=== PATIENT | female | born 1970 | race Caucasian/White ===

== ENCOUNTER 2023-05-21 15:51 | Emergency (ER) | payer MEDICAID, SELFPAY ==
[2023-05-21 16:00] VITALS: BP 119/63; PULSE 60; RESP 16; TEMP 36.8; O2SAT 98; BMI 26.6
--- NOTE | 2023-05-21 16:43 | XR_ITS ---
The [address] [address] Patient Name: TIGRE MENDOZA MRN: [id number] date: 1970 Sex: F Assigned Patient Location: ER Current Patient Location: ER Accession/Order Number: [id number] Exam Date: 05/21/2023 17:21 Report Date: 05/21/2023 17:38 At the request of: COSMO CHIANG Procedure: XR foot RT min 3V EXAM: XR foot RT min 3V HISTORY: Speaker fell on top of foot COMPARISON: None. TECHNIQUE: 3 views FINDINGS: No osseous lesion, fracture, dislocation or subluxation. Joint spaces are normal. No visualized effusion. No visualized soft tissue edema. XR/XR foot RT min 3V IMPRESSION: Normal x-rays Electronically authenticated by: DEAN MARTINEZ Date: 05/21/2023 17:38
--- NOTE | 2023-05-21 16:56 | PC.NURSE ---
pt presents to [facility] pt states that yesterday she was working in [employer] and dropped a speaker onto top of right foot. foot is swollen, bruised, and red at this time. ice applied. pulses palpable.
--- NOTE | 2023-05-21 16:58 | ED.LOWEXI1 ---
HPI - Extremity Injury (Lower) General Chief Complaint: Extremity Injury, Lower Stated Complaint: Extremity Injury, Lower Time Seen by Provider: 05/21/23 16:43 Source: patient Mode of arrival: walk-in History of Present Illness HPI Narrative: patient is a 53-year-old female presents the emergency department for the evaluation of an injury to the right foot that occurred yesterday. She dropped a garden tool in her shed on her dorsum of the right foot. She sustained an abrasion. Unknown last tetanus. No drainage from the area today. She is able to ambulate per reports pain and swelling to the dorsum of the foot, no other associated injuries. Related Data Previous Rx's Medication Instructions Recorded ketorolac 10 mg tablet 10 mg PO TID PRN pain #10 tabs 05/21/23 mupirocin 2 % topical ointment 1 applic topical BID #15 grams 05/21/23 tramadol 50 mg tablet 50 mg PO Q4H PRN pain #15 tabs 05/21/23 Allergies Allergy/AdvReac Type Severity Reaction Status Date / Time No Known Drug Allergies Allergy Verified 05/21/23 16:00 Review of Systems ROS Constitutional Denies: fever or chills Ears, nose, mouth, and throat Denies: throat pain Cardiovascular Denies: chest pain Respiratory Denies: shortness of breath or cough Gastrointestinal Denies: nausea or vomiting Musculoskeletal Reports: extremity pain; Denies: back pain or neck pain Integumentary/Breast Denies: rash Neurological Denies: headache Hematologic/Lymphatic Denies: easy bruising Exam Narrative Exam Narrative: Gen.: Awake, alert, in no distress Head: Normocephalic, atraumatic ENT: Moist mucous membranes Respiratory: No respiratory distress Extremities: Moves extremities equally, dorsum of the right foot with abrasion, mild edema, no ecchymosis or obvious deformity. Normal flexion and extension of the toes of the right foot. Psych: Normal mood and affect Neuro: No focal neuro deficit Skin: Warm, dry Constitutional Vital Signs, click to edit/add: Last Vital Signs Temp 98.2 F 05/21/23 16:00 Pulse 60 05/21/23 16:00 Resp 16 05/21/23 16:00 BP 119/63 05/21/23 16:00 Pulse Ox 98 05/21/23 16:00 O2 Del Method Room Air 05/21/23 16:00 Course Vital Signs Vital signs: Vital Signs Temperature 98.2 F 05/21/23 16:00 Pulse Rate 60 05/21/23 16:00 Respiratory Rate 16 05/21/23 16:00 Blood Pressure 119/63 05/21/23 16:00 Pulse Oximetry 98 05/21/23 16:00 Oxygen Delivery Method Room Air 05/21/23 16:00 Temperature 98.2 F 05/21/23 16:00 Pulse Rate 60 05/21/23 16:00 Respiratory Rate 16 05/21/23 16:00 Blood Pressure 119/63 05/21/23 16:00 Pulse Oximetry 98 05/21/23 16:00 Oxygen Delivery Method Room Air 05/21/23 16:00 MDM - Extremity Injury (Lower) MDM Narrative Medical decision making narrative: x-rays of the foot with no evidence of fracture or dislocation. Tetanus is updated and bacitracin applied to abrasion. Patient placed in a postop shoe for comfort. She is given a short course of analgesics, NSAIDs and antibiotic ointment to apply to the area of abrasion. Rest, ice, elevate. Follow-up with PCP and return to the Emergency Room if symptoms change or worsen Discharge Plan Discharge Chief Complaint: Extremity Injury, Lower Clinical Impression: Contusion of foot, right, Abrasion of foot, right Patient Disposition: Home, Self-Care Time of Disposition Decision: 17:44 Condition: Good Prescriptions / Home Meds: New tramadol 50 mg tablet 50 mg PO Q4H PRN (Reason: pain) Qty: 15 0RF ketorolac 10 mg tablet 10 mg PO TID PRN (Reason: pain) Qty: 10 0RF mupirocin 2 % ointment 1 applic topical BID Qty: 15 0RF Instructions: Foot Contusion (ED), Abrasion (ED) Stand Alone Forms: Portal Instructions Referrals: Juancarlos Sheth MD [Primary Care Provider] - 1 week
[2023-05-21] MEDS: KETOROLAC TROMETHAMINE 10 MG TABLET PO (17:07)
[2023-05-21] MEDS: ADACEL DIPH,PERTUSS(ACELL),TET VAC/PF 0.5 ML ADULT SYRINGE IM (17:07)
[2023-05-21] MEDS: BACITRACIN OINTMENT 28.4 GM TUBE 1 APPLIC TOPICAL (17:08)
== END 2023-05-21 17:56 | disposition home or self-care (01) ==
PROVIDERS: Emergency Provider Emergency Medicine Emergency Medical Services; PCP Family Medicine
DX: S90.31XA Contusion of right foot, initial encounter (principal); S50.811A Abrasion of right forearm, initial encounter; W20.8XXA Other cause of strike by thrown, projected or falling object, initial encounter; Z23 Encounter for immunization
CPT/HCPCS: 73630; 90471; 90715; 99284

== ENCOUNTER 2023-07-17 16:03 | Emergency (ER) | payer MEDICAID, SELFPAY ==
[2023-07-17] VITALS (23 sets, daily range): BP systolic 94–114; BP diastolic 59–71; PULSE 68–92; RESP 15–33; TEMP 36.4; O2SAT 100; BMI 24.2
--- NOTE | 2023-07-17 16:10 | ECG_ITS ---
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
[2023-07-17 16:25] LABS: Basophils Percent Auto 0.2 % (0.2-2.0); Eosinophils Absolute Auto 0.1 10^3/uL (0.0-0.7); Eosinophils Percent Auto 0.4 % (0.9-7.0); Hematocrit 44.5 % (36.0-48.0); Hemoglobin 14.8 g/dL (12.0-16.0); Immature Granulocytes Abs Auto 0.05 10^3/uL (0.00-0.03); Immature Granulocytes Pct Auto 0.3 % (0.0-0.5); Lymphocytes Absolute Auto 2.3 10^3/uL (1.2-3.8); Lymphocytes Percent Auto 15.4 % (20.5-60.0); Mean Corpuscular HGB Conc 33.3 g/dL (29.9-35.2); Mean Corpuscular Hemoglobin 30.5 pg (26.7-34.0); Mean Corpuscular Volume 91.8 fL (81.0-99.0); Mean Platelet Volume 10.6 fL (9.5-13.5); Monocytes Absolute Auto 1.2 10^3/uL (0.3-0.8); Monocytes Percent Auto 7.8 % (1.7-12.0); Neutrophils Absolute Auto 11.3 10^3/uL (1.4-6.5); Neutrophils Percent Auto 75.9 % (43.0-75.0); Platelet Count 288 10^3/uL (150-450); Red Blood Count 4.85 10^6/uL (4.20-5.40); Red Cell Distribution Width 13.1 % (11.0-15.0); White Blood Count 14.9 10^3/uL (4.0-11.0)
--- NOTE | 2023-07-17 16:25 | ED.CHESTPAI1 ---
HPI - Chest Pain General Chief Complaint: Chest Pain Stated Complaint: CHEST PAIN Time Seen by Provider: 07/17/23 16:10 Source: patient Mode of arrival: walk-in History of Present Illness HPI narrative: patient is a 53-year-old female with a history of high cholesterol who presents to the emergency department for the evaluation of chest pain that began one hour ago. Patient states she was driving into work when she developed significant tightness and heaviness in the center of the chest. It does not radiate. She states she was feeling short of breath. She went into work where he meant resources checked her vital signs and called her PCP, Dr. Sheth and she was referred to the Emergency Room. She is a one pack per day cigarette smoker. She has never had a previous stress test. She denies fevers, chills, cough, congestion. She states she recently finished prednisone for paresthesia to the right arm, the paresthesias improved while on the steroids and she states the paresthesia has now returned. She has no other peripheral edema. She states she is supposed to take a cholesterol medication that she does not take. At this time, she states that the tightness in her chest has lessened some. Risk Factors Coronary artery disease risk factors: smoking history and hyperlipidemia Related Data Home Medications Medication Instructions Recorded Confirmed ondansetron 4 mg disintegrating 4 mg PO Q8H PRN nausea and vomiting 07/17/23 07/17/23 tablet prednisone 20 mg tablet 20 mg PO DAILY 07/17/23 07/17/23 Allergies Allergy/AdvReac Type Severity Reaction Status Date / Time No Known Drug Allergies Allergy Verified 05/21/23 16:00 Review of Systems ROS Constitutional Denies: fever or chills Ears, nose, mouth, and throat Denies: throat pain Cardiovascular Reports: chest pain Respiratory Reports: shortness of breath; Denies: cough Gastrointestinal Denies: nausea or vomiting Musculoskeletal Denies: back pain or neck pain Integumentary/Breast Denies: rash Neurological Denies: headache Hematologic/Lymphatic Denies: easy bruising Exam Narrative Exam Narrative: Gen.: Awake, alert, in no distress Head: Normocephalic, atraumatic ENT: Moist mucous membranes Respiratory: No respiratory distress, lungs clear bilaterally Cardio: Regular rate and rhythm Gastrointestinal: Abdomen is soft, nondistended and nontender to palpation Extremities: Moves extremities equally, no peripheral edema Psych: Normal mood and affect Neuro: No focal neuro deficit Skin: Warm, dry, intact Constitutional Vital Signs, click to edit/add: Last Vital Signs Temp 97.6 F 07/17/23 16:09 Pulse 85 07/17/23 17:20 Resp 15 07/17/23 17:20 BP 114/71 07/17/23 16:12 Pulse Ox 100 07/17/23 16:12 O2 Del Method Room Air 07/17/23 16:09 Course Vital Signs Vital signs: Vital Signs Temperature 97.6 F 07/17/23 16:09 Pulse Rate 87 07/17/23 16:09 Respiratory Rate 18 07/17/23 16:09 Blood Pressure 114/71 07/17/23 16:09 Pulse Oximetry 100 07/17/23 16:09 Oxygen Delivery Method Room Air 07/17/23 16:09 Temperature 97.6 F 07/17/23 16:09 Pulse Rate 85 07/17/23 17:20 Respiratory Rate 15 07/17/23 17:20 Blood Pressure 114/71 07/17/23 16:12 Pulse Oximetry 100 07/17/23 16:12 Oxygen Delivery Method Room Air 07/17/23 16:09 MDM - Chest Pain MDM Narrative Medical decision making narrative: lab studies including d-dimer, BNP and initial troponin are within normal limits. Patient with no EKG changes in the Emergency Room. She was given aspirin, her pain improved while in the Emergency Room and she had no severe abdominal pain, chest pain or shortness of breath. Chest x-ray shows no evidence of acute cardiopulmonary changes. I discussed this with Dr. Sheth, he recommended that if the three hour repeat troponin for this patient is normal, she can be discharged and follow-up closely in the office. Heart score is a three. Return to the Emergency Room if symptoms change or worsen. Follow-up PCP. Repeat troponin at three hours is normal. Medical Records Data Attestation: I reviewed the patient's medical records. Lab Data Attestation: I reviewed the patient's lab results. Labs: Lab Results 07/17/23 Range/Units 16:18 WBC 14.9 H (4.0-11.0) 10^3/uL RBC 4.85 (4.20-5.40) 10^6/uL Hgb 14.8 (12.0-16.0) g/dL Hct 44.5 (36.0-48.0) % MCV 91.8 (81.0-99.0) fL MCH 30.5 (26.7-34.0) pg MCHC 33.3 (29.9-35.2) g/dL RDW 13.1 (11.0-15.0) % Plt Count 288 (150-450) 10^3/uL MPV 10.6 (9.5-13.5) fL Neut % (Auto) 75.9 H (43.0-75.0) % Lymph % (Auto) 15.4 L (20.5-60.0) % [place] % (Auto) 7.8 (1.7-12.0) % Eos % (Auto) 0.4 L (0.9-7.0) % Baso % (Auto) 0.2 (0.2-2.0) % Neut # (Auto) 11.3 H (1.4-6.5) 10^3/uL Lymph # (Auto) 2.3 (1.2-3.8) 10^3/uL [place] # (Auto) 1.2 H (0.3-0.8) 10^3/uL Eos # (Auto) 0.1 (0.0-0.7) 10^3/uL Baso # (Auto) 0.0 (0.0-0.1) 10^3/uL Abs Immat Gran (auto) 0.05 H (0.00-0.03) 10^3/uL Imm/Tot Granulo (auto) 0.3 (0.0-0.5) % PT 9.9 (9.0-11.6) sec INR 0.93 D-Dimer 0.21 (<=0.59) mg/L FEU Sodium 138 (136-145) mmol/L Potassium 3.3 L (3.5-5.1) mmol/L Chloride 103 (98-107) mmol/L Carbon Dioxide 30.1 (21.0-32.0) mmol/L Anion Gap 8.2 BUN 17.0 (7.0-18.0) mg/dL Creatinine 0.85 (0.55-1.02) mg/dL Est GFR ( Amer) >60 (>=60) Est GFR (Non-Af Amer) >60 (>=60) BUN/Creatinine Ratio 20.0 Glucose 106 (74-106) mg/dL Calcium 8.7 (8.5-10.1) mg/dL Total Bilirubin 0.4 (0.2-1.0) mg/dL AST 11 L (15-37) U/L ALT 18 (14-59) U/L Alkaline Phosphatase 99 (46-116) U/L Troponin I High Sens 5.4 (4.0-51.3) pg/mL NT-Pro-B Natriuret Pep 431.0 (<=900.0) pg/mL Total Protein 6.8 (6.4-8.2) g/dL Albumin 3.3 L (3.4-5.0) g/dL Globulin 3.5 g/dL Albumin/Globulin Ratio 0.9 Imaging Data Chest x-ray: Attestation: I have reviewed the pertinent imaging results. Radiologist's impression: Procedure: XR chest 1V EXAMINATION: XR chest 1V 07/17/2023 2:32 PM PDT HISTORY: Chest pain TECHNIQUE: Single frontal view of the chest acquired. COMPARISONS: None. FINDINGS: Lines/tubes/other: None. Heart and mediastinum: The heart and the mediastinum are within normal limits for technique. Bones: No acute osseous abnormality. Lungs: The lungs are clear. There is no evidence of pneumonia or pulmonary edema. Pleura: There is no significant pleural effusion or pneumothorax. Other: None. IMPRESSION: No acute cardiopulmonary abnormality. Electronically authenticated by: KRISH VILLALOBOS Date: 07/17/2023 17:33 ECG Data Attestation: I personally reviewed and interpreted this ECG as follows: (normal sinus rhythm at a rate of eighty-seven, no EKG ST elevation, no ectopy. EKG reviewed by attending physician) ECG interpretation date: 07/17/23 ECG interpretation time: 16:29 Heart Score History: Moderately Suspicious ECG: Normal Age: >45-<65 years Risk Factors: 1 or 2 Risk Factors Troponin: <Normal Limit Total Heart Score Recommendations & Risks:: 3 Discharge Plan Discharge Chief Complaint: Chest Pain Clinical Impression: Chest pain Patient Disposition: Home, Self-Care Time of Disposition Decision: 19:27 Condition: Good Prescriptions / Home Meds: No Action prednisone 20 mg tablet 20 mg PO DAILY ondansetron 4 mg tablet,disintegrating 4 mg PO Q8H PRN (Reason: nausea and vomiting) Instructions: Chest Pain (ED) Additional Instructions: Call Dr. Sheth's office tomorrow morning to schedule an appointment Stand Alone Forms: Portal Instructions Referrals: Juancarlos Sheth MD [Primary Care Provider] - As soon as possible
[2023-07-17] MEDS: ASPIRIN 81 MG TAB.CHEW 162 MG PO (16:31)
[2023-07-17 16:45] LABS: Alanine Aminotransferase 18 U/L (14-59); Albumin Globulin Ratio 0.9; Albumin Level 3.3 g/dL (3.4-5.0); Alkaline Phosphatase 99 U/L (46-116); Anion Gap 8.2; Aspartate Amino Transferase 11 U/L (15-37); Bilirubin Total 0.4 mg/dL (0.2-1.0); Calcium 8.7 mg/dL (8.5-10.1); Carbon Dioxide 30.1 mmol/L (21.0-32.0); Chloride 103 mmol/L (98-107); Estimated GFR (African America >60 (>=60); Estimated GFR (Non-African Ame >60 (>=60); Globulin 3.5 g/dL; Glucose 106 mg/dL (74-106); Potassium 3.3 mmol/L (3.5-5.1); Sodium 138 mmol/L (136-145); Total Protein 6.8 g/dL (6.4-8.2)
[2023-07-17 16:47] LABS: Troponin I High Sensitivity 5.4 pg/mL (4.0-51.3)
[2023-07-17 16:54] LABS: D Dimer 0.21 mg/L FEU (<=0.59)
--- NOTE | 2023-07-17 16:57 | XR_ITS ---
The [address] [address] Patient Name: TIGRE MENDOZA MRN: [id number] date: 1970 Sex: F Assigned Patient Location: ER Current Patient Location: ER Accession/Order Number: [id number] Exam Date: 07/17/2023 17:00 Report Date: 07/17/2023 17:33 At the request of: COSMO CHIANG Procedure: XR chest 1V EXAMINATION: XR chest 1V 07/17/2023 2:32 PM PDT HISTORY: Chest pain TECHNIQUE: Single frontal view of the chest acquired. COMPARISONS: None. FINDINGS: Lines/tubes/other: None. Heart and mediastinum: The heart and the mediastinum are within normal limits for technique. Bones: No acute osseous abnormality. Lungs: The lungs are clear. There is no evidence of pneumonia or pulmonary edema. Pleura: There is no significant pleural effusion or pneumothorax. Other: None. XR/XR chest 1V IMPRESSION: No acute cardiopulmonary abnormality. Electronically authenticated by: KRISH VILLALOBOS Date: 07/17/2023 17:33
[2023-07-17 17:07] LABS: INR 0.93; Prothrombin Time 9.9 sec (9.0-11.6)
[2023-07-17 19:14] LABS: Troponin I High Sensitivity 7.8 pg/mL (4.0-51.3)
== END 2023-07-17 19:45 | disposition home or self-care (01) ==
PROVIDERS: Physician Assistant; Emergency Provider Emergency Medicine; PCP Family Medicine
DX: R07.9 Chest pain, unspecified (principal); E78.00 Pure hypercholesterolemia, unspecified; F17.210 Nicotine dependence, cigarettes, uncomplicated
CPT/HCPCS: 36415; 71045; 80053; 83880; 84484; 85025; 85378; 85610; 93005; 99285

== ENCOUNTER 2023-07-19 12:26 | Outpatient (OUT) | payer MEDICAID, SELFPAY ==
--- NOTE | 2023-07-19 12:45 | CA_ITS ---
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1970 Requested By: SHOSHANA TAVERA Order Number: [id number] Reading MD: JIMMY TIDWELL Interpretive Statements Predominant rhythm is sinus with average rate of 83 bpm Tachycardia - max rate of 211 bpm (PSVT of 3 beat duration) - 24 episodes of PSVT with longest duration of 13 beats - longest episode of 39min 48 sec with rates between 113-132 bpm Bradycardia - min rate of 44 bpm - longest episode of 33min 51sec with rates between 50-58 bpm Ventricular ectopy - 2,079 total (<1%) - 2,062 PVC - 8 couplets - 9 trigeminy Patient triggered events: - associated with palpitation, SOB - associated with rates of 131, 112, 114, 101 and 134 bpm Impression: Predominant rhythm is sinus with average rate of 83 bpm Fastest rate of 211 bpm and slowest rate of 44 bpm 2,062 PVC, 8 couplets and 9 trigeminy Electronically Signed On 08-11-2023 12:29:23 EST by JIMMY TIDWELL
== END 2023-07-19 12:27 | disposition home or self-care (01) ==
LOC: CARD 12:27
PROVIDERS: PCP Family Medicine; Visit Provider Family Medicine
DX: R07.9 Chest pain, unspecified (principal)
CPT/HCPCS: 93246

== ENCOUNTER 2023-09-12 08:50 | Outpatient (OUT) | payer MEDICAID, SELFPAY ==
--- NOTE | 2023-09-12 08:54 | MR_ITS ---
The [address] [address] Patient Name: TIGRE MENDOZA MRN: [id number] date: 1970 Sex: F Assigned Patient Location: MRI Current Patient Location: MRI Accession/Order Number: [id number] Exam Date: 09/12/2023 09:00 Report Date: 09/12/2023 13:21 At the request of: SHOSHANA TAVERA Procedure: MR head/brain wo/w con EXAM: MR head/brain wo/w con HISTORY: Paresthesia R20.2 COMPARISON: None. TECHNIQUE: Multisequence MRI brain was performed with and without intravenous contrast. FINDINGS: There is no restricted diffusion to suggest acute infarct. There is no midline shift, mass effect, or abnormal extraaxial fluid collections. There are no abnormal parenchymal or leptomeningeal enhancement. The cortical sulci and ventricular system are within normal limits. Multiple nonspecific scattered foci of T2/FLAIR signal abnormality are identified in the subcortical and periventricular white matter, likely reflect chronic microvascular ischemic changes. The major intracranial flow voids are visualized. The cerebellar tonsils extend 3 mm below the level of the foramen magnum. The orbits demonstrate no suspicious enhancement or any focal lesions. The paranasal sinuses show no air-fluid level. There are mild mucosal thickening of bilateral frontal sinuses and ethmoid air cells. The mastoid air cells are clear. The calvarium and extracranial soft tissues are unremarkable. MR/MR head/brain wo/w con IMPRESSION: No acute intracranial abnormality or abnormal intracranial enhancement. Mild chronic microvascular ischemic changes. Low-lying cerebellar tonsils. Electronically authenticated by: LUIS FORD Date: 09/12/2023 13:21
--- OUTSIDE RECORDS SUMMARY | 2023-09-12 08:54 | XMS_ITS | CCD ---
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 Name Role Phone PHYSICIAN, DEFAULT Unavailable Unavailable PHYSICIAN, DEFAULT Unavailable Unavailable HOY, DR ANNA Admitting Unavailable HOY, DR ANNA Consulting Unavailable HOY, DR ANNA Attending Unavailable HOY, DR ANNA Attending Unavailable HOY, DR ANNA Admitting Unavailable HOY, DR ANNA Admitting Unavailable HOY, DR ANNA Primary Care Unavailable HOY, DR ANNA Attending Unavailable HOY, DR ANNA Admitting Unavailable HOY, DR ANNA Primary Care Unavailable HOY, DR ANNA Consulting Unavailable HOY, DR ANNA Attending Unavailable HOY, DR NANA Admitting Unavailable HOY, DR ANNA Primary Care Unavailable HOY, DR ANNA Consulting Unavailable HOY, DR ANNA Attending Unavailable JENIFFERGiuliano Attending Unavailable Allergies Allergy Classification Reported Allergen(s) Allergy Type Date of Onset Reaction(s) Facility Opioid Agonists (2 sources) Codeine Drug Allergy 04-08-2013 [facility] Repository Problems Active Problems Problem Classification Problem Date Documented Da te Episodic/Chronic Unclassified (3 sources) CONTACT W/AND (SUSP) EXPOS COVID-19; Translations: [CONTACT W/AND (SUSP) EXPOS COVID-19] Onset: 09-28-2020 Past or Other Problems Problem Classification Problem Date Documented Da te Episodic/Chronic Immunizations and screening for infectious disease (4 sources) Contact with and (suspected) exposure to other viral communicable diseases; Translations: [CONTCT EXPS OTH VIRL COMMUNICABL DZ] Onset: 07-13-2020 Episodic Other upper respiratory infections (1 source) Acute recurrent frontal sinusitis; Translations: [ACUTE RECURRENT FRONTAL SINUSITIS] Onset: 07-18-2020 Episodic Unclassified (1 source) CONTACT W/AND (SUSP) EXPOS COVID-19; Translations: [CONTACT W/AND (SUSP) EXPOS COVID-19] Onset: 09-23-2020 Results Test Name Value Interpretation Reference Range Guru itmuna Consenton 03-29-2023 Consent [id number] #[id number]:[id number] Normal [facility] Registrationon 03-29-2023 Registration [id number]:127 Normal [facility] FSHon 03-25-2021 FSH 29.0 mIU/mL Normal [facility] Comment on above: Result Comment: Adul t Female: Follicular phase 3.5 - 12.5 Ovulation phase 4.7 - 21.5 Luteal phase 1.7 - 7.7 Postmenopausal 25.8 - 134.8 Performed By: #### [facility] #### [facility] [address] [place], [place] [id number] Judi Lexus INSULINon 03-25-2021 Insulin 7.9 uIU/mL Normal 2.6-24.9 [facility] Comment on above: Performed By: #### C BC #### [facility] [address] [place] [address] Judi Lexus CBC AUTO DIFFon 03-24-2021 BASO # 0.0 103/ul Normal 0.0-0.1 [facility] Comment on above: Performed By: #### C BC #### [facility] [address] [place], [place] [id number] Judi Lexus Basophils/100 WBC (Bld) 0.4 % Normal 0.2-2.0 [facility] Comment on above: Performed By: #### C BC #### [facility] [address] [place], [place] [id number] Judi Lexus EO # 0.1 103/ul Normal 0.0-0.7 [facility] Comment on above: Performed By: #### C BC #### [facility] [address] [place], [place] [id number] Judi Lexus Eosinophils/100 WBC (Bld) 1.1 % Normal 0.9-7.0 [facility] Comment on above: Performed By: #### C BC #### [facility] [address] [address] Judi Lexus Erythrocyte distribution width (RBC) [Ratio] 13.1 % Normal 11.0-15.0 [facility] Comment on above: Performed By: #### C BC #### [facility] [address] [place] [address] Judi Lexus Hematocrit (Bld) [Volume fraction] 44.1 % Normal 36.0-48.0 [facility] Comment on above: Performed By: #### C BC #### [facility] [address] [place] [address] Judi Lexus Hemoglobin (Bld) [Mass/Vol] 14.9 g/dL Normal 12.0-16.0 [facility] Comment on above: Performed By: #### C BC #### [facility] [address] [place] [address] Judi Lexus IG # 0.01 10e3/ul Normal 0.00-0.03 [facility] Comment on above: Performed By: #### C BC #### [facility] [address] [place] [address] Judi Lexus IG % 0.1 % Normal 0.0-0.5 [facility] Comment on above: Performed By: #### C BC #### [facility] [address] [place] [address] Judi Lexus LYMPH # 1.7 103/ul Normal 1.2-3.8 [facility] Comment on above: Performed By: #### C BC #### [facility] [address] [place] [address] Judi Lexus Lymphocytes/100 WBC (Bld) 22.1 % Normal 20.5-60.0 [facility] Comment on above: Performed By: #### C BC #### [facility] [address] [place] [address] Judi Lexus MANUAL DIFF REQ NO Normal [facility] Comment on above: Performed By: #### C BC #### [facility] [address] [id number] Judi Alberts MCH (RBC) [Entitic mass] 30.0 pg Normal 26.7-34.0 [facility] Comment on above: Performed By: #### C BC #### [facility] [address] [place], [place] [id number] Judi Alberts MCHC (RBC) [Mass/Vol] 33.8 g/dL Normal 29.9-35.2 [facility] Comment on above: Performed By: #### C BC #### [facility] [address] [place], [place] [id number] Judi Alberts MCV (RBC) [Entitic vol] 88.7 fL Normal 81.0-99.0 [facility] Comment on above: Performed By: #### C BC #### [facility] [address] [place] [address] Judi Alberts MONO # 0.6 103/ul Normal 0.3-0.8 [facility] Comment on above: Performed By: #### C BC #### [facility] [address] [place], [place] [address] Judi Alberts Monocytes/100 WBC (Bld) 8.3 % Normal 1.7-12.0 [facility] Comment on above: Performed By: #### C BC #### [facility] [address] [place] [address] Judi Alberts NEUT # 5.1 103/ul Normal 1.4-6.5 [facility] Comment on above: Performed By: #### C BC #### [facility] [address] [place], [place] [id number] Judi Lexus Neutrophils/100 WBC (Bld) 68.0 % Normal 43.0-75.0 [facility] Comment on above: Performed By: #### C BC #### [facility] [address] [place], [place] [address] Judibeckie Alberts Platelet mean volume (Bld) [Entitic vol] 10.3 fL Normal 9.5-13.5 [facility] Comment on above: Performed By: #### C BC #### [facility] [address] [place], [place] [address] Judi Alberts PLT 270 103/ul Normal 150-450 [facility] Comment on above: Performed By: #### C BC #### [facility] [address] [place], [place] [address] Judi Alberts RBC 4.97 106/ul Normal 4.20-5.40 [facility] Comment on above: Performed By: #### C BC #### [facility] [address] [place], [place] [address] Judi Hartmanen WBC 7.5 103/ul Normal 4.0-11.0 [facility] Comment on above: Performed By: #### C BC #### [facility] [address] [place], [place] [address] Judi Alberts FREE THYROXINE INDEX T7on FTI 3.15 Normal [facility] Comment on above: Performed By: #### C MP, LIPID, TSH, T7 #### [facility] [address] [place] [address] Judi Alberts T3U 35.0 % Normal 23.5-40.5 [facility] Comment on above: Performed By: #### C MP, LIPID, TSH, T7 #### [facility] [address] [place], [place] [address] Judi Alberts T4 [Mass/Vol] 9.00 ug/dL Normal 5.53-11.00 [facility] Comment on above: Performed By: #### C MP, LIPID, TSH, T7 #### [facility] [address] [place], [place] [address] Judi Alberts GLYCOHEMOGLOBIN A1Con 2020 ADA RECOMMENDATION ADA THERAPEUTIC TARGET 6.0 - 7.0 ACTION SUGGESTED > 7.0 Normal [facility] Comment on above: Performed By: #### A 1C #### [facility] [address] [place], [place] [address] Judi Alberts Glucose [Mass/Vol] 105 mg/dL Normal [facility] Comment on above: Performed By: #### A 1C #### [facility] [address] [place], [place] [address] Judi Alberts HbA1c (Bld) [Mass fraction] 5.3 % Normal <=6.0 [facility] Comment on above: Performed By: #### A 1C #### [facility] [address] [place], [place] [address] Judi Alberts IRONon 03-24-2021 Iron [Mass/Vol] 36.0 ug/dL Critically low 37.0-170.0 [facility] Comment on above: Performed By: #### I SUZY #### [facility] [address] [id number] Judi Alberts LIPID PROFILEon 03-24-2021 CHOL-HDL RATIO NORM SEE BELOW Normal [facility] Comment on above: Result Comment: 3.3 - 4.4 LOW RISK 4.4 - 7.1 AVERAGE RISK 7.1 - 11.0 MODERATE RISK >11.0 HIGH RISK Performed By: #### C MP, LIPID, TSH, T7 #### [facility] [address] [place], [place] [address] Judi Lexus Cholesterol [Mass/Vol] 226 mg/dL Critically high <=200 [facility] Comment on above: Performed By: #### C MP, LIPID, TSH, T7 #### [facility] [address] [id number] Judi Lexus Cholesterol in HDL [Mass/Vol] 55 mg/dL Normal [facility] Comment on above: Performed By: #### C MP, LIPID, TSH, T7 #### [facility] [address] [phone] Judi Lexus Cholesterol in LDL [Mass/Vol] 161.6 mg/dL Normal [facility] Comment on above: Performed By: #### C MP, LIPID, TSH, T7 #### [facility] [address] [place], [place] [address] Judi Lexus Cholesterol.total/Cho lesterol in HDL [Mass ratio] 4.1 {ratio} Normal [facility] Comment on above: Performed By: #### C MP, LIPID, TSH, T7 #### [facility] [address] [place], [place] [address] Judi Lexus HDL NORMAL > or = 60 mg/dl - LOW CARDIOVASCULAR RISK <40 mg/dl - HIGH CARDIOVASCULAR RISK Normal [facility] Comment on above: Performed By: #### C MP, LIPID, TSH, T7 #### [facility] [address] [place], [place] [address] Judi Lexus LDL CALC NORMAL SEE BELOW Normal [facility] Comment on above: Result Comment: <100 mg/dl OPTIMAL 100 - 129 mg/dl NEAR OR ABOVE OPTIMAL 130 - 159 mg/dl BORDERLINE HIGH 160 - 189 mg/dl HIGH >190 mg/dl VERY HIGH Performed By: #### C MP, LIPID, TSH, T7 #### [facility] [address] [place], [place] [address] Judi Lexus Triglyceride [Mass/Vol] 47 mg/dL Normal <=150 [facility] Comment on above: Performed By: #### C MP, LIPID, TSH, T7 #### [facility] [address] [place], [place] [address] Judi Lexus VLDL CALC 9.4 mg/dL Normal [facility] Comment on above: Performed By: #### C MP, LIPID, TSH, T7 #### [facility] [address] [place], [place] [address] Judibeckie Hartmanen PROF 14(COMP METB)on 021 Albumin [Mass/Vol] 3.4 g/dL Critically low 3.5-5.0 [facility] Comment on above: Performed By: #### C MP, LIPID, TSH, T7 #### [facility] [address] [place] [address] Judi Lexus Albumin/Globulin [Mass ratio] 0.9 {ratio} Normal [facility] Comment on above: Performed By: #### C MP, LIPID, TSH, T7 #### [facility] [address] [place], [place] [address] Judi Lexus ALP [Catalytic activity/Vol] 95 U/L Normal 38-126 [facility] Comment on above: Performed By: #### C MP, LIPID, TSH, T7 #### [facility] [address] [place], [place] [address] Judi Lexus ALT [Catalytic activity/Vol] 17 U/L Normal 9-52 [facility] Comment on above: Performed By: #### C MP, LIPID, TSH, T7 #### [facility] [address] [address] Judi Lexus Anion gap [Moles/Vol] 12.0 mmol/L Normal [facility] Comment on above: Performed By: #### C MP, LIPID, TSH, T7 #### [facility] [address] [address] Judi Lexus AST [Catalytic activity/Vol] 14 U/L Normal 14-36 [facility] Comment on above: Performed By: #### C MP, LIPID, TSH, T7 #### [facility] [address] [place] [address] Judi Lexus Bilirubin [Mass/Vol] 0.3 mg/dL Normal 0.2-1.3 [facility] Comment on above: Performed By: #### C MP, LIPID, TSH, T7 #### [facility] [address] [place] [address] Judi Lexus Calcium [Mass/Vol] 9.0 mg/dL Normal 8.4-10.2 [facility] Comment on above: Performed By: #### C MP, LIPID, TSH, T7 #### [facility] [address] [place] [address] Judi Lexus Chloride [Moles/Vol] 105 mmol/L Normal 98-107 [facility] Comment on above: Performed By: #### C MP, LIPID, TSH, T7 #### [facility] [address] [place] [address] Judi Lexus CO2 [Moles/Vol] 26.3 mmol/L Normal 22.0-30.0 [facility] Comment on above: Performed By: #### C MP, LIPID, TSH, T7 #### [facility] [address] [place] [address] Judi Lexus Creatinine [Mass/Vol] 0.89 mg/dL Normal 0.52-1.04 [facility] Comment on above: Performed By: #### C MP, LIPID, TSH, T7 #### [facility] [address] [place], [place] [address] Judi Lexus EGFR-AF ZAMBIAN >60 Normal >=60 [facility] Comment on above: Performed By: #### C MP, LIPID, TSH, T7 #### [facility] [address] [address] Judi Lexus EGFR-NON AF ZAMBIAN >60 Normal >=60 [facility] Comment on above: Performed By: #### C MP, LIPID, TSH, T7 #### [facility] [address] [id number] Judi Lexus Globulin (S) [Mass/Vol] 3.6 g/dL Normal [facility] Comment on above: Performed By: #### C MP, LIPID, TSH, T7 #### [facility] [address] [address] Judi Lexus Glucose [Mass/Vol] 98 mg/dL Normal 74-106 [facility] Comment on above: Performed By: #### C MP, LIPID, TSH, T7 #### [facility] [address] [place] [address] Judi Lexus Potassium [Moles/Vol] 4.3 mmol/L Normal 3.4-5.0 [facility] Comment on above: Performed By: #### C MP, LIPID, TSH, T7 #### [facility] [address] [place] [address] Judi Lexus Protein [Mass/Vol] 7.0 g/dL Normal 6.1-8.2 [facility] Comment on above: Performed By: #### C MP, LIPID, TSH, T7 #### [facility] [address] [place] [address] Judi Lexus Sodium [Moles/Vol] 139 mmol/L Normal 137-145 [facility] Comment on above: Performed By: #### C MP, LIPID, TSH, T7 #### [facility] [address] [place] [address] Judi Lexus Urea nitrogen [Mass/Vol] 19.0 mg/dL Critically high 7.0-17.0 [facility] Comment on above: Performed By: #### C MP, LIPID, TSH, T7 #### [facility] [address] [place], [place] [address] Judi Alberts Urea nitrogen/Creatinine [Mass ratio] 21.3 mg/mg Normal [facility] Comment on above: Performed By: #### C MP, LIPID, TSH, T7 #### [facility] [address] [place], [place] [address] Judi Alberts TSHon 03-24-2021 TSH 1.176 uIU/mL Normal 0.470-4.680 [facility] Comment on above: Performed By: #### C MP, LIPID, TSH, T7 #### [facility] [address] [address] Judi Alberts TSH RANGE SEE BELOW Normal [facility] Comment on above: Result Comment: <0.3 4 UIU/ml HYPERTHYROID 0.34-5.60 UIU/ml EUTHYROID >5.60 UIU/ml HYPOTHYROID Performed By: #### C MP, LIPID, TSH, T7 #### [facility] [address] [address] Judi Alberts Covid-19 PCR (CVDTBH)on EUA Statement SEE BELOW Normal [facility] Comment on above: Result Comment: This test is not yet approved or cleared by the [place] FDA. When there are no FDA-approved or cleared tests available, and other criteria are met, FDA can make tests available under an emergency access mechanism called an Emergency Use Authorization (EUA). The EUA for this test is supported by the [employer] [place] [employer] of Health and Human Service?s (HHS?s) declaration that circumstances exist to justify the emergency use of in vitro diagnostics for the detection and/or diagnosis of the virus that causes COVID-19. This EUA will remain in effect (meaning this test can be used) for the duration of the COVID-19 declaration justifying emergency of IVDs, unless it is terminated or revoked by FDA (after which the test may no longer be used). When diagnostic testing is negative, the possibility of a false negative should be considered in the context of a patients recent exposures and the presence of clinical signs and symptoms consistent with SARS-CoV-2. Performed By: #### C VDTBH #### [facility] [address] [place] [address] Judi Alberts SARS-CoV-2 (COVID-19) RNA JEWEL+probe Ql (Unsp spec) Not detected Normal NOT DETECTED [facility] Comment on above: Result Comment: This test is not yet approved or cleared by the [place] FDA. When there are no FDA-approved or cleared tests available, and other criteria are met, FDA can make tests available under an emergency access mechanism called an Emergency Use Authorization (EUA). The EUA for this test is supported by the [place] of Health and Human Service's (HHS's) declaration that circumstances exist to justify the emergency use of in vitro diagnostics for the detection and/or diagnosis of the virus that causes COVID-19. This EUA will remain in effect (meaning this test can be used) for the duration of the COVID-19 declaration justifying emergency of IVDs, unless it is terminated or revoked by FDA (after which the test may no longer be used). Performed By: #### C [facility] #### [facility] [address] [place] [address] Judi Alberts COVID-19 PCRon 07-14-2020 SARS-CoV-2 (COVID-19) RNA JEWEL+probe Ql (Unsp spec) Not detected Normal Not Detected [facility] Comment on above: Result Comment: This nucleic acid amplification test was developed and its performance characteristics determined by [facility]. Nucleic acid amplification tests include PCR and TMA. This test has not been FDA cleared or approved. This test has been authorized by FDA under an Emergency Use Authorization (EUA). This test is only authorized for the duration of time the declaration that circumstances exist justifying the authorization of the emergency use of in vitro diagnostic tests for detection of SARS-CoV-2 virus and/or diagnosis of COVID-19 infection under section 564(b)(1) of the Act, 21 U.S.C. 360bbb-3(b) (1), unless the authorization is terminated or revoked sooner. When diagnostic testing is negative, the possibility of a false negative result should be considered in the context of a patient's recent exposures and the presence of clinical signs and symptoms consistent with COVID-19. An individual without symptoms of COVID-19 and who is not shedding SARS-CoV-2 virus would expect to have a negative (not detected) result in this assay. Performed By: #### C VDPCR #### [facility] [address] [place], [place] [address] Judi Alberts Encounters Encounter Date Encounter Type Care Provider Facility Start: 03-29-2023 End: 03-30-2023 ambulatory Giuliano SWIFT Facility:[facility] Start: 05-17-[address] SHOSHANA TAVERA Facility :[facility] Start: 04-03-2021 Encounter for genera l adult medical examination without abnormal findings DR SHOSHANA TAVERA [facility] Start: 03-24-2021 End: 03-25-[address] SHOSHANA TAVERA Facility:[facility] Start: 03-24-2021 End: 03-25-2021 Encounter for general adult medical examination without abnormal findings DR SHOSHANA TAVERA Facility:[facility] Start: 09-23-2020 End: 09-23-[address] SHOSHANA TAVERA Facility:[facility] Start: 07-13-2020 End: 07-14-[address] SHOSHANA TAVERA Facility:[facility] Start: 06-05-[address] SHOSHANA TAVERA Facility :[facility] Start: 10-25-2017 End: 10-26-2017 Ambulatory DEFAULT PHYSICIAN Facility:[facility] Payers Date Payer Category Payer Unknown [id number] 11.01.83 [id number] 1970 Unknown [id number] 11.01.83 [id number] 1971 Unknown [id number] 1971 Unknown [id number]. [id number] 1971 Unknown [id number] Private Health Insurance [id number] Self-pay [id number] Unknown Summary Purpose Family History No Family History Records FoundNo Family History Records FoundNo Family History Records Found Advance Directives No Advanced Directives Records FoundNo Advanced Directives Records FoundNo Advanced Directives Records Found Additional Source Comments INFORMATION SOURCE (unrecogn ized section and content) DATE CREATED AUTHOR 03/10/2018 [facility] DATE CREATED AUTHOR AUTHOR'S ORGANIZ ATION 04/04/2021 [facility] DATE CREATED AUTHOR AUTHOR'S ORGANIZ ATION 03/30/2023 [facility] FOR RECORDS PERTAINING TO PATIENTS WHO ARE OR HAVE BEEN ENROLLED IN A CHEMICAL DEPENDENCY/SUBSTANCEABUSE PROGRAM, SOME INFORMATION MAY BE OMITTED. This clinical summary was aggregated from multiple sources. Caution should be exercised in using it in the provision of clinical care. This summary normalizes information from multiple sources, and as a consequence, information in this document may materially change the coding, format and clinical context of patient data. In addition, data may be omitted in some cases. CLINICAL DECISIONS SHOULD BE BASED ON THE PRIMARY CLINICAL RECORDS. [facility]. provides no warranty or guarantee of the accuracy or completeness of information in this document.
--- NOTE | 2023-09-12 08:55 | CT_ITS ---
[address] [address] Patient Name: TIGRE MENDOZA MRN: [id number] date: 1970 Sex: F Assigned Patient Location: MRI Current Patient Location: Accession/Order Number: [id number] Exam Date: 09/12/2023 09:48 Report Date: 09/13/2023 15:25 At the request of: SHOSHANA TAVERA Procedure: CT lung screening low-dose EXAMINATION: CT lung screening low-dose HISTORY: Well Adult Z00.00 COMPARISON: No relevant comparison available. TECHNIQUE: Axial, Coronal, and Sagittal images were created without the administration of IV contrast material. Dose reduction techniques were achieved by using automated exposure control and/or adjustment of mA and/or kV according to patient size and/or use of iterative reconstruction technique. FINDINGS: LUNGS: No visible pulmonary disease. PLEURA: No mass, effusion, or pneumothorax. VASCULATURE: No abnormality. MICHELLE: No mass or pathologic adenopathy. MEDIASTINUM: No mass or pathologic adenopathy. CARDIAC: No enlargement, pericardial thickening, or significant calcification. AORTA: No aneurysm or dissection. CHEST WALL: No mass or axillary adenopathy BONES: No bone lesion or fracture. LIMITED ABDOMEN: No suspicious findings. Limited images of the upper abdomen. OTHER: Negative. CT/CT lung screening low-dose IMPRESSION: 1. Lung-RADS Category 1 Negative. No nodules and definitely benign nodules. Continue annual screening with LDCT in 12 months. Electronically authenticated by: EDSON CAN Date: 09/13/2023 15:25
== END 2023-09-12 08:51 | disposition home or self-care (01) ==
LOC: MRI 08:51
PROVIDERS: PCP Family Medicine; Visit Provider Family Medicine
DX: Z00.00 Encounter for general adult medical examination without abnormal findings (principal); R20.2 Paresthesia of skin
CPT/HCPCS: 70553; 71271; A9575

== ENCOUNTER 2023-10-04 06:53 | Outpatient (OUT) | payer MEDICAID, SELFPAY ==
--- OUTSIDE RECORDS SUMMARY | 2023-10-04 06:57 | XMS_ITS | CCD ---
Author Name Unknown Address [address] [place] [address] Organization [facility] Care Team Providers Care Signals Intelligence Analysis Manager Name Role Phone PHYSICIAN, DEFAULT Unavailable Unavailable [...] (2 sources) Codeine Drug Allergy 04-08-2013 [facility] Repository Problems Active Problems Problem Classification [...] Reference Range Guru itmuna Consenton 03-29-2023 Consent [id number] #1.00CD:127 Normal [facility] Registrationon 03-29-2023 Registration [id number]#1.00CD:127 Normal [facility] FSHon 03-25-2021 FSH 29.0 mIU/mL Normal [facility] Comment on above: Result Comment: Adul t Female: Follicular phase 3.5 - 12.5 Ovulation phase 4.7 - 21.5 Luteal phase 1.7 - 7.7 Postmenopausal 25.8 - 134.8 Performed By: #### [facility] #### [facility] [address] [place], [place] [id number] Juid Lexus INSULINon 03-25-2021 Insulin 7.9 uIU/mL Normal 2.6-24.9 [facility] Comment on above: Performed By: #### C BC #### [facility] [address] [place] [address] Judi Lexus CBC AUTO DIFFon 03-24-2021 BASO # 0.0 103/ul Normal 0.0-0.1 [facility] Comment on above: Performed By: #### C BC #### [facility] [address] [place], [place] [address] Judi Lexus Basophils/100 WBC (Bld) 0.4 % Normal 0.2-2.0 [facility] Comment on above: Performed By: #### C BC #### [facility] [address] [place], [place] [address] Judi Lexus EO # 0.1 103/ul Normal 0.0-0.7 [facility] Comment on above: Performed By: #### C BC #### [facility] [address] [place], [place] [address] Judi Lexus Eosinophils/100 WBC (Bld) 1.1 % Normal 0.9-7.0 [facility] Comment on above: Performed By: #### C BC #### [facility] [address] [address] Judi Lexus Erythrocyte distribution width (RBC) [Ratio] 13.1 % Normal 11.0-15.0 [facility] Comment on above: Performed By: #### C BC #### [facility] [address] [place] [address] Judi Lexus Hematocrit (Bld) [Volume fraction] 44.1 % Normal 36.0-48.0 [facility] Comment on above: Performed By: #### C BC #### [facility] [address] [place] [address] Judi Lexus Hemoglobin (Bld) [Mass/Vol] 14.9 g/dL Normal 12.0-16.0 [facility] Comment on above: Performed By: #### C BC #### [facility] [address] [place] [address] Judi Lexus IG # 0.01 10e3/ul Normal 0.00-0.03 [facility] Comment on above: Performed By: #### C BC #### [facility] [address] [place] [address] Judi Lexus IG % 0.1 % Normal 0.0-0.5 [facility] Comment on above: Performed By: #### C BC #### [facility] [address] [place] [address] Judi Lexus LYMPH # 1.7 103/ul Normal 1.2-3.8 [facility] Comment on above: Performed By: #### C BC #### [facility] [address] [place] [address] Judi Lexus Lymphocytes/100 WBC (Bld) 22.1 % Normal 20.5-60.0 [facility] Comment on above: Performed By: #### C BC #### [facility] [address] [place] [address] Judi Lexus MANUAL DIFF REQ NO Normal [facility] Comment on above: Performed By: #### C BC #### [facility] [address] [id number] Judi Alberts MCH (RBC) [Entitic mass] 30.0 pg Normal 26.7-34.0 [facility] Comment on above: Performed By: #### C BC #### [facility] [address] [place], [place] [address] Judi Alberts MCHC (RBC) [Mass/Vol] 33.8 g/dL Normal 29.9-35.2 [facility] Comment on above: Performed By: #### C BC #### [facility] [address] [place], [place] [address] Judi Alberts MCV (RBC) [Entitic vol] 88.7 fL Normal 81.0-99.0 [facility] Comment on above: Performed By: #### C BC #### [facility] [address] [place] [address] Judi Alberts MONO # 0.6 103/ul Normal 0.3-0.8 [facility] Comment on above: Performed By: #### C BC #### [facility] [address] [place], [place] [address] Judi Alberts Monocytes/100 WBC (Bld) 8.3 % Normal 1.7-12.0 [facility] Comment on above: Performed By: #### C BC #### [facility] [address] [place] [address] Judi Alberts NEUT # 5.1 103/ul Normal 1.4-6.5 [facility] Comment on above: Performed By: #### C BC #### [facility] [address] [place], [place] [address] Judi Lexus Neutrophils/100 WBC (Bld) 68.0 % Normal 43.0-75.0 [facility] Comment on above: Performed By: #### C BC #### [facility] [address] [place], [place] [address] Judibeckie Alberts Platelet mean volume (Bld) [Entitic vol] 10.3 fL Normal 9.5-13.5 [facility] Comment on above: Performed By: #### C BC #### [facility] [address] [place], [place] [address] Judi Alberts PLT 270 103/ul Normal 150-450 [facility] Comment on above: Performed By: #### C BC #### [facility] [address] [place], [place] [address] Judi Alberts RBC 4.97 106/ul Normal 4.20-5.40 [facility] Comment on above: Performed By: #### C BC #### [facility] [address] [place], [place] [address] Judi Hartmanen WBC 7.5 103/ul Normal 4.0-11.0 [facility] Comment on above: Performed By: #### C BC #### [facility] [address] [place], [place] [address] Judi Alberts FREE THYROXINE INDEX T7on FTI 3.15 Normal [facility] Comment on above: Performed By: #### C MP, LIPID, TSH, T7 #### [facility] [address] [place] [address] Judi Alberts T3U 35.0 % Normal 23.5-40.5 [facility] Comment on above: Performed By: #### C MP, LIPID, TSH, T7 #### [facility] [address] [place], [place] [address] Judi Alberts T4 [Mass/Vol] 9.00 ug/dL Normal 5.53-11.00 [facility] Comment on above: Performed By: #### C MP, LIPID, TSH, T7 #### [facility] [address] [place], [place] [address] Judi Alberts GLYCOHEMOGLOBIN A1Con 2020 ADA RECOMMENDATION ADA THERAPEUTIC TARGET 6.0 - 7.0 ACTION SUGGESTED > 7.0 Normal [facility] Comment on above: Performed By: #### A 1C #### [facility] [address] [place], [place] [address] Judi Alberts Glucose [Mass/Vol] 105 mg/dL Normal [facility] Comment on above: Performed By: #### A 1C #### [facility] [address] [place], [place] [address] Judi Alberts HbA1c (Bld) [Mass fraction] 5.3 % Normal <=6.0 [facility] Comment on above: Performed By: #### A 1C #### [facility] [address] [place], [place] [address] Judi Alberts IRONon 03-24-2021 Iron [Mass/Vol] 36.0 ug/dL Critically low 37.0-170.0 [facility] Comment on above: Performed By: #### I SUZY #### [facility] [address] [id number] Judi Alberts LIPID PROFILEon 03-24-2021 CHOL-HDL RATIO NORM SEE BELOW Normal [facility] Comment on above: Result Comment: 3.3 - 4.4 LOW RISK 4.4 - 7.1 AVERAGE RISK 7.1 - 11.0 MODERATE RISK >11.0 HIGH RISK Performed By: #### C MP, LIPID, TSH, T7 #### [facility] [address] [place], [place] [address] Judi Lexus Cholesterol [Mass/Vol] 226 mg/dL Critically high <=200 [facility] Comment on above: Performed By: #### C MP, LIPID, TSH, T7 #### [facility] [address] [id number] Judi Lexus Cholesterol in HDL [Mass/Vol] 55 mg/dL Normal [facility] Comment on above: Performed By: #### C MP, LIPID, TSH, T7 #### [facility] [address] [id number] Judi Lexus Cholesterol in LDL [Mass/Vol] 161.6 mg/dL Normal [facility] Comment on above: Performed By: #### C MP, LIPID, TSH, T7 #### [facility] [address] [place], [place] [address] Judi Lexus Cholesterol.total/Cho lesterol in HDL [Mass ratio] 4.1 {ratio} Normal [facility] Comment on above: Performed By: #### C MP, LIPID, TSH, T7 #### [facility] [address] [place], [place] [address] Judi Lexus HDL NORMAL > or = 60 mg/dl - LOW CARDIOVASCULAR RISK <40 mg/dl - HIGH CARDIOVASCULAR RISK Normal [facility] Comment on above: Performed By: #### C MP, LIPID, TSH, T7 #### [facility] [address] [place], [place] [address] Judi Lexus LDL CALC NORMAL SEE BELOW Normal [facility] Comment on above: Result Comment: <100 mg/dl OPTIMAL 100 - 129 mg/dl NEAR OR ABOVE OPTIMAL 130 - 159 mg/dl BORDERLINE HIGH 160 - 189 mg/dl HIGH >190 mg/dl VERY HIGH Performed By: #### C MP, LIPID, TSH, T7 #### [facility] [address] [place], [place] [address] Judi Lexus Triglyceride [Mass/Vol] 47 mg/dL Normal <=150 [facility] Comment on above: Performed By: #### C MP, LIPID, TSH, T7 #### [facility] [address] [place], [place] [address] Judi Lexus VLDL CALC 9.4 mg/dL Normal [facility] Comment on above: Performed By: #### C MP, LIPID, TSH, T7 #### [facility] [address] [place], [place] [address] Judibeckie Hartmanen PROF 14(COMP METB)on 021 Albumin [Mass/Vol] 3.4 g/dL Critically low 3.5-5.0 [facility] Comment on above: Performed By: #### C MP, LIPID, TSH, T7 #### [facility] [address] [place] [address] Judi Lexus Albumin/Globulin [Mass ratio] 0.9 {ratio} Normal [facility] Comment on above: Performed By: #### C MP, LIPID, TSH, T7 #### [facility] [address] [place], [place] [address] Judi Lexus ALP [Catalytic activity/Vol] 95 U/L Normal 38-126 [facility] Comment on above: Performed By: #### C MP, LIPID, TSH, T7 #### [facility] [address] [place], [place] [address] Judi Lexus ALT [Catalytic activity/Vol] 17 U/L Normal 9-52 [facility] Comment on above: Performed By: #### C MP, LIPID, TSH, T7 #### [facility] [address] [address] Judi Lexus Anion gap [Moles/Vol] 12.0 mmol/L Normal [facility] Comment on above: Performed By: #### C MP, LIPID, TSH, T7 #### [facility] [address] [address] Judi Lexus AST [Catalytic activity/Vol] 14 U/L Normal 14-36 [facility] Comment on above: Performed By: #### C MP, LIPID, TSH, T7 #### [facility] [address] [place] [address] Judi Lexus Bilirubin [Mass/Vol] 0.3 mg/dL Normal 0.2-1.3 [facility] Comment on above: Performed By: #### C MP, LIPID, TSH, T7 #### [facility] [address] [place] [address] Judi Lexus Calcium [Mass/Vol] 9.0 mg/dL Normal 8.4-10.2 [facility] Comment on above: Performed By: #### C MP, LIPID, TSH, T7 #### [facility] [address] [place] [address] Judi Lexus Chloride [Moles/Vol] 105 mmol/L Normal 98-107 [facility] Comment on above: Performed By: #### C MP, LIPID, TSH, T7 #### [facility] [address] [place] [address] Judi Lexus CO2 [Moles/Vol] 26.3 mmol/L Normal 22.0-30.0 [facility] Comment on above: Performed By: #### C MP, LIPID, TSH, T7 #### [facility] [address] [place] [address] Judi Lexus Creatinine [Mass/Vol] 0.89 mg/dL Normal 0.52-1.04 [facility] Comment on above: Performed By: #### C MP, LIPID, TSH, T7 #### [facility] [address] [place], [place] [address] Judi Lexus EGFR-AF IVORIAN >60 Normal >=60 [facility] Comment on above: Performed By: #### C MP, LIPID, TSH, T7 #### [facility] [address] [address] Judi Lexus EGFR-NON AF IVORIAN >60 Normal >=60 [facility] Comment on above: Performed By: #### C MP, LIPID, TSH, T7 #### [facility] [address] [id number] Judi Lexus Globulin (S) [Mass/Vol] 3.6 g/dL Normal [facility] Comment on above: Performed By: #### C MP, LIPID, TSH, T7 #### [facility] [address] [address] Judi Lexus Glucose [Mass/Vol] 98 mg/dL Normal 74-106 [facility] Comment on above: Performed By: #### C MP, LIPID, TSH, T7 #### [facility] [address] [place] [address] Judi Lexus Potassium [Moles/Vol] 4.3 mmol/L Normal 3.4-5.0 [facility] Comment on above: Performed By: #### C MP, LIPID, TSH, T7 #### [facility] [address] [place] [address] Judi Lexus Protein [Mass/Vol] 7.0 g/dL Normal 6.1-8.2 [facility] Comment on above: Performed By: #### C MP, LIPID, TSH, T7 #### [facility] [address] [place] [address] Judi Lexus Sodium [Moles/Vol] 139 mmol/L Normal 137-145 [facility] Comment on above: Performed By: #### C MP, LIPID, TSH, T7 #### [facility] [address] [place] [address] Judi Lexus Urea nitrogen [Mass/Vol] 19.0 mg/dL Critically high 7.0-17.0 [facility] Comment on above: Performed By: #### C MP, LIPID, TSH, T7 #### [facility] [address] [place], [place] [address] Judi Alberts Urea nitrogen/Creatinine [Mass ratio] 21.3 mg/mg Normal [facility] Comment on above: Performed By: #### C MP, LIPID, TSH, T7 #### [facility] [address] [place], [place] [address] Judi Alberts TSHon 03-24-2021 TSH 1.176 uIU/mL Normal 0.470-4.680 [facility] Comment on above: Performed By: #### C MP, LIPID, TSH, T7 #### [facility] [address] [address] Judi Alberts TSH RANGE SEE BELOW Normal [facility] Comment on above: Result Comment: <0.3 4 UIU/ml HYPERTHYROID 0.34-5.60 UIU/ml EUTHYROID >5.60 UIU/ml HYPOTHYROID Performed By: #### C MP, LIPID, TSH, T7 #### [facility] [address] [address] Judi Alberts Covid-19 PCR (CVDTBH)on EUA Statement SEE BELOW Normal [facility] Comment on above: Result Comment: This test is not yet approved or cleared by the [place] FDA. When there are no FDA-approved or cleared tests available, and other criteria are met, FDA can make tests available under an emergency access mechanism called an Emergency Use Authorization (EUA). The EUA for this test is supported by the Labeling Strategist of Health and Human Service?s (HHS?s) declaration [...] SARS-CoV-2. Performed By: #### C VDTBH #### [facility] [address] [place] [address] Judi Alberts SARS-CoV-2 (COVID-19) RNA JEWEL+probe Ql (Unsp spec) Not detected Normal NOT DETECTED [facility] Comment on above: Result Comment: This test is not yet approved or cleared by the [place] FDA. When there are no FDA-approved or cleared tests available, and other criteria are met, FDA can make tests available under an emergency access mechanism called an Emergency Use Authorization (EUA). The EUA for this test is supported by the Labeling Strategist of Health and Human Service's (HHS's) declaration [...] longer be used). Performed By: #### C [facility] #### [facility] [address] [place] [address] Judi Alberts COVID-19 PCRon 07-14-2020 SARS-CoV-2 (COVID-19) RNA JEWEL+probe Ql (Unsp spec) Not detected Normal Not Detected [facility] Comment on above: Result Comment: This nucleic acid amplification test was developed and its performance characteristics determined by [employer]. Nucleic acid amplification tests include PCR and [...] assay. Performed By: #### C VDPCR #### [facility] [address] [place], [place] [address] Judi Alberts Encounters Encounter Date Encounter Type Care Provider Facility Start: 03-29-2023 End: 03-30-2023 ambulatory Giuliano SWIFT Facility:[facility] Start: 05-17-[address] SHOSHANA TAVERA Facility :[facility] Start: 04-03-2021 Encounter for genera l adult medical examination without abnormal findings DR SHOSHANA TAVERA [facility] Start: 03-24-2021 End: 03-25-[address] SHOSHANA TAVERA Facility:[facility] Start: 03-24-2021 End: 03-25-2021 Encounter for general adult medical examination without abnormal findings DR SHOSHANA TAVERA Facility:[facility] Start: 09-23-2020 End: 09-23-[address] SHOSHANA TAVERA Facility:[facility] Start: 07-13-2020 End: 07-14-[address] SHOSHANA TAVERA Facility:[facility] Start: 06-05-[address] SHOSHANA TAVERA Facility :[facility] Start: 10-25-2017 End: 10-26-2017 Ambulatory DEFAULT PHYSICIAN Facility:[facility] Payers Date Payer Category Payer Unknown [id number] 11.01.83 [id number] 1970 Unknown [id number] 11.01.83 [id number] 1970 Unknown [id number] 1970 Unknown [id number] 11.01. [id number] 1970 Unknown [id number] 1958 Private Health Insurance [id number] Self-pay [id number] Unknown Summary Purpose Family History No Family History Records FoundNo Family History Records FoundNo Family History Records Found Advance Directives No Advanced Directives Records FoundNo Advanced Directives Records FoundNo Advanced Directives Records Found Additional Source Comments INFORMATION SOURCE (unrecogn ized section and content) DATE CREATED AUTHOR 03/10/2018 [facility] DATE CREATED AUTHOR AUTHOR'S ORGANIZ ATION 04/04/[address] [facility] DATE CREATED AUTHOR AUTHOR'S ORGANIZ ATION 03/30/2023 [facility] FOR RECORDS PERTAINING TO PATIENTS WHO ARE [...] BE BASED ON THE PRIMARY CLINICAL RECORDS. [facility] [employer] [facility]. provides no warranty or guarantee of the accuracy or completeness of information in this document.
[2023-10-04 07:10] LABS: Basophils Percent Auto 0.4 % (0.2-2.0); Eosinophils Absolute Auto 0.1 10^3/uL (0.0-0.7); Eosinophils Percent Auto 0.9 % (0.9-7.0); Hematocrit 47.4 % (36.0-48.0); Hemoglobin 15.5 g/dL (12.0-16.0); Immature Granulocytes Abs Auto 0.03 10^3/uL (0.00-0.03); Immature Granulocytes Pct Auto 0.3 % (0.0-0.5); Lymphocytes Absolute Auto 2.8 10^3/uL (1.2-3.8); Lymphocytes Percent Auto 29.4 % (20.5-60.0); Mean Corpuscular HGB Conc 32.7 g/dL (29.9-35.2); Mean Corpuscular Hemoglobin 29.6 pg (26.7-34.0); Mean Corpuscular Volume 90.5 fL (81.0-99.0); Mean Platelet Volume 10.8 fL (9.5-13.5); Monocytes Absolute Auto 0.8 10^3/uL (0.3-0.8); Monocytes Percent Auto 8.4 % (1.7-12.0); Neutrophils Absolute Auto 5.7 10^3/uL (1.4-6.5); Neutrophils Percent Auto 60.6 % (43.0-75.0); Platelet Count 298 10^3/uL (150-450); Red Blood Count 5.24 10^6/uL (4.20-5.40); Red Cell Distribution Width 13.3 % (11.0-15.0); White Blood Count 9.4 10^3/uL (4.0-11.0)
[2023-10-04 07:49] LABS: Estimated Average Glucose 111 mg/dL; Glycohemoglobin A1C 5.5 % (4.5-6.2)
[2023-10-04 08:04] LABS: Alanine Aminotransferase 14 U/L (14-59); Albumin Globulin Ratio 0.9; Albumin Level 3.5 g/dL (3.4-5.0); Alkaline Phosphatase 81 U/L (46-116); Anion Gap 12.5; Aspartate Amino Transferase 11 U/L (15-37); BUN Creatinine Ratio 26.4; Bilirubin Total 0.4 mg/dL (0.2-1.0); Calcium 9.2 mg/dL (8.5-10.1); Chloride 104 mmol/L (98-107); Chol HDL Ratio 4.4; Cholesterol 242 mg/dL (<=200); Estimated GFR (African America >60 (>=60); Estimated GFR (Non-African Ame >60 (>=60); Free T3 3.16 pg/mL (2.18-3.98); Globulin 3.9 g/dL; Glucose 92 mg/dL (74-106); HDL Cholesterol 55 mg/dL (40-60); Potassium 4.5 mmol/L (3.5-5.1); Sodium 140 mmol/L (136-145); Total Protein 7.4 g/dL (6.4-8.2); Triglycerides 127 mg/dL (<=150); VLDL CHOLESTEROL 25.4 mg/dL
[2023-10-06 10:07] LABS: Insulin 12.9 uIU/mL (2.6-24.9)
== END 2023-10-04 06:54 | disposition home or self-care (01) ==
LOC: LAB 06:55
PROVIDERS: PCP Family Medicine; Visit Provider Family Medicine
DX: R20.2 Paresthesia of skin (principal); G47.00 Insomnia, unspecified; M79.606 Pain in leg, unspecified; E78.5 Hyperlipidemia, unspecified; R73.09 Other abnormal glucose; Z12.12 Encounter for screening for malignant neoplasm of rectum; D64.9 Anemia, unspecified; E55.9 Vitamin D deficiency, unspecified
CPT/HCPCS: 36415; 80053; 80061; 82306; 83036; 83525; 83540; 84436; 84443; 84481; 85025

== ENCOUNTER 2023-10-24 09:23 | Outpatient (OUT) | payer MEDICAID, SELFPAY ==
--- OUTSIDE RECORDS SUMMARY | 2023-10-24 09:28 | XMS_ITS | CCD ---
Author Name Unknown Address [address] [place] [address] Organization [facility] Care Team Providers Care Detective Private Eye Name Role Phone PHYSICIAN, DEFAULT Unavailable Unavailable [...] (2 sources) Codeine Drug Allergy 04-08-2013 [facility] Repository Problems Active Problems Problem Classification Problem [...] Reference Range Guru itmuna Consenton 03-29-2023 Consent [id number] #[id number]:127 Normal [facility] Registrationon 03-29-2023 Registration [id number]:127 Normal [facility] FSHon 03-25-2021 FSH 29.0 mIU/mL Normal [facility] Comment on above: Result Comment: Adul t Female: Follicular phase 3.5 - 12.5 Ovulation phase 4.7 - 21.5 Luteal phase 1.7 - 7.7 Postmenopausal 25.8 - 134.8 Performed By: #### L [facility] #### [facility] [address] [place], [place] [id number] Judi Lexus INSULINon 03-25-2021 Insulin 7.9 uIU/mL Normal 2.6-24.9 [facility] Comment on above: Performed By: #### C BC #### [facility] [address] [place] [address] Judi Lexus CBC AUTO DIFFon 03-24-2021 BASO # 0.0 103/ul Normal 0.0-0.1 [facility] Comment on above: Performed By: #### C BC #### [facility] [address] [place], [place] [id number] Judi Lexus Basophils/100 WBC (Bld) 0.4 % Normal 0.2-2.0 [facility] Comment on above: Performed By: #### C BC #### [facility] [address] [place], [place] [address] Judi Lexus EO # 0.1 103/ul Normal 0.0-0.7 [facility] Comment on above: Performed By: #### C BC #### [facility] [address] [place], [place] [address] Judi Lexus Eosinophils/100 WBC (Bld) 1.1 % Normal 0.9-7.0 [facility] Comment on above: Performed By: #### C BC #### [facility] [address] [address] Judi Lexus Erythrocyte distribution width (RBC) [Ratio] 13.1 % Normal 11.0-15.0 [facility] Comment on above: Performed By: #### C BC #### [facility] [address] [place] [address] Judi Lexus Hematocrit (Bld) [Volume fraction] 44.1 % Normal 36.0-48.0 [facility] Comment on above: Performed By: #### C BC #### [facility] [address] [place] [address] Judi Lexus Hemoglobin (Bld) [Mass/Vol] 14.9 g/dL Normal 12.0-16.0 [facility] Comment on above: Performed By: #### C BC #### [facility] [address] [place] [address] Judi Lexus IG # 0.01 10e3/ul Normal 0.00-0.03 [facility] Comment on above: Performed By: #### C BC #### [facility] [address] [place] [address] Judi Lexus IG % 0.1 % Normal 0.0-0.5 [facility] Comment on above: Performed By: #### C BC #### [facility] [address] [place] [address] Judi Lexus LYMPH # 1.7 103/ul Normal 1.2-3.8 [facility] Comment on above: Performed By: #### C BC #### [facility] [address] [place] [address] Judi Lexus Lymphocytes/100 WBC (Bld) 22.1 % Normal 20.5-60.0 [facility] Comment on above: Performed By: #### C BC #### [facility] [address] [place] [address] Judi Lexus MANUAL DIFF REQ NO Normal [facility] Comment on above: Performed By: #### C BC #### [facility] [address] [id number] Judi Alberts MCH (RBC) [Entitic mass] 30.0 pg Normal 26.7-34.0 [facility] Comment on above: Performed By: #### C BC #### [facility] [address] [place], [place] [address] Judi Alberts MCHC (RBC) [Mass/Vol] 33.8 g/dL Normal 29.9-35.2 [facility] Comment on above: Performed By: #### C BC #### [facility] [address] [place], [place] [address] Judi Alberts MCV (RBC) [Entitic vol] 88.7 fL Normal 81.0-99.0 [facility] Comment on above: Performed By: #### C BC #### [facility] [address] [place] [address] Judi Alberts MONO # 0.6 103/ul Normal 0.3-0.8 [facility] Comment on above: Performed By: #### C BC #### [facility] [address] [place], [place] [address] Judi Alberts Monocytes/100 WBC (Bld) 8.3 % Normal 1.7-12.0 [facility] Comment on above: Performed By: #### C BC #### [facility] [address] [place] [address] Judi Alberts NEUT # 5.1 103/ul Normal 1.4-6.5 [facility] Comment on above: Performed By: #### C BC #### [facility] [address] [place], [place] [address] Judi Lexus Neutrophils/100 WBC (Bld) 68.0 % Normal 43.0-75.0 [facility] Comment on above: Performed By: #### C BC #### [facility] [address] [place], [place] [address] Judibeckie Alberts Platelet mean volume (Bld) [Entitic vol] 10.3 fL Normal 9.5-13.5 [facility] Comment on above: Performed By: #### C BC #### [facility] [address] [place], [place] [address] Judi Alberts PLT 270 103/ul Normal 150-450 [facility] Comment on above: Performed By: #### C BC #### [facility] [address] [place], [place] [address] Judi Alberts RBC 4.97 106/ul Normal 4.20-5.40 [facility] Comment on above: Performed By: #### C BC #### [facility] [address] [place], [place] [address] Judi Hartmanen WBC 7.5 103/ul Normal 4.0-11.0 [facility] Comment on above: Performed By: #### C BC #### [facility] [address] [place], [place] [address] Judi Alberts FREE THYROXINE INDEX T7on FTI 3.[address] [facility] Comment on above: Performed By: #### C MP, LIPID, TSH, T7 #### [facility] [address] [place] [address] Judi Alberts T3U 35.0 % Normal 23.5-40.5 [facility] Comment on above: Performed By: #### C MP, LIPID, TSH, T7 #### [facility] [address] [place], [place] [address] Judi Alberts T4 [Mass/Vol] 9.00 ug/dL Normal 5.53-11.00 [facility] Comment on above: Performed By: #### C MP, LIPID, TSH, T7 #### [facility] [address] [place], [place] [address] Judi Alberts GLYCOHEMOGLOBIN A1Con 2020 ADA RECOMMENDATION ADA THERAPEUTIC TARGET 6.0 - 7.0 ACTION SUGGESTED > 7.[address] [facility] Comment on above: Performed By: #### A 1C #### [facility] [address] [place], [place] [address] Judi Alberts Glucose [Mass/Vol] 105 mg/dL Normal [facility] Comment on above: Performed By: #### A 1C #### [facility] [address] [place], [place] [address] Judi Alberts HbA1c (Bld) [Mass fraction] 5.3 % Normal <=6.0 [facility] Comment on above: Performed By: #### A 1C #### [facility] [address] [place], [place] [address] Judi Alberts IRONon 03-24-2021 Iron [Mass/Vol] 36.0 ug/dL Critically low 37.0-170.0 [facility] Comment on above: Performed By: #### I SUZY #### [facility] [address] [address] Judi Alberts LIPID PROFILEon 03-24-2021 CHOL-HDL RATIO NORM SEE BELOW Normal [facility] Comment on above: Result Comment: 3.3 - 4.4 LOW RISK 4.4 - 7.1 AVERAGE RISK 7.1 - 11.0 MODERATE RISK >11.0 HIGH RISK Performed By: #### C MP, LIPID, TSH, T7 #### [facility] [address] [place], [place] [address] Judi Lexus Cholesterol [Mass/Vol] 226 mg/dL Critically high <=200 [facility] Comment on above: Performed By: #### C MP, LIPID, TSH, T7 #### [facility] [address] [address] Judi Lexus Cholesterol in HDL [Mass/Vol] 55 mg/dL Normal [facility] Comment on above: Performed By: #### C MP, LIPID, TSH, T7 #### [facility] [address] [address] Judi Lexus Cholesterol in LDL [Mass/Vol] 161.6 mg/dL Normal [facility] Comment on above: Performed By: #### C MP, LIPID, TSH, T7 #### [facility] [address] [place], [place] [address] Judi Lexus Cholesterol.total/Cho lesterol in HDL [Mass ratio] 4.1 {ratio} Normal [facility] Comment on above: Performed By: #### C MP, LIPID, TSH, T7 #### [facility] [address] [place], [place] [address] Judi Lexus HDL NORMAL > or = 60 mg/dl - LOW CARDIOVASCULAR RISK <40 mg/dl - HIGH CARDIOVASCULAR RISK Normal [facility] Comment on above: Performed By: #### C MP, LIPID, TSH, T7 #### [facility] [address] [place], [place] [address] Judi Lexus LDL CALC NORMAL SEE BELOW Normal [facility] Comment on above: Result Comment: <100 mg/dl OPTIMAL 100 - 129 mg/dl NEAR OR ABOVE OPTIMAL 130 - 159 mg/dl BORDERLINE HIGH 160 - 189 mg/dl HIGH >190 mg/dl VERY HIGH Performed By: #### C MP, LIPID, TSH, T7 #### [facility] [address] [place], [place] [address] Judi Lexus Triglyceride [Mass/Vol] 47 mg/dL Normal <=150 [facility] Comment on above: Performed By: #### C MP, LIPID, TSH, T7 #### [facility] [address] [place], [place] [address] Judi Lexus VLDL CALC 9.4 mg/dL Normal [facility] Comment on above: Performed By: #### C MP, LIPID, TSH, T7 #### [facility] [address] [place], [place] [address] Judibeckie Hartmanen PROF 14(COMP METB)on 021 Albumin [Mass/Vol] 3.4 g/dL Critically low 3.5-5.0 [facility] Comment on above: Performed By: #### C MP, LIPID, TSH, T7 #### [facility] [address] [place] [address] Judi Lexus Albumin/Globulin [Mass ratio] 0.9 {ratio} Normal [facility] Comment on above: Performed By: #### C MP, LIPID, TSH, T7 #### [facility] [address] [place], [place] [address] Judi Lexus ALP [Catalytic activity/Vol] 95 U/L Normal 38-126 [facility] Comment on above: Performed By: #### C MP, LIPID, TSH, T7 #### [facility] [address] [place], [place] [address] Judi Lexus ALT [Catalytic activity/Vol] 17 U/L Normal 9-52 [facility] Comment on above: Performed By: #### C MP, LIPID, TSH, T7 #### [facility] [address] [address] Judi Lexus Anion gap [Moles/Vol] 12.0 mmol/L Normal [facility] Comment on above: Performed By: #### C MP, LIPID, TSH, T7 #### [facility] [address] [address] Judi Lexus AST [Catalytic activity/Vol] 14 U/L Normal 14-36 [facility] Comment on above: Performed By: #### C MP, LIPID, TSH, T7 #### [facility] [address] [place] [address] Judi Lexus Bilirubin [Mass/Vol] 0.3 mg/dL Normal 0.2-1.3 [facility] Comment on above: Performed By: #### C MP, LIPID, TSH, T7 #### [facility] [address] [place] [address] Judi Lexus Calcium [Mass/Vol] 9.0 mg/dL Normal 8.4-10.2 [facility] Comment on above: Performed By: #### C MP, LIPID, TSH, T7 #### [facility] [address] [place] [address] Judi Lexus Chloride [Moles/Vol] 105 mmol/L Normal 98-107 [facility] Comment on above: Performed By: #### C MP, LIPID, TSH, T7 #### [facility] [address] [place] [address] Judi Lexus CO2 [Moles/Vol] 26.3 mmol/L Normal 22.0-30.0 [facility] Comment on above: Performed By: #### C MP, LIPID, TSH, T7 #### [facility] [address] [place] [address] Judi Lexus Creatinine [Mass/Vol] 0.89 mg/dL Normal 0.52-1.04 [facility] Comment on above: Performed By: #### C MP, LIPID, TSH, T7 #### [facility] [address] [place], [place] [address] Judi Lexus EGFR-AF SOUTH AFRICAN >60 Normal >=60 [facility] Comment on above: Performed By: #### C MP, LIPID, TSH, T7 #### [facility] [address] [address] Judi Lexus EGFR-NON AF SOUTH AFRICAN >60 Normal >=60 [facility] Comment on above: Performed By: #### C MP, LIPID, TSH, T7 #### [facility] [address] [address] Judi Lexus Globulin (S) [Mass/Vol] 3.6 g/dL Normal [facility] Comment on above: Performed By: #### C MP, LIPID, TSH, T7 #### [facility] [address] [address] Judi Lexus Glucose [Mass/Vol] 98 mg/dL Normal 74-106 [facility] Comment on above: Performed By: #### C MP, LIPID, TSH, T7 #### [facility] [address] [place] [address] Judi Lexus Potassium [Moles/Vol] 4.3 mmol/L Normal 3.4-5.0 [facility] Comment on above: Performed By: #### C MP, LIPID, TSH, T7 #### [facility] [address] [place] [address] Judi Lexus Protein [Mass/Vol] 7.0 g/dL Normal 6.1-8.2 [facility] Comment on above: Performed By: #### C MP, LIPID, TSH, T7 #### [facility] [address] [place] [address] Judi Lexus Sodium [Moles/Vol] 139 mmol/L Normal 137-145 [facility] Comment on above: Performed By: #### C MP, LIPID, TSH, T7 #### [facility] [address] [place] [address] Judi Lexus Urea nitrogen [Mass/Vol] 19.0 mg/dL Critically high 7.0-17.0 [facility] Comment on above: Performed By: #### C MP, LIPID, TSH, T7 #### [facility] [address] [place], [place] [address] Judi Alberts Urea nitrogen/Creatinine [Mass ratio] 21.3 mg/mg Normal [facility] Comment on above: Performed By: #### C MP, LIPID, TSH, T7 #### [facility] [address] [place], [place] [address] Judi Alberts TSHon 03-24-2021 TSH 1.176 uIU/mL Normal 0.470-4.680 [facility] Comment on above: Performed By: #### C MP, LIPID, TSH, T7 #### [facility] [address] [address] Judi Alberts TSH RANGE SEE BELOW Normal [facility] Comment on above: Result Comment: <0.3 4 UIU/ml HYPERTHYROID 0.34-5.60 UIU/ml EUTHYROID >5.60 UIU/ml HYPOTHYROID Performed By: #### C MP, LIPID, TSH, T7 #### [facility] [address] [address] Judi Alberts Covid-19 PCR (CVDTBH)on EUA Statement SEE BELOW Normal [facility] Comment on above: Result Comment: This test is not yet approved or cleared by the [place] FDA. When there are no FDA-approved or cleared tests available, and other criteria are met, FDA can make tests available under an emergency access mechanism called an Emergency Use Authorization (EUA). The EUA for this test is supported by the Public Administration Teacher of Health and Human Service?s (HHS?s) declaration [...] SARS-CoV-2. Performed By: #### C VDTBH #### [facility] [address] [place] [address] Judi Alberts SARS-CoV-2 (COVID-19) RNA JEWEL+probe Ql (Unsp spec) Not detected Normal NOT DETECTED [facility] Comment on above: Result Comment: This test is not yet approved or cleared by the [place] FDA. When there are no FDA-approved or cleared tests available, and other criteria are met, FDA can make tests available under an emergency access mechanism called an Emergency Use Authorization (EUA). The EUA for this test is supported by the Public Administration Teacher of Health and Human Service's (HHS's) declaration [...] longer be used). Performed By: #### C [facility] #### [facility] [address] [place] [address] Judi Alberts COVID-19 PCRon 07-14-2020 SARS-CoV-2 (COVID-19) RNA JEWEL+probe Ql (Unsp spec) Not detected Normal Not Detected [facility] Comment on above: Result Comment: This nucleic acid amplification test was developed and its performance characteristics determined by [facility]. Nucleic acid amplification tests include PCR and [...] assay. Performed By: #### C VDPCR #### [facility] [address] [place], [place] [address] Judi Alberts Encounters Encounter Date Encounter Type Care Provider Facility Start: 03-29-2023 End: 03-30-2023 ambulatory Giuliano SWIFT Facility:[facility] Start: 05-17-[address] SHOSHANA TAVERA Facility :[facility] Start: 04-03-2021 Encounter for genera l adult medical examination without abnormal findings DR SHOSHANA TAVERA [facility] Start: 03-24-2021 End: 03-25-[address] SHOSHANA TAVERA Facility:[facility] Start: 03-24-2021 End: 03-25-2021 Encounter for general adult medical examination without abnormal findings DR SHOSHANA TAVERA Facility:[facility] Start: 09-23-2020 End: 09-23-[address] SHOSHANA TAVERA Facility:[facility] Start: 07-13-2020 End: 07-14-[address] SHOSHANA TAVERA Facility:[facility] Start: 06-05-[address] SHOSHANA TAVERA Facility :[facility] Start: 10-25-2017 End: 10-26-2017 Ambulatory DEFAULT PHYSICIAN Facility:[facility] Payers Date Payer Category Payer Unknown [id number] 11.01.83 [id number] 1970 Unknown [id number] 11.01.83 [id number] 1970 Unknown [id number] 1970 Unknown [id number]. [id number] 1970 Unknown [id number] 1958 Private Health Insurance [id number] Self-pay [id number] Unknown Summary Purpose Family History No Family History Records FoundNo Family History Records FoundNo Family History Records Found Advance Directives No Advanced Directives Records FoundNo Advanced Directives Records FoundNo Advanced Directives Records Found Additional Source Comments INFORMATION SOURCE (unrecogn ized section and content) DATE CREATED AUTHOR 03/10/2018 [facility] DATE CREATED AUTHOR AUTHOR'S ORGANIZ ATION 04/04/2021 [facility] DATE CREATED AUTHOR AUTHOR'S ORGANIZ ATION 03/30/2023 [facility] FOR RECORDS PERTAINING TO PATIENTS WHO [...] BE BASED ON THE PRIMARY CLINICAL RECORDS. [facility] [employer] [facility]. provides no warranty or guarantee of the accuracy or completeness of information in this document.
--- NOTE | 2023-10-24 10:15 | CA_ITS ---
The [facility] Test Date: 2023-10-24 Pat Name: TIGRE MENDOZA Department: Room: - Gender: Female [employer]: : 1970 Requested By: SHOSHANA TAVERA Order Number: [id number] Reading MD: JIMMY TIDWELL Interpretive Statements Monophasic doppler waveforms. PVR waveforms with normal upstroke, amplitude and dicrotic notch Right: - no significant pressure gradient between cuffs - normal ESTRELLA Left: - borderline significant pressure gradient between the calf and DP cuff. - normal ESTRELLA Impression: - normal arterial evaluation of the lower extremities without hemodynamic impairment of the B/L lower extremities at rest (right ESTRELLA 1.03, left ESTRELLA 0.98) Electronically Signed On 10-25-2023 6:57:26 EST by JIMMY TIDWELL
== END 2023-10-24 09:24 | disposition home or self-care (01) ==
LOC: CARD 09:24
PROVIDERS: PCP Family Medicine; Visit Provider Family Medicine
DX: R20.8 Other disturbances of skin sensation (principal); M79.606 Pain in leg, unspecified
CPT/HCPCS: 93923

== ENCOUNTER 2024-04-27 11:38 | Outpatient (OUT) | payer MEDICAID, SELFPAY ==
--- NOTE | 2024-04-27 11:45 | XR_ITS ---
The [address] [address] Patient Name: TIGRE MENDOZA MRN: [id number] date: 1970 Sex: F Assigned Patient Location: LAB Current Patient Location: Accession/Order Number: [id number] Exam Date: 04/27/2024 12:13 Report Date: 04/29/2024 06:54 At the request of: SHOSHANA TAVERA Procedure: XR cervical spine 2-3V EXAMINATION: XR cervical spine 2-3V HISTORY: Migraine Unspecified, Cervical Radiculopathy M54.12 COMPARISON: No relevant comparison available. FINDINGS: BONES: Reversal normal lordotic curvature and mild left convex curvature. Grade 1 retrolisthesis of C4-C5 and C5 on C6. No significant facet arthropathy. DISC SPACES: Moderate narrowing C4-C5, C5-C6. PARASPINOUS: Negative. No paraspinous abnormality is seen. OTHER: Negative. XR/XR cervical spine 2-3V IMPRESSION: 1. Grade 1 retrolisthesis and moderate-marked degenerative disc disease C4-C5 and C5-C6. Electronically authenticated by: EDSON CAN Date: 04/29/2024 06:54
== END 2024-04-27 11:39 | disposition home or self-care (01) ==
LOC: LAB 11:39
PROVIDERS: PCP Family Medicine; Visit Provider Family Medicine
DX: G43.909 Migraine, unspecified, not intractable, without status migrainosus (principal); M54.12 Radiculopathy, cervical region; M50.30 Other cervical disc degeneration, unspecified cervical region
CPT/HCPCS: 72040

== ENCOUNTER 2024-05-12 07:20 | Outpatient (OUT) | payer MEDICAID, SELFPAY ==
--- NOTE | 2024-05-12 | NM_ITS ---
Patient Name: TIGRE MENDOZA MR#: [id number] : 1970 Exam Date: 05/12/2024 Ordering Doctor: DR Juancarlos Sheth . RADIOLOGY REPORT PROCEDURE: NM JENNI PERF SPECT REST STR COMPARISON: None. INDICATIONS: CHEST PAIN, OTHER ABNORMALITIES OF HEART BEAT, TACHYCARDIA TECHNIQUE: Exam Description: Stress/Rest one day protocol gated SPECT Rest Imagin.2 mCi Tc-99m Cardiolite IV on 05/12/2024 Stress Imaging 30.3 mCi Tc-99m Cardiolite IV on Exercise Protocol: 0.4 mg Lexiscan given IV Heart Rate (bpm): Rest: 51 Max: 134 PMHR: 80 Blood Pressure: Rest: 126/80 Max: 158/84 Symptoms: chest presssure, shortness of breath Rest and peak stress ECG findings were abnormal and the exercise portion of the study was abnormal per attending physician Dr. Montano due to EKG changes. For more details please see separate cardiac stress test report. FINDINGS: QUALITY OF STUDY: Excellent. PERFUSION DEFECT: None. LOCATION: N/A SIZE: N/A. SEVERITY: N/A. TYPE: N/A. WALL MOTION: Normal. LV SIZE: Normal. 50 mL. TID / TCD: None; 0.7 LVEF: Normal. Calculated EF 81%. SUMMARY: Myocardial perfusion imaging study is NORMAL. CONCLUSION: 1. Normal myocardial perfusion scan, No reversible ischemia 2. Abnormal exercise test secondary to EKG changes Dictated by: Eddie Macias MD on 05/13/2024 at 12:27 Approved by: Eddie Macias MD on 05/13/2024 at 12:29
--- NOTE | 2024-05-12 | XR_ITS ---
The [address] [address] Patient Name: TIGRE MENDOZA MRN: [id number] date: 1970 Sex: F Assigned Patient Location: [place] Current Patient Location: [place] Accession/Order Number: [id number] Exam Date: 05/12/2024 10:35 Report Date: 05/12/2024 12:50 At the request of: SHOSHANA TAVERA Procedure: XR chest 2V EXAM: XR chest 2V REASON FOR EXAM: CHEST PAIN. TECHNIQUE: Two-view chest. COMPARISON: 07/17/2023. FINDINGS: Lungs are clear. Heart size is normal. No pleural effusion or pneumothorax. Osseous structures are without acute abnormality. XR/XR chest 2V IMPRESSION: No active disease in the chest Electronically authenticated by: FADY HART Date: 05/12/2024 12:50
--- NOTE | 2024-05-12 | MR_ITS ---
The [address] [address] Patient Name: TIGRE MENDOZA MRN: [id number] date: 1970 Sex: F [place]igned Patient Location: [place] Current [place] Location[place] Accession/Order Number: [id number] Exam Date: 05/12/2024 07:27 Report Date: 05/12/2024 12:50 At the request of: SHOSHANA TAVERA Procedure: MR cervical spine wo con EXAM: MR cervical spine wo con REASON FOR EXAM: MIGRAINE, UNSPECIFIED, CERVICAL RADICULOPATHY. TECHNIQUE: Multiplanar, multisequence imaging of the cervical spine was performed without contrast COMPARISON: Radiographs 04/27/2024. FINDINGS: Study mildly degraded by motion large [id number]. Limited evaluation the posterior fossa is unremarkable. Mild low-lying cerebellar tonsils. The visualized spinal cord demonstrates normal caliber and signal. Overall straightening normal cervical lordosis. Vertebral body heights and facet alignments are maintained. Modic type changes are present at the C4-C5 and C5-C6 levels. No acute or aggressive osseous abnormality is evident. Limited evaluation of the paravertebral soft tissues is unremarkable. C2-C3: No focal disc herniation identified. No spinal canal or neural foraminal stenosis. C3-C4: Minimal broad-based disc bulge without spinal canal or neural foraminal stenosis. C4-C5: Mild broad-based disc bulge without spinal canal stenosis. Moderate bilateral neural foraminal stenosis secondary to disc osteophyte complex, uncovertebral degeneration and facet arthropathy. C5-C6: Broad-based disc bulge with mild spinal canal stenosis. Moderate bilateral neural foraminal stenosis, left greater than right secondary to disc osteophyte complex, uncovertebral degeneration and facet arthropathy. C6-C7: Mild broad-based disc bulge without spinal canal stenosis. Mild left neural foraminal stenosis secondary to uncovertebral degeneration and facet arthropathy. C7-T1: No focal disc herniation identified. No spinal canal or neural foraminal stenosis. Limited evaluation of the upper thoracic spine is without focal large disc herniation, spinal canal or neural foraminal stenosis. MR/MR cervical spine wo con IMPRESSION: 1. Mild to moderate multilevel degenerative disc disease and facet arthropathy, most notable at the C4-C5 and C5-C6 levels as described above. Electronically authenticated by: FADY HART Date: 05/12/2024 12:50
--- OUTSIDE RECORDS SUMMARY | 2024-05-12 07:22 | XMS_ITS | CCD ---
Author Organization [facility] Care Team Providers Care Telemarketing Manager Name Role Phone PHYSICIAN, DEFAULT Unavailable Unavailable PHYSICIAN, DEFAULT Unavailable Unavailable AYSE, DR ANNA Admitting Unavailable HOY, DR ANNA [...] (2 sources) Codeine Drug Allergy 04-08-2013 The [facility] Repository Problems Active Problems Problem Classification Problem [...] Test Name Value Interpretation Reference Range Guru ity Consenton 03-29-2023 Consent [id number] #1.00CD:127 Normal [facility] Registrationon 03-29-2023 Registration [id number]#1.00CD:127 Normal [facility] FSHon 03-25-2021 FSH 29.0 mIU/mL Normal [facility] Comment on above: Result Comment: Adul t Female: Follicular phase 3.5 - 12.5 Ovulation phase 4.7 - 21.5 Luteal phase 1.7 - 7.7 Postmenopausal 25.8 - 134.8 Performed By: #### L BCFS #### [facility] [address] [place] [address] Judi Lexus INSULINon 03-25-2021 Insulin 7.9 uIU/mL Normal 2.6-24.9 [facility] Comment on above: Performed By: #### C BC #### [facility] [address] [place] [address] [employer]i Lex[employer] CBC AUTO DIFFon 03-24-2021 BASO # 0.0 103/ul Normal 0.0-0.1 [facility] Comment on above: Performed By: #### C BC #### [facility] [address] [place], [place] [id number] Judi Lexus Basophils/100 WBC (Bld) 0.4 % Normal 0.2-2.0 [facility] Comment on above: Performed By: #### C BC #### [facility] [address] [place] [address] Judi Lexus EO # 0.1 103/ul Normal 0.0-0.7 [facility] Comment on above: Performed By: #### C BC #### [facility] [address] [place] [address] Judi Lexus Eosinophils/100 WBC (Bld) 1.1 % Normal 0.9-7.0 [facility] Comment on above: Performed By: #### C BC #### [facility] [address] [place], [place] [id number] Judi Lexus Erythrocyte distribution width (RBC) [Ratio] 13.1 % Normal 11.0-15.0 [facility] Comment on above: Performed By: #### C BC #### [facility] [address] [place] [address] Judi Lexus Hematocrit (Bld) [Volume fraction] 44.1 % Normal 36.0-48.0 [facility] Comment on above: Performed By: #### C BC #### [facility] [address] [place] [address] Judi Lexus Hemoglobin (Bld) [Mass/Vol] 14.9 g/dL Normal 12.0-16.0 [facility] Comment on above: Performed By: #### C BC #### [facility] [address] [place] [address] Judi Lexus IG # 0.01 10e3/ul Normal 0.00-0.03 [facility] Comment on above: Performed By: #### C BC #### [facility] [address] [place] [address] Judi Lexus IG % 0.1 % Normal 0.0-0.5 [facility] Comment on above: Performed By: #### C BC #### [facility] [address] [place] [address] Judi Lexus LYMPH # 1.7 103/ul Normal 1.2-3.8 [facility] Comment on above: Performed By: #### C BC #### [facility] [address] [place] [address] Judi Lexus Lymphocytes/100 WBC (Bld) 22.1 % Normal 20.5-60.0 [facility] Comment on above: Performed By: #### C BC #### [facility] [address] [place] [address] [employer] MANUAL DIFF REQ NO Normal [facility] Comment on above: Performed By: #### C BC #### [facility] [address] [place] [address] Judi Lexus MCH (RBC) [Entitic mass] 30.0 pg Normal 26.7-34.0 [facility] Comment on above: Performed By: #### C BC #### [facility] [address] [place], [place] [id number] Judibeckie Alberts MCHC (RBC) [Mass/Vol] 33.8 g/dL Normal 29.9-35.2 [facility] Comment on above: Performed By: #### C BC #### [facility] [address] [place], [place] [id number] Judibeckie Alberts MCV (RBC) [Entitic vol] 88.7 fL Normal 81.0-99.0 [facility] Comment on above: Performed By: #### C BC #### [facility] [address] [place] [address] Judibeckie Alberts MONO # 0.6 103/ul Normal 0.3-0.8 [facility] Comment on above: Performed By: #### C BC #### [facility] [address] [place], [place] [id number] Judi Lexus Monocytes/100 WBC (Bld) 8.3 % Normal 1.7-12.0 [facility] Comment on above: Performed By: #### C BC #### [facility] [address] [place], [place] [address] Judibeckie Hartmanen NEUT # 5.1 103/ul Normal 1.4-6.5 [facility] Comment on above: Performed By: #### C BC #### [facility] [address] [place], [place] [address] Judi Lexus Neutrophils/100 WBC (Bld) 68.0 % Normal 43.0-75.0 [facility] Comment on above: Performed By: #### C BC #### [facility] [address] [place], [place] [id number] Judi Lexus Platelet mean volume (Bld) [Entitic vol] 10.3 fL Normal 9.5-13.5 [facility] Comment on above: Performed By: #### C BC #### [facility] [address] [place], [place] [address] Judi Lexus PLT 270 103/ul Normal 150-450 [facility] Comment on above: Performed By: #### C BC #### [facility] [address] [id number] Judi Lexus RBC 4.97 106/ul Normal 4.20-5.40 [facility] Comment on above: Performed By: #### C BC #### [facility] [address] [id number] Judi Lexus WBC 7.5 103/ul Normal 4.0-11.0 [facility] Comment on above: Performed By: #### C BC #### [facility] [address] [id number] Judi Lexus FREE THYROXINE INDEX T7on FTI 3.15 Normal [facility] Comment on above: Performed By: #### C MP, LIPID, TSH, T7 #### [facility] [address] [id number] Judi Lexus T3U 35.0 % Normal 23.5-40.5 [facility] Comment on above: Performed By: #### C MP, LIPID, TSH, T7 #### [facility] [address] [id number] Judi Lexus T4 [Mass/Vol] 9.00 ug/dL Normal 5.53-11.00 [facility] Comment on above: Performed By: #### C MP, LIPID, TSH, T7 #### [facility] [address], [place] [address] Judi Lexus GLYCOHEMOGLOBIN A1Con 2020 ADA RECOMMENDATION ADA THERAPEUTIC TARGET 6.0 - 7.0 ACTION SUGGESTED > 7.0 Normal [facility] Comment on above: Performed By: #### A 1C #### [facility] [address], [place] [address] Judi Lexus Glucose [Mass/Vol] 105 mg/dL Normal [facility] Comment on above: Performed By: #### A 1C #### [facility] [address] [id number] Judi Lexus HbA1c (Bld) [Mass fraction] 5.3 % Normal <=6.0 [facility] Comment on above: Performed By: #### A 1C #### [facility] [address], [place] [address] Judi Lexus IRONon 03-24-2021 Iron [Mass/Vol] 36.0 ug/dL Critically low 37.0-170.0 [facility] Comment on above: Performed By: #### I SUZY #### [facility] [address], [place] [address] Judi Lexus LIPID PROFILEon 03-24-2021 CHOL-HDL RATIO NORM SEE BELOW Normal [facility] Comment on above: Result Comment: 3.3 - 4.4 LOW RISK 4.4 - 7.1 AVERAGE RISK 7.1 - 11.0 MODERATE RISK >11.0 HIGH RISK Performed By: #### C MP, LIPID, TSH, T7 #### [facility] [address], [place] [address] Judi Lexus Cholesterol [Mass/Vol] 226 mg/dL Critically high <=200 [facility] Comment on above: Performed By: #### C MP, LIPID, TSH, T7 #### [facility] [address], [place] [address] Judi Lexus Cholesterol in HDL [Mass/Vol] 55 mg/dL Normal [facility] Comment on above: Performed By: #### C MP, LIPID, TSH, T7 #### [facility] [address], [place] [address] Judi Lxeus Cholesterol in LDL [Mass/Vol] 161.6 mg/dL Normal [facility] Comment on above: Performed By: #### C MP, LIPID, TSH, T7 #### [facility] [address], [place] [address] Judi Lexus Cholesterol.total/Cho lesterol in HDL [Mass ratio] 4.1 {ratio} Normal [facility] Comment on above: Performed By: #### C MP, LIPID, TSH, T7 #### [facility] [address] [place], [place] [address] Judi Lexus HDL NORMAL > or = 60 mg/dl - LOW CARDIOVASCULAR RISK <40 mg/dl - HIGH CARDIOVASCULAR RISK Normal [facility] Comment on above: Performed By: #### C MP, LIPID, TSH, T7 #### [facility] [address], [place] [address] Judi Lexus LDL CALC NORMAL SEE BELOW Normal [facility] Comment on above: Result Comment: <100 mg/dl OPTIMAL 100 - 129 mg/dl NEAR OR ABOVE OPTIMAL 130 - 159 mg/dl BORDERLINE HIGH 160 - 189 mg/dl HIGH >190 mg/dl VERY HIGH Performed By: #### C MP, LIPID, TSH, T7 #### [facility] [address] [id number] Judi Lexus Triglyceride [Mass/Vol] 47 mg/dL Normal <=150 [facility] Comment on above: Performed By: #### C MP, LIPID, TSH, T7 #### [facility] [address] [id number] Judi Lexus VLDL CALC 9.4 mg/dL Normal [facility] Comment on above: Performed By: #### C MP, LIPID, TSH, T7 #### [facility] [address] [id number] Judibeckie Alberts PROF 14(COMP METB)on 021 Albumin [Mass/Vol] 3.4 g/dL Critically low 3.5-5.0 [facility] Comment on above: Performed By: #### C MP, LIPID, TSH, T7 #### [facility] [address] [id number] Judi Lexus Albumin/Globulin [Mass ratio] 0.9 {ratio} Normal [facility] Comment on above: Performed By: #### C MP, LIPID, TSH, T7 #### [facility] [address] [id number] Judi Lexus ALP [Catalytic activity/Vol] 95 U/L Normal 38-126 [facility] Comment on above: Performed By: #### C MP, LIPID, TSH, T7 #### [facility] [address] [id number] Judi Lexus ALT [Catalytic activity/Vol] 17 U/L Normal 9-52 [facility] Comment on above: Performed By: #### C MP, LIPID, TSH, T7 #### [facility] [address], [place] [address] Judi Lexus Anion gap [Moles/Vol] 12.0 mmol/L Normal Th e [facility] Comment on above: Performed By: #### C MP, LIPID, TSH, T7 #### [facility] [address], [place] [address] Judi Lexus AST [Catalytic activity/Vol] 14 U/L Normal 14-36 [facility] Comment on above: Performed By: #### C MP, LIPID, TSH, T7 #### [facility] [address], [place] [address] Judi Lexus Bilirubin [Mass/Vol] 0.3 mg/dL Normal 0.2-1.3 [facility] Comment on above: Performed By: #### C MP, LIPID, TSH, T7 #### [facility] [address] [id number] Judi Lexus Calcium [Mass/Vol] 9.0 mg/dL Normal 8.4-10.2 [facility] Comment on above: Performed By: #### C MP, LIPID, TSH, T7 #### [facility] [address] [id number] Judi Lexus Chloride [Moles/Vol] 105 mmol/L Normal 98-107 [facility] Comment on above: Performed By: #### C MP, LIPID, TSH, T7 #### [facility] [address] [id number] Judi Lexus CO2 [Moles/Vol] 26.3 mmol/L Normal 22.0-30.0 [facility] Comment on above: Performed By: #### C MP, LIPID, TSH, T7 #### [facility] [address] [id number] Judi Lexus Creatinine [Mass/Vol] 0.89 mg/dL Normal 0.52-1.04 [facility] Comment on above: Performed By: #### C MP, LIPID, TSH, T7 #### [facility] [address] [place], [place] [address] Judi Lexus EGFR-AF CYMRAES >60 Normal >=60 [facility] Comment on above: Performed By: #### C MP, LIPID, TSH, T7 #### [facility] [address] [address] Judi Lexus EGFR-NON AF CYMRAES >60 Normal >=60 [facility] Comment on above: Performed By: #### C MP, LIPID, TSH, T7 #### [facility] [address] [address] Judi Lexus Globulin (S) [Mass/Vol] 3.6 g/dL Normal [facility] Comment on above: Performed By: #### C MP, LIPID, TSH, T7 #### [facility] [address] [place] [address] Judi Lexus Glucose [Mass/Vol] 98 mg/dL Normal 74-106 [facility] Comment on above: Performed By: #### C MP, LIPID, TSH, T7 #### [facility] [address] [place] [address] Judi Lexus Potassium [Moles/Vol] 4.3 mmol/L Normal 3.4-5.0 [facility] Comment on above: Performed By: #### C MP, LIPID, TSH, T7 #### [facility] [address] [place] [address] Jud[employer] Protein [Mass/Vol] 7.0 g/dL Normal 6.1-8.2 [facility] Comment on above: Performed By: #### C MP, LIPID, TSH, T7 #### [facility] [address] [place] [address] Judi Lexus Sodium [Moles/Vol] 139 mmol/L Normal 137-145 [facility] Comment on above: Performed By: #### C MP, LIPID, TSH, T7 #### [facility] [address] [place] [address] Judi Lexus Urea nitrogen [Mass/Vol] 19.0 mg/dL Critically high 7.0-17.0 [facility] Comment on above: Performed By: #### C MP, LIPID, TSH, T7 #### [facility] [address] [place] [address] Judi Alberts Urea nitrogen/Creatinine [Mass ratio] 21.3 mg/mg Normal [facility] Comment on above: Performed By: #### C MP, LIPID, TSH, T7 #### [facility] [address] [place] [address] Judi Alberts TSHon 03-24-2021 TSH 1.176 uIU/mL Normal 0.470-4.680 [facility] Comment on above: Performed By: #### C MP, LIPID, TSH, T7 #### [facility] [address] [address] Judi Alberts TSH RANGE SEE BELOW Normal [facility] Comment on above: Result Comment: <0.3 4 UIU/ml HYPERTHYROID 0.34-5.60 UIU/ml EUTHYROID >5.60 UIU/ml HYPOTHYROID Performed By: #### C MP, LIPID, TSH, T7 #### [facility] [address] [place] [address] Judi Alberts Covid-19 PCR (CVDTBH)on EUA Statement SEE BELOW Normal [facility] Comment on above: Result Comment: This test is not yet approved or cleared by the [place] FDA. When there are no FDA-approved or cleared tests available, and other criteria are met, FDA can make tests available under an emergency access mechanism called an Emergency Use Authorization (EUA). The EUA for this test is supported by the [employer] of Health and Human Service?s (HHS?s) declaration [...] SARS-CoV-2. Performed By: #### C VDTBH #### [facility] [address] [place] [address] Judi Alberts SARS-CoV-2 (COVID-19) RNA JEWEL+probe Ql (Unsp spec) Not detected Normal NOT DETECTED [facility] Comment on above: Result Comment: This test is not yet approved or cleared by the [place] FDA. When there are no FDA-approved or cleared tests available, and other criteria are met, FDA can make tests available under an emergency access mechanism called an Emergency Use Authorization (EUA). The EUA for this test is supported by the Fire Support Man of Health and Human Service's (HHS's) declaration [...] longer be used). Performed By: #### C [facility] #### [facility] [address] [place] [address] Judi Alberts COVID-19 PCRon 07-14-2020 SARS-CoV-2 (COVID-19) RNA JEWEL+probe Ql (Unsp spec) Not detected Normal Not Detected [facility] Comment on above: Result Comment: This nucleic acid amplification test was developed and its performance characteristics determined by [employer]. Nucleic acid amplification tests include PCR and [...] assay. Performed By: #### C VDPCR #### [facility] [address], [place] [address] Judi Alberts Encounters Encounter Date Encounter Type Care Provider Facility Start: 03-29-2023 End: 03-30-2023 ambulatory Giuliano SWIFT Facility:[facility] Start: 05-17-[address] SHOSHANA TAVERA Facility :[facility] Start: 04-03-2021 Encounter for genera l adult medical examination without abnormal findings DR SHOSHANA TAVERA [facility] Start: 03-24-2021 End: 03-25-[address] SHOSHANA TAVERA Facility:[facility] Start: 03-24-2021 End: 03-25-2021 Encounter for general adult medical examination without abnormal findings DR SHOSHANA TAVERA Facility:[facility] Start: 09-23-2020 End: 09-23-[address] SHOSHANA TAVERA Facility:[facility] Start: 07-13-2020 End: 07-14-[address] SHOSHANA TAVERA Facility:[facility] Start: 06-05-[address] SHOSHANA TAVERA Facility :[facility] Start: 10-25-2017 End: 10-26-2017 Ambulatory DEFAULT PHYSICIAN Facility:[facility] Payers Date Payer Category Payer Unknown [id number] 2.16.84 [id number] 1970 Unknown [id number] 2.16.84 [id number] 1970 Unknown [id number] 2.16.84 [id number] 1970 Unknown [id number] 2.16.84 [id number] 1970 Unknown [id number] 2.16.84 [id number] 1958 Private Health Insurance [id number] 1958 Self-pay [id number] Unknown Summary Purpose Family History No Family History Records FoundNo Family History Records FoundNo Family History Records Found Advance Directives No Advanced Directives Records FoundNo Advanced Directives Records FoundNo Advanced Directives Records Found Additional Source Comments INFORMATION SOURCE (unrecogn ized section and content) DATE CREATED AUTHOR 03/10/2018 The [facility] DATE CREATED AUTHOR AUTHOR'S ORGANIZ ATION 04/04/2021 [facility] DATE CREATED AUTHOR AUTHOR'S ORGANIZ ATION 03/30/2023 [facility] FOR RECORDS PERTAINING TO PATIENTS WHO ARE [...] BE BASED ON THE PRIMARY CLINICAL RECORDS. [employer] provides no warranty or guarantee of the accuracy or completeness of information in this document.
[2024-05-12] MEDS: AMINOPHYLLINE 250 MG/10 ML VIAL 50 MG IVP (10:04)
[2024-05-12] MEDS: REGADENOSON 0.4 MG/5 ML SYRINGE IV (10:07)
--- NOTE | 2024-05-12 10:17 | PC.NURSE ---
Nursing Note Cardiac Stress Test Reviewed: Medication, allergies and patient history reviewed. Stress Test: [ ] Patient tolerated stress test well. [x ] Patient unable to tolerate walking on treadmill. Switched to Lexiscan stress test. [ ] No chest pain noted per patient [ x] Chest pain that resolved prior to leaving stress lab. [ ] No dyspnea noted. [ x] Dyspnea that resolved prior to leaving stress lab. [ x] Patient left stress lab asymptomatic and hemodynamically stable. [ ] Patient taken to the Emergency Room due to non-resolving symptoms following stress test. [ ] Patient achieved target heart rate. [x] Patient unable to achieve target heart rate. [ x] Aminophylline administered as reversal agent to Lexiscan (Regadenoson). [ ] Nitro administered. Nursing Comments: Patient was unable to reach target heart rate on the treadmill despite increasing incline and speed. Patient had shortness of breath on the treadmill and was unable to continue and her heart rate was maintaining throught out the time in that stage. Patient was switched to a lexiscan. Patient reported shortness of breath, a headache, nausea and chest pressure following the administration of the lexiscan. The chest pressure and shortness of breath remained during the rest period following the test. Aminophylline was administered and the patient reported that the remaining symptoms resolved. Patient was back to baseline per her report before leaving the stress lab and was taken to the cafeteria for breakfast.
--- NOTE | 2024-05-12 17:16 | PM.STRESS ---
Stress Test Stress Test Allergies Allergy/AdvReac Type Severity Reaction Status Date / Time No Known Drug Allergies Allergy Verified 05/21/23 16:00 Requesting physician: Juancarlos Sheth Procedure: Lexiscan Cardiolite stress test General Information: Reason for Stress Test: Chest pain & dyspnea Cardiac History and Risk Factors: Smoker, history of mini-strokes Resting 12 - Lead Electrocardiogram: Rate & rhythm: Sinus bradycardia at a rate of 54. [place]: Normal T-waves: Inverted in aVL ST-segments: Normal orientation Stress Test: Protocol: Srinivasa protocol was initiated, but due to inability to achieve target heart rate, the exercise component was canceled.? Testing was changed to Lexiscan protocol, with injection of 0.4mg Lexiscan IV push followed by Cardiolite. Blood pressure: Initial: 126/80, Maximum: 158/84 Rate & rhythm: Patient remained in sinus rhythm during the exercise and recovery portions of the study.? The maximum heart rate was 134, which was 80% of the maximum predicted heart rate. ST-segments & T-waves: During exercise, downsloping appeared in the inferior leads (II, III, aVF). After study was changed to Lexiscan, after infusion, 1mm ST segment depression manifested in the lateral leads (V4-6) followed by the inferior leads. Abnormal changes resolved to baseline by 8 minutes post-infusion Patient response/symptoms: Dyspnea and chest pressure was noted, but unclear if they are reproducible of the chief complaint. Interpretation: This is an abnormal Lexiscan stress test based on 1mm ST segment depression of the inferolateral leads. Patient complained of dyspnea and chest pressure, but unclear if these were side effects from Lexiscan or reproducible symptoms of the chief complaint. Cardiolite imaging interpretation will be reported separately. Clinical correlation required.?
== END 2024-05-12 07:21 | disposition home or self-care (01) ==
LOC: NM 07:20
PROVIDERS: PCP Family Medicine; Visit Provider Family Medicine
DX: R00.8 Other abnormalities of heart beat (principal); R00.0 Tachycardia, unspecified; G43.909 Migraine, unspecified, not intractable, without status migrainosus; M54.12 Radiculopathy, cervical region; R07.9 Chest pain, unspecified; M50.30 Other cervical disc degeneration, unspecified cervical region
CPT/HCPCS: 71046; 72141; 78452; 93017; A9500; J0280; J2785

== ENCOUNTER 2024-06-02 07:56 | Outpatient (OUT) | payer MEDICAID, SELFPAY ==
[2024-06-02 08:06] LABS: Hemoglobin 14.9 g/dL (12.0-16.0)
--- NOTE | 2024-06-02 08:06 | CA_ITS ---
Patient Name: TIGRE MENDOZA MR#: [id number] : 1970 Exam Date: 06/02/2024 Ordering Doctor: DR. MITA TRINIDAD M.D. ECHOCARDIOGRAM REPORT PROCEDURE: CA ECHO DOPPLER COMPLETE INDICATIONS: FRANCO COMPARISON: None. DESCRIPTION: COMPLETE ECHOCARDIOGRAM Real-time transthoracic echocardiography with 2D, M-mode, spectral and color flow Doppler performed. QUALITY: Technical quality was good. LEFT VENTRICLE: Normal chamber size. Normal left ventricular wall thickness. LV EF: Global left ventricular systolic function is normal. Calculated left ventricular ejection fraction is 62%. No significant wall motion abnormalities. DIASTOLIC: Normal diastolic function. ATRIAL SEPTUM: Inadequately seen. LEFT ATRIUM: Normal chamber size. RIGHT ATRIUM: Normal chamber size. RIGHT VENTRICLE: Normal chamber size. Normal right ventricular systolic function. TRICUSPID VALVE: Normal mobility and thickness. No stenosis with trivial regurgitation. No evidence of pulmonary hypertension. RVSP 30mmHg MITRAL VALVE: Normal mobility and thickness. No evidence of mitral valve stenosis. Mild mitral annular calcification. Trivial mitral regurgitation. AORTIC VALVE: Normal trileaflet appearance. Thickened aortic valve. Normal leaflet mobility. No evidence of aortic valve stenosis. Trivial aortic regurgitation. AORTIC ROOT: Normal diameter and appearance. PULMONIC VALVE: Normal thickness and mobility. No stenosis. Trivial regurgitation. PERICARDIUM: No evidence of pericardial effusion. IVC: Collapses with inspirations. Normal size. CONCLUSION: 1. Global left ventricular systolic function is normal; visually estimated ejection fraction is 60 to 65% 2. Normal right ventricular size and systolic function 3. Normal diastolic function 4. The left atrium is normal in size 5. No significant valvular abnormalities Adult Echocardiography Procedure Report Left Ventricle LVEDD (3.7 - 5.6 cm): 3.82 cm LVESD (2.2 - 4.0 cm): 2.61 cm LVIVS thickness (0.6 - 1.2 cm): 1.05 cm LVPW thickness (0.5 - 1.0 cm): 0.82 cm e': 0.12 m/s E - e': 8.88 LVOT Max Gradient: 2.93 mm[Hg] LVOT Area (cm2): 0.86 m/s Peak Velocity (LVOT): 0.86 m/s Mean Velocity (LVOT): 0.58 m/s LVOT Diameter 1.96 cm Left Ventricular Ejection Fraction: 61.56 % Left Atrium LA Volume Index (2D A2C): 30.91 ml/m2 Left Atrium Systolic Dimension: 3.34 cm Mitral Valve MV E to A Ratio: 1.90, 2.38 Mitral Valve A-Wave Peak Velocity: 0.52 m/s Mitral Valve E-Wave Peak Velocity: 1.09 m/s Right Ventricle RV Internal Diastolic Dimension: 3.79 cm Aorta AO Root Diam: 2.89 cm Ascending Ao Diam: 2.83 cm Aortic Valve AoV Area ([place]): 2.13 cm2, 2.23 cm2 AoV Area (VTI): 1.93 cm2, 2.08 cm2 Peak Velocity(Antegrade Flow): 1.16 m/s, 1.26 m/s Peak Gradient(Antegrade Flow): 5.38 mm[Hg], 6.39 mm[Hg] Mean Velocity(Antegrade Flow): 0.78 m/s, 0.86 m/s Mean Gradient(Antegrade Flow): 2.80 mm[Hg], 3.40 mm[Hg] Velocity Time Integral: 28.70 cm, 33.32 cm Tricuspid Valve Peak Velocity (Regurgitant Flow): 2.61 m/s, 2.27 m/s, 2.51 m/s Pulmonic Valve Mean Gradient: 2.11 mm[Hg] Mean Velocity: 0.69 m/s Peak Velocity: 0.94 m/s, 0.87 m/s Peak Gradient: 3.05 mm[Hg], 3.51 mm[Hg] Right Atrium Right Atrium Systolic Pressure: 59.29 ml, 59.29 ml Dictated by: Adalberto Pond M.D. on 06/04/2024 at 16:38 Approved by: Adalberto Pond M.D. on 06/04/2024 at 16:41
== END 2024-06-02 07:57 | disposition home or self-care (01) ==
LOC: CARD 07:56
PROVIDERS: PCP Family Medicine; Visit Provider Internal Medicine Cardiovascular Disease
DX: R06.09 Other forms of dyspnea (principal); R06.02 Shortness of breath
CPT/HCPCS: 36415; 85018; 93306; 94010; 94726; 94729

== ENCOUNTER 2024-09-14 12:53 | Outpatient (OUT) | payer MEDICAID, SELFPAY ==
--- NOTE | 2024-09-14 12:57 | CT_ITS ---
[address] [address] Patient Name: TIGRE MENDOZA MRN: [id number] date: 1970 Sex: F Assigned Patient Location: CT Current Patient Location: Accession/Order Number: [id number] Exam Date: 09/14/2024 13:20 Report Date: 09/16/2024 04:08 At the request of: RAQUEL TAVERA Procedure: CT lung screening low-dose EXAMINATION: CT lung screening low-dose HISTORY: Nicotine Dependence COMPARISON: CT lung screening 09/04/2023 TECHNIQUE: Axial, Coronal, and Sagittal images were created without the administration of IV contrast material. Dose reduction techniques were achieved by using automated exposure control and/or adjustment of mA and/or kV according to patient size and/or use of iterative reconstruction technique. FINDINGS: LUNGS: No visible pulmonary disease. PLEURA: No mass, effusion, or pneumothorax. VASCULATURE: No abnormality. MICHELLE: No mass or pathologic adenopathy. MEDIASTINUM: No mass or pathologic adenopathy. CARDIAC: No enlargement, pericardial thickening, or pericardial effusion. Coronary Artery calcifications: Coronary calcifications are mild. AORTA: No aneurysm or dissection. CHEST WALL: No mass or axillary adenopathy BONES: No bone lesion or fracture. LIMITED ABDOMEN: No suspicious findings. Limited images of the upper abdomen. OTHER: Negative. CT/CT lung screening low-dose IMPRESSION: 1. Lung-RADS Category 1 Negative. No nodules and definitely benign nodules. Continue annual screening with LDCT in 12 months. Electronically authenticated by: EDSON CAN Date: 09/16/2024 04:08
== END 2024-09-14 12:54 | disposition home or self-care (01) ==
LOC: CT 12:53
PROVIDERS: PCP Family Medicine; Visit Provider Internal Medicine
DX: F17.219 Nicotine dependence, cigarettes, with unspecified nicotine-induced disorders (principal); Z12.2 Encounter for screening for malignant neoplasm of respiratory organs
CPT/HCPCS: 71271

== ENCOUNTER 2024-10-13 08:47 | Outpatient (OUT) | payer MEDICAID, SELFPAY ==
--- OUTSIDE RECORDS SUMMARY | 2024-10-13 08:57 | XMS_ITS | CCD ---
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 Name Role Phone PHYSICIAN, DEFAULT Unavailable Unavailable PHYSICIAN, DEFAULT Unavailable Unavailable ROSELINEY, DR ANNA Admitting Unavailable HOY, DR ANNA [...] Consulting Unavailable HOY, DR ANNA Attending Unavailable Giuliano SWIFT Attending Unavailable MITA TRINIDAD Referring Unavailable MITA TRINIDAD Attending Unavailable MITA TRINIDAD Attending Unavailable MITA TRINIDAD Attending Unavailable Allergies Allergy Classification Reported Allergen(s) Allergy Type Date of Onset Reaction(s) Facility Opioid Agonists (2 sources) Codeine Drug Allergy 04-08-2013 [facility] Repository Problems Active Problems Problem Classification Problem Date Documented Date Episodic/Chronic Coronary atherosclerosis and other heart disease (2 sources) Atherosclerotic heart disease of [place] coronary artery without angina pectoris; Translations: [Atherosclerotic heart disease of [place] coronary artery without angina pectoris] Onset: 10-06-2024 Chronic Disorders of lipid metabolism (6 sources) Pure hypercholesterolemia, unspecified; Translations: [Hyperlipidemia, unspecified] Onset: 05-15-2024 Chronic Essential hypertension (2 sources) Essential (primary) hypertension; Translations: [Essential (primary) hypertension] Onset: 07-18-2024 Chronic Other lower respiratory disease (2 sources) Other forms of dyspnea; Translations: [Other forms of dyspnea] Onset: 05-17-2024 Episodic Other screening for suspected conditions (not mental disorders or infectious disease) (2 sources) Abnormal result of other cardiovascular function study; Translations: [Abnormal result of other cardiovascular function study] Onset: 07-18-2024 Episodic Unclassified (3 sources) CONTACT W/AND (SUSP) EXPOS COVID-19; Translations: [CONTACT W/AND (SUSP) EXPOS COVID-19] Onset: 09-28-2020 Unclassified (1 source) Supraventricular tachycardia, unspecified; Translations: [Supraventricular tachycardia, unspecified] Onset: 05-17-2024 Past or Other Problems Problem Classification Problem Date Documented Date Episodic/Chronic Cardiac dysrhythmias (2 sources) Palpitations; Translations: [Palpitations] Onset: 05-15-2024 Episodic Immunizations and screening for infectious disease (4 sources) Contact with and (suspected) exposure to other viral communicable diseases; Translations: [CONTCT EXPS OTH VIRL COMMUNICABL DZ] Onset: 07-13-2020 Episodic Other upper respiratory infections (1 source) Acute recurrent frontal sinusitis; Translations: [ACUTE RECURRENT FRONTAL SINUSITIS] Onset: 07-18-2020 Episodic Residual codes; unclassified (2 sources) Tobacco use; Translations: [Tobacco use] Onset: 05-15-2024 Episodic Unclassified (1 source) CONTACT W/AND (SUSP) EXPOS COVID-19; Translations: [CONTACT W/AND (SUSP) EXPOS COVID-19] Onset: 09-23-2020 Unclassified (1 source) Supraventricular tachycardia, unspecified; Translations: [Supraventricular tachycardia, unspecified] Onset: 05-15-2024 Results Test Name Value Interpretation Reference Range Facility Office Visiton 10-06-2024 Follow-up visit [id number] NikoAlyssia Tiki 1970 F Date Provider Department Center 10/06/2024 [id number]-ZUHUNDMITA TRINIDAD Family History Problem Relation Age of Onset No Known Problems Mother No Known Problems Father Family Status - Relation Status Age at Mother Father Level of Service:73126 MT OFFICE/OUTPATIENT ESTABLISHED LOW MDM 20 MIN Reason for Visit and Comments: Shortness of Breath [776773] - Had CTA coronaries a few weeks ago at [facility] [[email or web address] She is now seeing Dr. Montano of pulmonology, who gave her a new inhaler. She says this has been helping her SOB. Palpitations [826544] Hyperlipidemia [182] - No lab results since Sep 2023. Hypertension [433445] Normal [facility] CTA HEART CORONARY W IV CONT RAST W OR WO FFRCTon 09-15-2024 CTA HEART CORONARY W IV CONTRAST W OR WO FFRCT CTA HEART CORONARY W IV CONTRAST W OR WO FFRCT 09/15/2024 8:31 AM CLINICAL INDICATIONS: Dyspnea on exertion. Abnormal stress test TECHNOLOGIST COMMENTS: Dyspnea on exertion. QUESTION FOR RADIOLOGIST: Evaluate possibility of coronary artery stenosis. PROTOCOL: Gated cardiac CTA CONTRAST: 100 mL Omnipaque 350 TECHNIQUE: Multidetector CT angiogram was obtained using retrospective ECG gating. Imaging was performed from the level of the clavicles to the level of the hemidiaphragms. In order to provide better evaluation of the anatomy and disease process, advanced off-line 3-D post-processing techniques, including heart flow evaluation and roadmap overview were performed. Medication administered in preparation for the examination is located in nursing documentation. All CT scans at this facility use dose modulation, iterative reconstruction, and/or weight based dosing when appropriate to reduce radiation dose to as low as reasonably achievable COMPARISON: None. CORONARY ARTERY ANGIOGRAM FINDINGS: Stenoses are reported as maximum percentage diameter stenosis. Stenosis grading is reported using the following scheme: Normal: no stenosis Mild: 1-49% stenosis Moderate: 50-70% stenosis Severe: >70% stenosis Occluded Dominance of the coronary artery system: right with normal origins and course. Left Main: The left main is a normal caliber vessel which gives rise to the LAD and circumflex arteries The left main with no significant plaque. No significant stenosis Left Anterior Descending Artery: The proximal left anterior descending artery and first diagonal branch with tiny calcified plaque in the proximal segment . The mid-distal LAD, D2 and D3 branches with no significant plaque. There is a no evidence of myocardial bridge in the LAD segment. No significant stenosis in the LAD Left Circumflex Artery: The left circumflex artery and its obtuse marginal branches with minimal plaque. There is mild stenosis in the proximal left circumflex between 30 and 49%. Right Coronary Artery: The right coronary artery and acute marginal branches with minimal plaque. The vessel terminates as PDA and posterolateral branch. There is mild stenosis between 30 and 49% at the origin of the RCA. Small calcified plaque in the proximal segment with stenosis less than 30%. Cardiac Morphology: The right atrium is normal. The right ventricle is normal. The left atrium is normal. The left ventricle is normal. The pericardium is normal and there is no pericardial effusion. Cardiac Devices and Indwelling Central Venous Lines: No central lines or pacer devices are seen. EXTRACARDIAC FINDINGS: Other lung findings: Visualized lungs appear grossly unremarkable. Airway: Visualized airway appears normal Pleura: No pleural effusion, thickening, or pneumothorax. Thoracic aorta and great vessels: Normal in diameter. Pulmonary arteries: Normal. Heart and pericardium: Normal. Lymph nodes: No enlarged thoracic lymph nodes. Thoracic spine: Minimal bony spurring suggesting minimal thoracic spondylosis. Chest wall: Normal. Visualized upper abdomen: Normal. IMPRESSION: 1. Normal coronary CTA without evidence for significant coronary artery stenosis.. There is mild stenosis seen in the proximal RCA between 30 and 49% and in the left circumflex also between 30 and 49% Minimal thoracic spondylosis. No other acute abnormalities are appreciated. Electronically signed: Ely Ceja MD. Not Vldtd Invalid Interpretation Code [facility] Office Visiton 07-15-2024 Follow-up visit [id number] Alyssia Mendoza 1970 F Date Provider Department Center 07/15/2024 [id number]-NHSCLGMITA TRINIDAD CHILO Martinez Family History Problem Relation Age of Onset No Known Problems Mother No Known Problems Father Family Status - Relation Status Age at Mother Father Level of Service:41398 MT OFFICE/OUTPATIENT ESTABLISHED MOD MDM 30 MIN Reason for Visit and Comments: Hyperlipidemia [182] Hypertension [873199] Palpitations [036312] - Had echo last month. dyspnea on exertion [Other] - Had PFT's last month and was referred to Dr. Montano of pulmonology. She is scheduled to see him 09/02/2024. Denies chest pain. Still very SOB with very minimal exertion. smoker [Other] - Says she's cut down to half PPD. Normal [facility] 36on 06-15-2024 36 Regarding echo and PFT result from 06/02/2024: MD Christa Garza MA PFT appears to be normal. Her echo was also normal. Referral to pulmonary to evaluate for exertional dyspnea. Also advised the patient to start walking and aim to achieve 1 mile per day 5 days a week. Spoke with patient and she agrees to see Dr. Montano. Referral sent. Normal [facility] Office Visiton 05-15-2024 Follow-up visit [id number] Alyssia Mendoza Tiki 1970 Provider Department Center 05/15/2024 [id number]-PTBFZIMITA RODRIGUEZ CHILO [facility] Family History Problem Relation Age of Onset No Known Problems Mother No Known Problems Father Family Status - Relation Status Age at Mother Father Level of Service:29109 MT OFFICE/OUTPATIENT NEW MODERATE MDM 45 MINUTES Reason for Visit and Comments: New Patient [632] - Pt had a abnormal stress Normal [facility] Orders Onlyon 05-15-2024 Orders Only [id number] Alyssia Mendoza 1970 Provider Department Center 05/15/2024 [facility] Family History Problem Relation Age of Onset No Known Problems Mother No Known Problems Father Family Status - Relation Status Age at Mother Father Normal [facility] Consenton 03-29-2023 Consent [id number]:127 Normal [facility] Registrationon 03-29-2023 Registration [id number]:127 Normal [facility] FSHon 03-25-2021 FSH 29.0 mIU/mL Normal [facility] Comment on above: Result Comment: Adul t Female: Follicular phase 3.5 - 12.5 Ovulation phase 4.7 - 21.5 Luteal phase 1.7 - 7.7 Postmenopausal 25.8 - 134.8 Performed By: #### L [facility] #### [facility] [address], [place] [address] Judi Alberts INSULINon 03-25-2021 Insulin 7.9 uIU/mL Normal 2.6-24.9 [facility] Comment on above: Performed By: #### C BC #### [facility] [address], [place] [address] Judi Alberts CBC AUTO DIFFon 03-24-2021 BASO # 0.0 103/ul Normal 0.0-0.1 [facility] Comment on above: Performed By: #### C BC #### [facility] [address] [place], [place] [address] Judi Lexus Basophils/100 WBC (Bld) 0.4 % Normal 0.2-2.0 [facility] Comment on above: Performed By: #### C BC #### [facility] [address] [place], [place] [address] Judi Lexus EO # 0.1 103/ul Normal 0.0-0.7 [facility] Comment on above: Performed By: #### C BC #### [facility] [address] [place], [place] [address] Judi Lexus Eosinophils/100 WBC (Bld) 1.1 % Normal 0.9-7.0 [facility] Comment on above: Performed By: #### C BC #### [facility] [address] [place] [address] Judi Lexus Erythrocyte distribution width (RBC) [Ratio] 13.1 % Normal 11.0-15.0 [facility] Comment on above: Performed By: #### C BC #### [facility] [address] [place], [place] [address] Judi Lexus Hematocrit (Bld) [Volume fraction] 44.1 % Normal 36.0-48.0 [facility] Comment on above: Performed By: #### C BC #### [facility] [address] [place], [place] [address] Judi Lexus Hemoglobin (Bld) [Mass/Vol] 14.9 g/dL Normal 12.0-16.0 [facility] Comment on above: Performed By: #### C BC #### [facility] [address] [place], [place] [address] Judi Lexus IG # 0.01 10e3/ul Normal 0.00-0.03 [facility] Comment on above: Performed By: #### C BC #### [facility] [address] [place], [place] [address] Judi Lexus IG % 0.1 % Normal 0.0-0.5 [facility] Comment on above: Performed By: #### C BC #### [facility] [address] [place] [id number] Judi Lexus LYMPH # 1.7 103/ul Normal 1.2-3.8 [facility] Comment on above: Performed By: #### C BC #### [facility] [address] [place], [place] [address] Judi Lexus Lymphocytes/100 WBC (Bld) 22.1 % Normal 20.5-60.0 [facility] Comment on above: Performed By: #### C BC #### [facility] [address] [place], [place] [address] Judi Lexus MANUAL DIFF REQ NO Normal [facility] Comment on above: Performed By: #### C BC #### [facility] [address] [place], [place] [address] Judi Lexus MCH (RBC) [Entitic mass] 30.0 pg Normal 26.7-34.0 [facility] Comment on above: Performed By: #### C BC #### [facility] [address] [place], [place] [address] Judi Lexus MCHC (RBC) [Mass/Vol] 33.8 g/dL Normal 29.9-35.2 [facility] Comment on above: Performed By: #### C BC #### [facility] [address] [place], [place] [address] Judi Lexus MCV (RBC) [Entitic vol] 88.7 fL Normal 81.0-99.0 [facility] Comment on above: Performed By: #### C BC #### [facility] [address] [place], [place] [address] Judi Lexus MONO # 0.6 103/ul Normal 0.3-0.8 [facility] Comment on above: Performed By: #### C BC #### [facility] [address] [place], [place] [address] Judi Lexus Monocytes/100 WBC (Bld) 8.3 % Normal 1.7-12.0 [facility] Comment on above: Performed By: #### C BC #### [facility] [address] [place] [address] Judibeckie Hartmanen NEUT # 5.1 103/ul Normal 1.4-6.5 [facility] Comment on above: Performed By: #### C BC #### [facility] [address] [place], [place] [address] Judi Alberts Neutrophils/100 WBC (Bld) 68.0 % Normal 43.0-75.0 [facility] Comment on above: Performed By: #### C BC #### [facility] [address] [place], [place] [address] Judibeckie Alberts Platelet mean volume (Bld) [Entitic vol] 10.3 fL Normal 9.5-13.5 [facility] Comment on above: Performed By: #### C BC #### [facility] [address] [place] [address] Judi Lexus PLT 270 103/ul Normal 150-450 [facility] Comment on above: Performed By: #### C BC #### [facility] [address] [place] [address] Judi Lexus RBC 4.97 106/ul Normal 4.20-5.40 [facility] Comment on above: Performed By: #### C BC #### [facility] [address] [place] [address] Judi Lexus WBC 7.5 103/ul Normal 4.0-11.0 [facility] Comment on above: Performed By: #### C BC #### [facility] [address] [place], [place] [address] Judibeckie Hartmanen FREE THYROXINE INDEX T7on FTI 3.15 Normal [facility] Comment on above: Performed By: #### C MP, LIPID, TSH, T7 #### [facility] [address] [place], [place] [address] Judi Lexus T3U 35.0 % Normal 23.5-40.5 [facility] Comment on above: Performed By: #### C MP, LIPID, TSH, T7 #### [facility] [address] [place], [place] [address] Judi Lexus T4 [Mass/Vol] 9.00 ug/dL Normal 5.53-11.00 [facility] Comment on above: Performed By: #### C MP, LIPID, TSH, T7 #### [facility] [address], [place] [address] Judi Alberts GLYCOHEMOGLOBIN A1Con 2020 ADA RECOMMENDATION ADA THERAPEUTIC TARGET 6.0 - 7.0 ACTION SUGGESTED > 7.0 Normal [facility] Comment on above: Performed By: #### A 1C #### [facility] [address] [place] [address] Judi Lexus Glucose [Mass/Vol] 105 mg/dL Normal [facility] Comment on above: Performed By: #### A 1C #### [facility] [address] [place] [address] Judi Lexus HbA1c (Bld) [Mass fraction] 5.3 % Normal <=6.0 [facility] Comment on above: Performed By: #### A 1C #### [facility] [address] [place] [address] Judi Alberts IRONon 03-24-2021 Iron [Mass/Vol] 36.0 ug/dL Critically low 37.0-170.0 [facility] Comment on above: Performed By: #### I SUZY #### [facility] [address] [place] [address] Judibeckie Alberts LIPID PROFILEon 03-24-2021 CHOL-HDL RATIO NORM SEE BELOW Normal [facility] Comment on above: Result Comment: 3.3 - 4.4 LOW RISK 4.4 - 7.1 AVERAGE RISK 7.1 - 11.0 MODERATE RISK >11.0 HIGH RISK Performed By: #### C MP, LIPID, TSH, T7 #### [facility] [address] [place] [address] Judi Lexus Cholesterol [Mass/Vol] 226 mg/dL Critically high <=200 [facility] Comment on above: Performed By: #### C MP, LIPID, TSH, T7 #### [facility] [address] [place] [address] Judi Lexus Cholesterol in HDL [Mass/Vol] 55 mg/dL Normal [facility] Comment on above: Performed By: #### C MP, LIPID, TSH, T7 #### [facility] [address] [place] [phone] Judi Lexus Cholesterol in LDL [Mass/Vol] 161.6 mg/dL Normal [facility] Comment on above: Performed By: #### C MP, LIPID, TSH, T7 #### [facility] [address] [place] [phone] Judi Lexus Cholesterol.total/Ch olesterol in HDL [Mass ratio] 4.1 {ratio} Normal [facility] Comment on above: Performed By: #### C MP, LIPID, TSH, T7 #### [facility] [address] [place] [phone] Judi Lexus HDL NORMAL > or = 60 mg/dl - LOW CARDIOVASCULAR RISK <40 mg/dl - HIGH CARDIOVASCULAR RISK Normal [facility] Comment on above: Performed By: #### C MP, LIPID, TSH, T7 #### [facility] [address] [place] [phone] Judi Lexus LDL CALC NORMAL SEE BELOW Normal [facility] Comment on above: Result Comment: <100 mg/dl OPTIMAL 100 - 129 mg/dl NEAR OR ABOVE OPTIMAL 130 - 159 mg/dl BORDERLINE HIGH 160 - 189 mg/dl HIGH >190 mg/dl VERY HIGH Performed By: #### C MP, LIPID, TSH, T7 #### [facility] [address] [place] [phone] Judi Lexus Triglyceride [Mass/Vol] 47 mg/dL Normal <=150 [facility] Comment on above: Performed By: #### C MP, LIPID, TSH, T7 #### [facility] [address] [phone] Judi Lexus VLDL CALC 9.4 mg/dL Normal [facility] Comment on above: Performed By: #### C MP, LIPID, TSH, T7 #### [facility] [address] [place] [phone] Judi Lexus PROF 14(COMP METB)on 021 Albumin [Mass/Vol] 3.4 g/dL Critically low 3.5-5.0 [facility] Comment on above: Performed By: #### C MP, LIPID, TSH, T7 #### [facility] [address] [place] [phone] Judi Lexus Albumin/Globulin [Mass ratio] 0.9 {ratio} Normal [facility] Comment on above: Performed By: #### C MP, LIPID, TSH, T7 #### [facility] [address] [place] [phone] Judi Lexus ALP [Catalytic activity/Vol] 95 U/L Normal 38-126 [facility] Comment on above: Performed By: #### C MP, LIPID, TSH, T7 #### [facility] [address] [place] [address] Judi Lexus ALT [Catalytic activity/Vol] 17 U/L Normal 9-52 [facility] Comment on above: Performed By: #### C MP, LIPID, TSH, T7 #### [facility] [address] [place] [address] Judi Lexus Anion gap [Moles/Vol] 12.0 mmol/L Normal [facility] Comment on above: Performed By: #### C MP, LIPID, TSH, T7 #### [facility] [address] [place] [address] Judi Lexus AST [Catalytic activity/Vol] 14 U/L Normal 14-36 [facility] Comment on above: Performed By: #### C MP, LIPID, TSH, T7 #### [facility] [address] [place], [place] [address] Judi Lexus Bilirubin [Mass/Vol] 0.3 mg/dL Normal 0.2-1.3 [facility] Comment on above: Performed By: #### C MP, LIPID, TSH, T7 #### [facility] [address] [place], [place] [address] Judi Lexus Calcium [Mass/Vol] 9.0 mg/dL Normal 8.4-10.[address] [facility] Comment on above: Performed By: #### C MP, LIPID, TSH, T7 #### [facility] [address] [place], [place] [address] Judi Lexus Chloride [Moles/Vol] 105 mmol/L Normal 98-107 [facility] Comment on above: Performed By: #### C MP, LIPID, TSH, T7 #### [facility] [address] [place] [phone] Judi Lexus CO2 [Moles/Vol] 26.3 mmol/L Normal 22.0-30.0 [facility] Comment on above: Performed By: #### C MP, LIPID, TSH, T7 #### [facility] [address] [place] [address] Judi Lexus Creatinine [Mass/Vol] 0.89 mg/dL Normal 0.52-1.04 [facility] Comment on above: Performed By: #### C MP, LIPID, TSH, T7 #### [facility] [address] [place] [address] Judi Lexus EGFR-AF MALIAN >60 Normal >=60 [facility] Comment on above: Performed By: #### C MP, LIPID, TSH, T7 #### [facility] [address] [place] [address] Judi Lexus EGFR-NON AF MALIAN >60 Normal >=60 [facility] Comment on above: Performed By: #### C MP, LIPID, TSH, T7 #### [facility] [address] [place] [phone] Judi Lexus Globulin (S) [Mass/Vol] 3.6 g/dL Normal [facility] Comment on above: Performed By: #### C MP, LIPID, TSH, T7 #### [facility] [address] [address] Judi Lexus Glucose [Mass/Vol] 98 mg/dL Normal 74-106 [facility] Comment on above: Performed By: #### C MP, LIPID, TSH, T7 #### [facility] [address] [place] [phone] Judi Lexus Potassium [Moles/Vol] 4.3 mmol/L Normal 3.4-5.0 [facility] Comment on above: Performed By: #### C MP, LIPID, TSH, T7 #### [facility] [address] [address] Judi Lexus Protein [Mass/Vol] 7.0 g/dL Normal 6.1-8.2 [facility] Comment on above: Performed By: #### C MP, LIPID, TSH, T7 #### [facility] [address] [place] [address] Judi Lexus Sodium [Moles/Vol] 139 mmol/L Normal 137-145 [facility] Comment on above: Performed By: #### C MP, LIPID, TSH, T7 #### [facility] [address] [place] [address] Judi Lexus Urea nitrogen [Mass/Vol] 19.0 mg/dL Critically high 7.0-17.0 [facility] Comment on above: Performed By: #### C MP, LIPID, TSH, T7 #### [facility] [address] [place] [address] Judi Lexus Urea nitrogen/Creatinine [Mass ratio] 21.3 mg/mg Normal [facility] Comment on above: Performed By: #### C MP, LIPID, TSH, T7 #### [facility] [address] [place] [address] Judi Lexus TSHon 03-24-2021 TSH 1.176 uIU/mL Normal 0.470-4.680 [facility] Comment on above: Performed By: #### C MP, LIPID, TSH, T7 #### [facility] [address] [place] [address] Judi Lexus TSH RANGE SEE BELOW Normal [facility] Comment on above: Result Comment: <0.3 4 UIU/ml HYPERTHYROID 0.34-5.60 UIU/ml EUTHYROID >5.60 UIU/ml HYPOTHYROID Performed By: #### C MP, LIPID, TSH, T7 #### [facility] [address] [place] [address] Judi Lexus Covid-19 PCR (CVDTBH)on EUA Statement SEE BELOW Normal [facility] Comment on above: Result Comment: This test is not yet approved or cleared by the [place] FDA. When there are no FDA-approved or cleared tests available, and other criteria are met, FDA can make tests available under an emergency access mechanism called an Emergency Use Authorization (EUA). The EUA for this test is supported by the [place] of Health and Human Service?s (HHS?s) declaration [...] consistent with SARS-CoV-2. Performed By: #### C VDTB #### [facility] [address] [place] [address] Judi Alberts SARS-CoV-2 (COVID-19) RNA JEWEL+probe Ql (Unsp spec) Not detected Normal NOT DETECTED [facility] Comment on above: Result Comment: This test is not yet approved or cleared by the [place] FDA. When there are no FDA-approved or cleared tests available, and other criteria are met, FDA can make tests available under an emergency access mechanism called an Emergency Use Authorization (EUA). The EUA for this test is supported by the [place] of Health and Human Service's (HHS's) declaration [...] longer be used). Performed By: #### C VDTB #### [facility] [address] [place] [address] Judi Alberts COVID-19 PCRon 07-14-2020 SARS-CoV-2 (COVID-19) RNA JEWEL+probe Ql (Unsp spec) Not detected Normal Not Detected [facility] Comment on above: Result Comment: This nucleic acid amplification test was developed and its performance characteristics determined by [employer]. Nucleic acid amplification tests include PCR and [...] assay. Performed By: #### C VDPCR #### [facility] [address] [place] [address] Judi Alberts Encounters Encounter Date Encounter Type Care Provider Facility Start: 10-06-2024 End: 10-06-2024 ambulatory [facility] Start: 09-15-2024 End: 09-15-2024 ambulatory [facility] Start: 07-15-2024 End: 07-15-2024 ambulatory [facility] Start: 05-15-2024 ambulatory [facility] Start: 03-29-2023 End: 03-30-2023 ambulatory Giuliano SWIFT Facility:[facility] Start: 05-17-[address] SHOSHANA TAVERA Facility :[facility] Start: 04-03-2021 Encounter for genera l adult medical examination without abnormal findings DR SHOSHANA TAVERA [facility] Start: 03-24-2021 End: 03-25-[address] SHOSHANA TAVERA Facility:[facility] Start: 03-24-2021 End: 03-25-2021 Encounter for general adult medical examination without abnormal findings DR SHOSHANA TAVERA Facility:[facility] Start: 09-23-2020 End: 09-23-[address] SHOSHANA TAVERA Facility:[facility] Start: 07-13-2020 End: 07-14-[address] SHOSHANA TAVERA Facility:[facility] Start: 06-05-[address] SHOSHANA TAVERA Facility :[facility] Start: 10-25-2017 End: 10-26-2017 Ambulatory DEFAULT PHYSICIAN Facility:[facility] [[email or web address] Payers Date Payer Category Payer Private Health Insurance [id number] 1970 Unknown [id number] 2.16.84 [id number] 1970 Unknown [id number] 2.16.84 [id number] 1970 Unknown [id number] 2.16.84 [id number] 1970 Unknown [id number] 2.16.84 [id number] 1970 Unknown [id number] 2.16.84 [id number] 1958 Private Health Insurance [id number] 1958 Self-pay [id number] Unknown Progress note 10-06-2024 Note Date & Type Note Facility 10-06-2024 Note [facility] Note Reason for cardiology visit: Follow-up Chief Complaint: Exertional dyspnea HPI: 10/06/2024 Patient is here today for follow-up visit. She continues to be short of breath but it is better after she started inhalers. She cut down extremely on her smoking and now she smokes only 1 to 2 cigarettes/day. She denies any chest discomfort at rest or with exertion. She denies orthopnea or paroxysmal nocturnal dyspnea or dizziness or palpitations or legs edema. 07/15/2024 Patient is here today for follow-up visit. She had pulmonary function function test and interestingly came back to be normal. She still has dyspnea on exertion. She was started on inhalers by her PCP and she thinks it helps. She denies history of asthma. She cut down on smoking to half pack per day. She denies chest pain or orthopnea or paroxysmal nocturnal dyspnea or dizziness or palpitation or legs edema. She reports that her toes feel cold and they turn white in cold. No issues with her fingers. She states that she was like that for many years. She denies pain. 05/15/2024 Alyssia Mendoza is a 54 y.o. female without past medical history, she has history of hypertension, hypercholesterolemia who could not tolerate one of the statins causing dizziness, no history of diabetes mellitus. She is a smoker 1 pack/day since she was 17-year-old. The patient states that she had dyspnea on exertion for at least 6 months started initially when she was climbing stairs however it has been getting worse over time. She denies chest discomfort at rest or with exertion. She denies orthopnea or paroxysmal nocturnal dyspnea or dizziness or legs edema or leg discomfort on exertion. Occasional palpitation in association with exertion therefore event monitor was ordered. She was referred for treadmill stress nuclear test at [facility] and it was reported that the nuclear portion was normal without evidence of ischemic defect with normal ejection fraction 81% but the EKG was reported to be abnormal. I reviewed the EKG portion of the stress test myself and my interpretation is mentioned under testing. Patient is a heavy smoker 1 pack/day since she was 17-year-old. She denies alcohol or illicit drugs. She also drinks a lot of caffeine about a pot a day but according to her she drinks enough water. The patient does not know her family medical history because she is adopted and she knows nothing about her biological parents ROS: All systems were reviewed and they were negative except for the positive findings noted above in the history Past Medical History She has a past medical history of Abnormal ECG, GERD (gastroesophageal reflux disease), Hyperlipidemia, and Hypertension. Surgical History She has a past surgical history that includes Facial cosmetic surgery; Gallbladder surgery; and Knee surgery. Social History She reports that she has been smoking cigarettes. She has a 18.5 pack-year smoking history. She has never used smokeless tobacco. She reports that she does not drink alcohol and does not use drugs. Family History Family History Problem Relation Name Age of Onset No Known Problems Mother No Known Problems Father Allergies Patient has no known allergies. Medications Current Outpatient Medications: albuterol 90 mcg/actuation inhaler, Inhale 2 puffs every 4 (four) hours if needed., Disp: , Rfl: rmwpqqesux-wqlxmegh-zjzimtbbqd (Breztri Aerosphere) 160-9-4.8 mcg/actuation HFA aerosol inhaler, Inhale two times daily., Disp: , Rfl: metoprolol tartrate (Lopressor) 25 mg tablet, Take 25 mg by mouth with breakfast and with evening meal., Disp: , Rfl: omeprazole (PriLOSEC) [address] capsule, TAKE ONE CAPSULE BY MOUTH DAILY 30 MINUTES BEFORE MORNING MEAL, Disp: , Rfl: rosuvastatin (Crestor) 5 mg tablet, Take 1 tablet (5 mg) by mouth at bedtime., Disp: 90 tablet, Rfl: 3 Last Recorded Vitals Visit Vitals BP 128/88 (BP Location: Left arm, Patient Position: Sitting) Pulse 82 Ht 1.626 m (5' 4 ) Wt 68.9 kg (152 lb) SpO2 98% BMI 26.09 kg/m??? Smoking Status Every Day BSA 1.76 m??? Physical Examination: GENERAL: alert and oriented x3, well developed, in no acute distress. HEAD: atraumatic, normocephalic. EYES: SHAWNA, EOMI. NECK: trachea midline, no JVD present, no carotid bruits present. CARDIAC: S1, S2 present. RRR. No murmur, rubs, or gallops. RESPIRATORY: CTAB, no increased effort of breathing, no rales, rhonchi, or wheezing. ABDOMEN: soft, nontender, nondistended. EXTREMITIES: no lower extremity edema. No rash/skin discoloration present. NEURO: strength/sensation equal and symmetric in bilateral upper and lower extremities. PSYCH: appropriate mood, affect, and judgement. Labs: Labs 10/04/2023 White blood count 9.4, hemoglobin 15.5, hematocrit 47.4, at least 298 Sodium 140, potassium 4.5, BUN 24, creatinine 0.91, GFR above 60, glucose 92, calcium 9 (more content not included)... [facility] Progress note 07-15-2024 Note Date & Type Note Facility 07-15-2024 Note [facility] Note Reason for cardiology visit: Follow-up Chief Complaint: Exertional dyspnea HPI: 07/15/2024 Patient is here today for follow-up visit. She had pulmonary function function test and interestingly came back to be normal. She still has dyspnea on exertion. She was started on inhalers by her PCP and she thinks it helps. She denies history of asthma. She cut down on smoking to half pack per day. She denies chest pain or orthopnea or paroxysmal nocturnal dyspnea or dizziness or palpitation or legs edema. She reports that her toes feel cold and they turn white in cold. No issues with her fingers. She states that she was like that for many years. She denies pain. 05/15/2024 Alyssia Mendoza is a 54 y.o. female without past medical history, she has history of hypertension, hypercholesterolemia who could not tolerate one of the statins causing dizziness, no history of diabetes mellitus. She is a smoker 1 pack/day since she was 17-year-old. The patient states that she had dyspnea on exertion for at least 6 months started initially when she was climbing stairs however it has been getting worse over time. She denies chest discomfort at rest or with exertion. She denies orthopnea or paroxysmal nocturnal dyspnea or dizziness or legs edema or leg discomfort on exertion. Occasional palpitation in association with exertion therefore event monitor was ordered. She was referred for treadmill stress nuclear test at [facility] and it was reported that the nuclear portion was normal without evidence of ischemic defect with normal ejection fraction 81% but the EKG was reported to be abnormal. I reviewed the EKG portion of the stress test myself and my interpretation is mentioned under testing. Patient is a heavy smoker 1 pack/day since she was 17-year-old. She denies alcohol or illicit drugs. She also drinks a lot of caffeine about a pot a day but according to her she drinks enough water. The patient does not know her family medical history because she is adopted and she knows nothing about her biological parents Cardiology ROS: GENERAL: Denies fever, chills, night sweats, weight loss. HEENT: Denies changes in vision, photophobia, changes in hearing, epistaxis, oral bleeding. CARDIOVASCULAR: She reports significant exertional dyspnea which has been progressing over the last 6 months, denies chest pain, orthopnea/PND, lower extremity edema, palpitations, lightheadedness/dizziness. RESPIRATORY: She reports shortness of breath but denies coughing, wheezing GI: Denies abdominal pain, nausea/vomiting, heartburn, melena/hematochezia. RENAL: Denies dysuria, hematuria, flank pain. MSK: Denies muscle weakness/pain, arthralgias/joint pain. NEUROLOGIC: Denies LOC, weakness, numbness, headaches. SKIN: Denies abnormal rashes or bleeding. PSYCH: Denies significant anxiety, depression, sleep disturbances. Past Medical History She has a past medical history of Abnormal ECG, GERD (gastroesophageal reflux disease), Hyperlipidemia, and Hypertension. Surgical History She has a past surgical history that includes Facial cosmetic surgery; Gallbladder surgery; and Knee surgery. Social History She reports that she has been smoking cigarettes. She has a 18.50 pack-year smoking history. She has never used smokeless tobacco. She reports that she does not drink alcohol and does not use drugs. Family History Family History Problem Relation Name Age of Onset No Known Problems Mother No Known Problems Father Allergies Patient has no known allergies. Medications Current Outpatient Medications: albuterol 90 mcg/actuation inhaler, Inhale 2 puffs every 4 (four) hours if needed., Disp: , Rfl: diclofenac (Voltaren) 75 mg EC tablet, Take 75 mg by mouth if needed in the morning and at bedtime., Disp: , Rfl: metoprolol tartrate (Lopressor) 25 mg tablet, Take 25 mg by mouth with breakfast and with evening meal., Disp: , Rfl: omeprazole (PriLOSEC) [address] capsule, TAKE ONE CAPSULE BY MOUTH DAILY 30 MINUTES BEFORE MORNING MEAL, Disp: , Rfl: rosuvastatin (Crestor) 5 mg tablet, Take 1 tablet (5 mg) by mouth at bedtime., Disp: 90 tablet, Rfl: 3 tiZANidine (Zanaflex) 4 mg tablet, Take 8 mg by mouth at bedtime., Disp: , Rfl: Last Recorded Vitals Visit Vitals BP 90/62 (BP Location: Right arm, Patient Position: Sitting) Pulse 66 Ht 1.626 m (5' 4 ) Wt 68.9 kg (152 lb) SpO2 97% BMI 26.09 kg/m??? Smoking Status Every Day BSA 1.76 m??? Physical Examination: GENERAL: alert and oriented x3, well developed, in no acute distress. HEAD: atraumatic, normocephalic. EYES: SHAWNA, EOMI. NECK: trachea midline, no JVD present, no carotid bruits present. CARDIAC: S1, S2 present. RRR. No murmur, rubs, or gallops. RESPIRATORY: CTAB, no increased effort of breathing, no rales, rhonchi, or wheezing. ABDOMEN: soft, nontender, nondistended. EXTREMITIES: no lower extr (more content not included)... [facility] Progress note 05-15-2024 Note Date & Type Note Facility 05-15-2024 Note [facility] Note Reason for cardiology consult: Abnormal stress test Chief Complaint: Exertional dyspnea HPI: Alyssia Mendoza is a 54 y.o. female without past medical history, she has history of hypertension, hypercholesterolemia who could not tolerate one of the statins causing dizziness, no history of diabetes mellitus. She is a smoker 1 pack/day since she was 17-year-old. The patient states that she had dyspnea on exertion for at least 6 months started initially when she was climbing stairs however it has been getting worse over time. She denies chest discomfort at rest or with exertion. She denies orthopnea or paroxysmal nocturnal dyspnea or dizziness or legs edema or leg discomfort on exertion. Occasional palpitation in association with exertion therefore event monitor was ordered. She was referred for treadmill stress nuclear test at [facility] and it was reported that the nuclear portion was normal without evidence of ischemic defect with normal ejection fraction 81% but the EKG was reported to be abnormal. I reviewed the EKG portion of the stress test myself and my interpretation is mentioned under testing. Patient is a heavy smoker 1 pack/day since she was 17-year-old. She denies alcohol or illicit drugs. She also drinks a lot of caffeine about a pot a day but according to her she drinks enough water. The patient does not know her family medical history because she is adopted and she knows nothing about her biological parents Cardiology ROS: GENERAL: Denies fever, chills, night sweats, weight loss. HEENT: Denies changes in vision, photophobia, changes in hearing, epistaxis, oral bleeding. CARDIOVASCULAR: She reports significant exertional dyspnea which has been progressing over the last 6 months, denies chest pain, orthopnea/PND, lower extremity edema, palpitations, lightheadedness/dizziness. RESPIRATORY: She reports shortness of breath but denies coughing, wheezing GI: Denies abdominal pain, nausea/vomiting, heartburn, melena/hematochezia. RENAL: Denies dysuria, hematuria, flank pain. MSK: Denies muscle weakness/pain, arthralgias/joint pain. NEUROLOGIC: Denies LOC, weakness, numbness, headaches. SKIN: Denies abnormal rashes or bleeding. PSYCH: Denies significant anxiety, depression, sleep disturbances. Past Medical History She has a past medical history of GERD (gastroesophageal reflux disease), Hyperlipidemia, and Hypertension. Surgical History She has a past surgical history that includes Facial cosmetic surgery; Gallbladder surgery; and Knee surgery. Social History She reports that she has been smoking cigarettes. She has a 37.00 pack-year smoking history. She has never used smokeless tobacco. She reports that she does not drink alcohol and does not use drugs. Family History Family History Problem Relation Name Age of Onset No Known Problems Mother No Known Problems Father Allergies Patient has no known allergies. Medications Current Outpatient Medications: albuterol 90 mcg/actuation inhaler, Inhale 2 puffs every 4 (four) hours if needed., Disp: , Rfl: diclofenac (Voltaren) 75 mg EC tablet, Take 75 mg by mouth if needed in the morning and at bedtime., Disp: , Rfl: metoprolol tartrate (Lopressor) 25 mg tablet, Take 25 mg by mouth with breakfast and with evening meal., Disp: , Rfl: omeprazole (PriLOSEC) [address] capsule, TAKE ONE CAPSULE BY MOUTH DAILY 30 MINUTES BEFORE MORNING MEAL, Disp: , Rfl: ondansetron ODT (Zofran-ODT) 4 mg disintegrating tablet, PLACE ONE TABLET ON THE TONGUE AND ALLOW TO DISSOLVE EVERY 6 HOURS NEEDED FOR 30 DAYS, Disp: , Rfl: tiZANidine (Zanaflex) 4 mg tablet, Take 8 mg by mouth at bedtime., Disp: , Rfl: rosuvastatin (Crestor) 5 mg tablet, Take 1 tablet (5 mg) by mouth at bedtime., Disp: 90 tablet, Rfl: 3 Last Recorded Vitals Visit Vitals BP 101/70 (BP Location: Left arm, Patient Position: Sitting) Pulse 64 Ht 1.626 m (5' 4 ) Wt 67.1 kg (148 lb) SpO2 98% BMI 25.40 kg/m??? Smoking Status Every Day BSA 1.74 m??? Physical Examination: GENERAL: alert and oriented x3, well developed, in no acute distress. HEAD: atraumatic, normocephalic. EYES: SHAWNA, EOMI. NECK: trachea midline, no JVD present, no carotid bruits present. CARDIAC: S1, S2 present. RRR. No murmur, rubs, or gallops. RESPIRATORY: CTAB, no increased effort of breathing, no rales, rhonchi, or wheezing. ABDOMEN: soft, nontender, nondistended. EXTREMITIES: no lower extremity edema, peripheral pulses are 2+ bilaterally. No rash/skin discoloration present. NEURO: strength/sensation equal and symmetric in bilateral upper and lower extremities. PSYCH: appropriate mood, affect, and judgement. Labs: Labs 10/04/2023 White blood count 9.4, hemoglobin 15.5, hematocrit 47.4, at least 298 Sodium 140, potassium 4.5, BUN 24, creatinine 0.91, GFR above 60, glucose 92, calcium 9.2 HbA1c 5.5% Total biliru (more content not included)... [facility] Summary Purpose Family History No Family History Records FoundNo Family History Records FoundNo Family History Records FoundNo Family History Records Found Advance Directives No Advanced Directives Records FoundNo Advanced Directives Records FoundNo Advanced Directives Records FoundNo Advanced Directives Records Found Additional Source Comments INFORMATION SOURCE (unrecogn ized section and content) DATE CREATED AUTHOR 03/10/2018 [facility] DATE CREATED AUTHOR AUTHOR'S ORGANIZ ATION 04/04/2021 [facility] DATE CREATED AUTHOR AUTHOR'S ORGANIZ ATION 03/30/2023 [facility] DATE CREATED AUTHOR AUTHOR'S ORGANIZ ATION 10/08/2024 [facility] FOR RECORDS PERTAINING TO PATIENTS WHO [...] BE BASED ON THE PRIMARY CLINICAL RECORDS. [employer] provides no warranty or guarantee of the accuracy or completeness of information in this document.
[2024-10-13 09:56] LABS: Chol HDL Ratio 3.1; Cholesterol 131 mg/dL (<=200); HDL Cholesterol 42 mg/dL (40-60); LDL Cholesterol Calculated 77.4 mg/dL; Triglycerides 58 mg/dL (<=150); VLDL CHOLESTEROL 11.6 mg/dL
[2024-10-13 12:23] LABS: Alanine Aminotransferase 22 U/L (14-59); Aspartate Amino Transferase 19 U/L (15-37)
== END 2024-10-13 08:48 | disposition home or self-care (01) ==
LOC: LAB 08:49
PROVIDERS: PCP Family Medicine; Visit Provider Internal Medicine Cardiovascular Disease
DX: E78.5 Hyperlipidemia, unspecified (principal)
CPT/HCPCS: 36415; 80061; 84450; 84460

== ENCOUNTER 2025-04-05 09:43 | Outpatient (OUT) | payer MEDICAID, SELFPAY ==
--- OUTSIDE RECORDS SUMMARY | 2025-01-01 04:14 | XMS_ITS ---
Author Organization [facility] [place] Address [address] [place] [address] Care Team Providers Care Call Center Team Leader Name Role Phone LATA SHETH MD Primary Care Provider [phone] Lata Sheth Unavailable [phone] REASON FOR VISIT sick Medications Medication SIG (Take, Route, Fr equency, Duration) Notes Start Date End Date Status predniSONE 20 MG 2 tablets Orally Onc e a day for 5 days 01/01/2025 Active Cefdinir 300 MG 2 capsule Orally onc e a day for 10 days 11/24/2024 Active Benzonatate 200 MG 1 capsule Orally Thr ee times a day for 7 days 11/24/2024 Active Encounters Encounter Location Date Provider Diagnosis [facility] [address] [place] [address] 01/01/2025 Lata Sheth Acute bronchitis, unspecified organism J20.9 Assessments Encounter Date Diagnosis (ICD Code) Assessment Notes Treatment Notes Treatment Clinical Notes Section Notes 01/01/2025 Acute bronchitis, unspecified organism (ICD-10 - J20.9) Plan Of Treatment Medication Medication Name Sig Start Date Stop Date Notes predniSONE 20 MG 2 tablets Orally Once a day for 5 days Cefdinir 300 MG 2 capsule Orally once a day for 10 days Benzonatate 200 MG 1 capsule Orally Thr ee times a day for 7 days 11/24/2024 Progress Notes * Alyssia MENDOZA LDOB:1970 (54 yo F)Acc No.[id number]:01/01/2025 Patient: Davian KOMAL Alyssia Fairbanks :1970 A ge:54 Y S ex:Female Address:[address] [place] [address], [address] * Refills Refill Benzonatate Capsule, 200 MG, Orally, 20 Capsule, 1 capsule, Three times a day, 7 days Refill Cefdinir Capsule, 300 MG, Orally, 20 Capsule, 2 capsule, once a day, 10 days, Refills=0 Start predniSONE Tablet, 20 MG, Orally, 10 Tablet, 2 tablets, Once a day, 5 days * true * Date: Generated for Coco harman/Brandon/Michelleitting on: 0 04/05/2025 09:47 AM EDT
--- OUTSIDE RECORDS SUMMARY | 2025-03-05 06:15 | XMS_ITS ---
Author Organization [facility] in [place] Address [address] [place] [address] Care Team Providers Care Fisheries Specialist Name Role Phone LATA SHETH MD Primary Care Provider Lata Sheth Unavailable [phone] Allergies No Known Allergies REASON FOR VISIT Presents to office alone for boil near anus. Was draining but no longer. Said is the size of a golfball Medications Medication SIG (Take, Route, Frequency, Duration) Notes Start Date End Date Status Ventolin HFA 108 (90 Base) MCG/ACT 2 puff as needed Inhalation every 4 hrs 04/27/2024 Active Vitamin D3 50 MCG (1999 UT) 1 capsule Or ally Once a day Active Rosuvastatin Calcium 5 MG 1 tablet Orall y Once a day 11/24/2024 Active tiZANidine HCl 4 MG 2 tabs Orally qhs fo r 30 days 04/27/2024 Active Diclofenac Sodium 75 MG 1 tablet as need ed Orally Twice a day for 30 days 04/27/2024 Active Metoprolol Tartrate 25 MG 1 tablet with food Orally Twice a day for 30 days 08/12/2023 Active Omeprazole 40 MG 1 capsule 30 minutes before morning meal Orally Once a day for 90 days Active Ondansetron 4 MG 1 tablet on the tong ue and allow to dissolve Orally Q 6 hours PRN for 30 days 07/08/2023 Active Anoro Ellipta 62.5-25 MCG/ACT 1 puff Inhalation Once a day for 30 days 10/13/2024 Active Aspirin Adult 325 MG 1 tablet Orally Onc e a day for 30 day(s) 07/18/2023 Active Cefdinir 300 MG 2 capsule Orally onc e a day for 10 days 03/05/2025 Active Doxycycline Monohydrate 100 MG 1 capsule Orally bid for 10 days 03/05/2025 Active Social History Tobacco Use: Social History Observation Description Date Details (start date - stop date) Current Smoker NA - NA Tobacco Control (Standard) Question Answer Notes Tobacco use: Current every day smoker Additional Findings: Tobacco user Trivia l cigarette smoker (less than 1 cig/day) AUDIT-C (Standard) Question Answer Notes Did you have a drink containing alcohol in the p ast year? No Points 0 Interpretation Negative Vital Signs Weight 154.2 lbs 03/05/2025 Height 63 in 03/05/2025 Blood pressure systolic 120 mm Hg 03/05/20 Blood pressure diastolic 78 mm Hg 025 Temperature 99.3 degrees Fahrenheit 03/05/20 BMI 27.31 kg/m2 03/05/2025 Encounters Encounter Location Date Provider Diagnosis [facility] [address] [place] [address] 03/05/2025 Lata Sheth Boil of buttock L02. 32 Assessments Encounter Date Diagnosis (ICD Code) Assessment Notes Treatment Notes Treatment Clinical Notes Section Notes 03/05/2025 Boil of buttock (ICD-10 - L02.32) ifnot better byu mondya - set up [facility] drNIl Plan Of Treatment Medication Medication Name Sig Start Date Stop Date Notes Cefdinir 300 MG 2 capsule Orally onc e a day for 10 days 03/05/2025 Doxycycline Monohydrate 100 MG 1 capsule Orally bid for 10 days 03/05/2025 Treatment Notes Assessment Notes Boil of buttock ifnot better byu mon dya - set up [facility] drNIl Progress Notes * Alyssia MENDOZA LDOB:1970 (55 yo F)Acc No.[id number]:03/05/2025 Progress Note Patient: Alyssia CARPENTER Provider: Jenifer Sheth ([facility])MD :1970 A ge:55 Y S ex:Female Date:03/05/2025 Address:[address] [place], [place] [address] Pcp:LATA SHETH MD Check In:09:58 AM ESTCheck O ut:11:11 AM EST Subjective: * Chief Complaints: * P resents to office alone for boil near anus. Was draining but no longer. Said is the size of a golfball * HPI: G eneral: Betherer for 6 months -but recently getting worse. * Active Problem List J43.2 Centrilobular emphys avi Modified On:09/02/2024 Status:confirmed F17.219 Cigarette nicotine d ependence with nicotine-induced disorder Modified On:09/02/2024 Status:confirmed G89.29 Other chronic pain Modified On:03/27/2023 Status:confirmed M54.50 Low back pain, unspe cified Modified On:03/27/2023 Status:confirmed G47.00 Insomnia, unspecifie d Modified On:03/27/2023 Status:confirmed N93.8 Other specified abno rmal uterine and vaginal bleeding Modified On:03/27/2023 Status:confirmed N63.10 Unspecified lump in the right breast, unspecified quadrant Modified On:03/27/2023 Status:confirmed G43.909 Migraine, unspecifie d, not intractable, without status migrainosus Modified On:03/27/2023 Status:confirmed G37.9 Demyelinating diseas e of central nervous system, unspecified Modified On:03/27/2023 Status:confirmed Z20.5 Contact with and (garcia spected) exposure to viral hepatitis Modified On:03/27/2023 Status:confirmed G81.10 Spastic hemiplegia a ffecting unspecified side Modified On:03/27/2023 Status:confirmed 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 Modified On:03/27/2023 Status:confirmed L73.2 Hidradenitis suppura tiva Modified On:03/27/2023 Status:confirmed F41.9 Anxiety disorder, un specified Modified On:03/27/2023 Status:confirmed F32.A Depression, unspecif ied Modified On:03/27/2023 Status:confirmed F17.200 Nicotine dependence, unspecified, uncomplicated Modified On:03/28/2023/U Status:confirmed M62.81 Right sided weakness Modified On:07/18/2023/U Status:confirmed R07.9 Chest pain Modified On:08/21/2023/U Status:confirmed R20.2 Paresthesia Modified On:10/03/2023/U Status:confirmed M79.606 Leg pain Modified On:10/07/2023/U Status:confirmed E78.00 Pure hypercholestero lemia, unspecified Modified On:10/04/2023/U Status:confirmed J21.9 Acute bronchiolitis Modified On:11/04/2023/U Status:confirmed M54.12 Cervical radiculopat hy Modified On:04/27/2024/U Status:confirmed 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 1 son(s) . . Patient is Adopted. * Social History: T obacco Use: T obacco Control (Standard) T obacco use: C urrent every day smoker A dditional Findings: Tobacco user T rivial cigarette smoker (less than 1 cig/day) Electronic Cigarette use C urrent user N o LM: Additional Tobacco Questions N umber of Years Pt Smoked: 3 8 D rug/Alcohol: A THI-C (Standard) D id you have a drink containing alcohol in the past year? N o P oints 0 I nterpretation N egative * Medications: T akingAnoro Ellipta(Umeclidinium-Vilanterol) 62.5-25 MCG/ACT Aerosol Powder Breath Activated 1 puff Inhalation Once a day Aspirin Adult 325 MG Tablet 1 tablet Orally Once a day Diclofenac Sodium 75 MG Tablet Delayed Release 1 tablet as needed Orally Twice a day Metoprolol Tartrate 25 MG Tablet 1 tablet with food Orally Twice a day Omeprazole 40 MG Capsule Delayed Release 1 capsule 30 minutes before morning meal Orally Once a day Ondansetron 4 MG Tablet Disintegrating 1 tablet on the tongue and allow to dissolve Orally Q 6 hours PRN Rosuvastatin Calcium 5 MG Tablet 1 tablet Orally Once a day tiZANidine HCl 4 MG Tablet 2 tabs Orally qhs Ventolin HFA(Albuterol Sulfate HFA) 108 (90 Base) MCG/ACT Aerosol Solution 2 puff as needed Inhalation every 4 hrs Vitamin D3 50 MCG (2000 UT) Capsule 1 capsule Orally Once a day Taking Anoro Ellipta(Umeclidinium-Vilanterol) 62.5-25 MCG/ACT Aerosol Powder Breath Activated 1 puff Inhalation Once a day Taking Aspirin Adult 325 MG Tablet 1 tablet Orally Once a day Taking Diclofenac Sodium 75 MG Tablet Delayed Release 1 tablet as needed Orally Twice a day Taking Metoprolol Tartrate 25 MG Tablet 1 tablet with food Orally Twice a day Taking Omeprazole 40 MG Capsule Delayed Release 1 capsule 30 minutes before morning meal Orally Once a day Taking Ondansetron 4 MG Tablet Disintegrating 1 tablet on the tongue and allow to dissolve Orally Q 6 hours PRN Taking Rosuvastatin Calcium 5 MG Tablet 1 tablet Orally Once a day Taking tiZANidine HCl 4 MG Tablet 2 tabs Orally qhs Taking Ventolin HFA(Albuterol Sulfate HFA) 108 (90 Base) MCG/ACT Aerosol Solution 2 puff as needed Inhalation every 4 hrs Taking Vitamin D3 50 MCG (2000 UT) Capsule 1 capsule Orally Once a day DiscontinuedBenzonatate 200 MG Capsule 1 capsule Orally Three times a day Cefdinir 300 MG Capsule 2 capsule Orally once a day predniSONE 20 MG Tablet 2 tablets Orally Once a day Medication List reviewed and reconciled with the patientDiscontinued Benzonatate 200 MG Capsule 1 capsule Orally Three times a day Discontinued Cefdinir 300 MG Capsule 2 capsule Orally once a day Discontinued predniSONE 20 MG Tablet 2 tablets Orally Once a day Medication List reviewed and reconciled with the patient * Allergies: N .K.D.A.no[Allergies Verified] Objective: * Vitals: W t:154.2lbs, Ht: 63 in, BP:120/78mm Hg, Temp:99.3F, BMI:27.31Index, Wt-k.94 kg. * Examination: A bdomen Exam:: P erirecatl area - with boil - phil not look close enough tothe sureface to jo. Assessment: * Assessment: 1. B oil of buttock - L02.32 (Primary) Plan: * Treatment: * Procedure Codes: * Preventive Medicine: Screenings/Counseling: B HI ACTION PLAN Above Normal BMI Follow-up D ietary management education, guidance, and counseling See treatment section of progress note for complete details of management plan. T OBACCO ACTION PLAN Patient counselled on the dangers of tobacco use and urged to quit. 0 03/05/2025 . * * Sign off status: Completed Visit Status: C HK (Check Out) true * Provider: Jenifer Sheth ([facility])MD Date: 0 03/05/2025 Generated for Printi ng/Brandon/eTransmitting on: 0 04/05/2025 09:46 AM EDT History and Physical Notes * HPI (History of Present Illness) Category Sub-Category Detail Notes Category Not es General Betherer for 6 months -but recently getting worse Examination Category Sub-Category Detail Notes Category Not es Abdomen Exam: Perirecatl are a - with boil - phil not look close enough tothe sureface to jo
--- OUTSIDE RECORDS SUMMARY | 2025-03-08 05:50 | XMS_ITS ---
Author Organization [facility] in [place] Address [address] [place] [address] Care Team Providers Care Glass Carrier Name Role Phone LATA SHETH MD Primary Care Provider [phone] Lata Sheth Unavailable [phone] Reason For Referral Diagnosis 1 Boil of buttock (L02 .32) Referral Organization [facility] Referring Provider First Name Lata Referring Provider Last Name Meryl Referring Provider Speciality Family Med johnny Referred Provider Paulie Mares Referred Provider Specialty General Surg cora Referral Priority Routine REASON FOR VISIT Boil not better Encounters Encounter Location Date Provider Diagnosis [facility] [address] [place] [address] 03/08/2025 Lata Homuna Boil of buttock L02. 32 Assessments Encounter Date Diagnosis (ICD Code) Assessment Notes Treatment Notes Treatment Clinical Notes Section Notes 03/08/2025 Boil of buttock (ICD-10 - L02.32) Plan Of Treatment Referrals Referral Date Details 03/08/2025 03/08/2025, Paulie Mares Progress Notes * REJI Alyssia LDOB:1970 (55 yo F)Acc No.[id number]:03/08/2025 Patient: Alyssia CARPENTER :1970 A ge:55 Y S ex:Female Address:[address] [place] [address], [address] Subjective: * Chief Complaints: * B oil not better * Medical History: * Surgical History: * Hospitalization/Major Diagno stic Procedure: * Medications: Objective: * Vitals: * Physical Examination: Assessment: * Assessment: 1. B oil of buttock - L02.32 (Primary) Plan: * Treatment: * Procedure Codes: * true * Date: Generated for Coco harman/Brandon/Gricelda on: 0 04/05/2025 09:46 AM EDT Consultation Request Notes Referral Date Referring Provider Referred Provider Not es 03/08/2025 Lata Sheth Michael
--- OUTSIDE RECORDS SUMMARY | 2025-03-16 12:15 | XMS_ITS ---
Author Organization [facility] Address [address] [place] [address] Care Team Providers Care Plate Cleaner Name Role Phone Bernardino Murdock Primary Care Provider Skylar Cruz Unavailable [phone] Sherlyn Means Unavailable [phone] REASON FOR VISIT PERIO CHART Encounters Encounter Location Date Provider Diagnosis [facility] [address] [place] [address] 03/16/2025 Sherlyn Means Plan Of Treatment Next Appt Details Provider Name:Abdulkadir Lainez, 0 04/10/2025 12:00:00 PM, [address] [place], [address], Provider Name:Skylar Leonard, 07/09/2025 10:45:00 AM, [address] [place], [address], Provider Name:Skylar Leonard, 07/13/2025 09:45:00 AM, [address] [place], [address], Provider Name:Skylar Leonard, 07/16/2025 02:35:00 PM, [address] [place], [address], Provider Name:Skylar Leonard, 07/19/2025 08:00:00 AM, [facility] [place], [address], Progress Notes * TIGRE MENDOZA LDOB:1970 (55 yo F)Acc No.[id number]:03/16/2025 Patient: TIGRE CARPENTER Provider: Ese Good :1970 A ge:55 Y S ex:Female Date:03/16/2025 Address:[address] [place], [place] [address] Pcp:Bernardino Murdock Subjective: * Chief Complaints: * 1 . PERIO CHART. * Medical History: Objective: * Vitals: Assessment: Plan: * Treatment: * Images: * Electronic signature of Stephanie Means on 04/05/2025 at 09:47 AM EDT Sign off status: Pending * Provider: Ese Good Date: 03/16/2025 Generated for Coco harman/Brandon/eTsadiesmitting on: 04/05/2025 09:47 AM EDT
--- OUTSIDE RECORDS SUMMARY | 2025-04-05 09:46 | XMS_ITS | Patient Health Record ---
Author Organization [facility] Address [address] [place] [place] [address] Care Team Providers Care Roof Truss Builder Name Role Phone Collette Bernardino Primary Care Provider [phone] Skylar Cruz Unavailable Loly Trejo Unavailable [phone] Sherlyn Means Unavailable [phone] Reason For Referral No Information Medications Medication SIG (Take, Route, Fr equency, Duration) Notes Start Date End Date Status Omeprazole Unknown Ibuprofen 800 MG 1 tablet with food o r milk as needed Orally Three times a day 06/24/2024 Unknown Ibuprofen 800 MG 1 tablet with food o r milk as needed Orally Three times a day 04/25/2023 Unknown Ibuprofen 800 MG 1 tablet with food o r milk as needed Orally Three times a day 10/02/2024 Active Encounters Encounter Location Date Provider Diagnosis [facility] [address] [address] 10/15/2024 Skylar Leonard [facility] [address] [place] [address] 10/09/2024 Skylar Leonard Necrosis of pulp 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 ; Dental caries on pit and fissure surface penetrating into dentin K02.52 ; Cracked tooth K03.81 ; Encounter for dental examination and cleaning with abnormal findings Z01.21 and Other dental procedure status Z98.818 [facility] [address] [place] [address] 06/24/2024 Skylar Los Leonard Cracked tooth K03.81 [place] [place] [address] 11/27/2024 Sklyar Los Leonard Dental caries on pit and fissure surface penetrating into dentin K02.52 [address] [place] [address] 12/04/2024 Skylar Los Leonard Dental caries on pit and fissure surface penetrating into dentin K02.52 [address] [address] [address] [place] [place] [address] 03/02/2025 Skylar Los Leonard Dental caries on pit and fissure surface penetrating into dentin K02.52 and Other dental procedure status Z98.818 [address] [place] [address] 11/19/2024 Skylar Los Leonard Dental caries on pit and fissure surface penetrating into dentin K02.52 [address] [place] [address] 10/02/2024 Skylar Los Leonard Cracked tooth K03.81 and Partial loss of teeth, unspecified cause, class I K08.401 [address] [address] [place] [address] 03/03/2025 Skylar Los Leonard Cracked tooth K03.81 and Dental caries on pit and fissure surface penetrating into dentin K02.[address] [place] [address] 11/10/2024 Skylar Los Leonard Assessments Encounter Date Diagnosis (ICD Code) Assessment Notes Treatment Notes Treatment Clinical Notes Section Notes 06/24/2024 Cracked tooth (ICD-10 - K03.81) 10/02/2024 Cracked tooth (ICD-10 - K03.81) 11/19/2024 Dental caries on pit and fissure surface penetrating into dentin (ICD-10 - K02.52) 11/27/2024 Dental caries on pit and fissure surface penetrating into dentin (ICD-10 - K02.52) 12/04/2024 Dental caries on pit and fissure surface penetrating into dentin (ICD-10 - K02.52) 03/02/2025 Dental caries on pit and fissure surface penetrating into dentin (ICD-10 - K02.52) 10/09/2024 Necrosis of pulp (ICD-10 - K04.1) 03/03/2025 Cracked tooth (ICD-10 - K03.81) 03/02/2025 Other dental procedure status (ICD-10 - Z98.818) 03/03/2025 Dental caries on pit and fissure surface penetrating into dentin (ICD-10 - K02.52) 10/02/2024 Partial loss of teeth, unspecified cause, class I (ICD-10 - K08.401) 10/09/2024 Dental caries on pit and fissure surface penetrating into dentin (ICD-10 - K02.52) 10/09/2024 Cracked tooth (ICD-10 - K03.81) 10/09/2024 Encounter for dental examination and cleaning with abnormal findings (ICD-10 - Z01.21) 10/09/2024 Other dental procedure status (ICD-10 - Z98.818) Plan Of Treatment Next Appt Details Provider Name:Abdulkadir Fatou, 0 04/10/2025 12:00:00 PM, [address], [place], [address], Provider Name:Skylar Leonard, 07/09/2025 10:45:00 AM, [address], [place], [address], Provider Name:Skylar Leonard, 07/13/2025 09:45:00 AM, [address], [place], [address], Provider Name:Skylar Leonard, 07/16/2025 02:35:00 PM, [address], [place], [address], Provider Name:Skylar Leonard, 07/19/2025 08:00:00 AM, [address], [place], [address], Insurance Providers Payer Name Payer Address Payer Phone Subscriber Number Group Number Insured Name Patient Relationship to Insured Coverage Start Date Coverage End Date Dental [employer] DQ [address] [address] [place] [address] [id number] TIGRE MENDOZA Self - patient is the insured 3 [employer] [facility] [employer] [address] [place] [address] [phone] [id number] TIGRE MENDOZA Self - patient is the insured 3
--- OUTSIDE RECORDS SUMMARY | 2025-04-05 09:46 | XMS_ITS | Patient Health Record ---
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 Name Role Phone LATA SHETH MD Primary Care Provider DanielLilian martinezhan Unavailable [phone] Lata Sheth Unavailable [phone] Allergies No Known Allergies Results Component Value Reference Range Notes CT Chest Low Dose for Screen ing* Reviewed date:09/17/2024 11:05:37 AM Interpretation: Performing Lab: Notes/Report: cervical spine wo con Reviewed date:05/12/2024 04:08:16 PM Interpretation: Performing Lab: Notes/Report: Source Facility: [place] [address] Magnetic Resonance Report Signed Patient: ALYSSIA MENDOZA MR#: [id number] : 1970 Acct:[id number] Age/Sex: 54 / F ADM Date: 05/12/24 Loc: [place] Attending Dr: Shoshana Sheth M.D. Ordering Physician: Shoshana Sheth M.D. Date of Service: 05/12/24 Procedure(s): MR cervical spine wo con Accession Number(s): [id number] cc: Shoshana Sheth M.D. [place] [address] Patient Name: ALYSSIA MENDOZA MRN: [id number] date: 1970 Sex: F Assigned Patient Location: NM Current Patient Location: NM Accession/Order Number: [id number] Exam Date: 05/12/2024 07:27 Report Date: 05/12/2024 12:50 At the request of: SHOSHANA SHETH Procedure: MR cervical spine wo con EXAM: MR cervical spine wo con REASON FOR EXAM: MIGRAINE, UNSPECIFIED, CERVICAL RADICULOPATHY. TECHNIQUE: Multiplanar, multisequence imaging of the cervical spine was performed without contrast COMPARISON: Radiographs 04/27/2024. FINDINGS: Study mildly degraded by motion large [id number]. Limited evaluation the posterior fossa is unremarkable. Mild low-lying cerebellar tonsils. The visualized spinal cord demonstrates normal caliber and signal. Overall straightening normal cervical lordosis. Vertebral body heights and facet alignments are maintained. Modic type changes are present at the C4-C5 and C5-C6 levels. No acute or aggressive osseous abnormality is evident. Limited evaluation of the paravertebral soft tissues is unremarkable. C2-C3: No focal disc herniation identified. No spinal canal or neural foraminal stenosis. C3-C4: Minimal broad-based disc bulge without spinal canal or neural foraminal stenosis. C4-C5: Mild broad-based disc bulge without spinal canal stenosis. Moderate bilateral neural foraminal stenosis secondary to disc osteophyte complex, uncovertebral degeneration and facet arthropathy. C5-C6: Broad-based disc bulge with mild spinal canal stenosis. Moderate bilateral neural foraminal stenosis, left greater than right secondary to disc osteophyte complex, uncovertebral degeneration and facet arthropathy. C6-C7: Mild broad-based disc bulge without spinal canal stenosis. Mild left neural foraminal stenosis secondary to uncovertebral degeneration and facet arthropathy. C7-T1: No focal disc herniation identified. No spinal canal or neural foraminal stenosis. Limited evaluation of the upper thoracic spine is without focal large disc herniation, spinal canal or neural foraminal stenosis. MR/MR cervical spine wo con IMPRESSION: 1. Mild to moderate multilevel degenerative disc disease and facet arthropathy, most notable at the C4-C5 and C5-C6 levels as described above. Electronically authenticated by: FADY HART Date: 05/12/2024 12:50 Dictated By: Fady Hart M.D. Signed By: 05/12/24 1251 DD/ 1250 TD/TT: Wet Wheeler: [facility] [place] [id number] Magnetic Resonance Report Signed Patient: ALYSSIA MENDOZA MR#: [id number] : 1970 Acct:[id number] Age/Sex: 54 / F ADM Date: 05/12/24 Loc: [place] Attending Dr: Reinier Sheth M.D. Ordering Physician: Shoshana Sheth M.D. Date of Service: 05/12/24 Procedure(s): MR cervical spine wo con Accession Number(s): [id number] cc: Shoshana Sheth M.D. [place] [id number] Patient Name: ALYSSIA MENDOZA MRN: [id number] date: 1970 Sex: F Assigned Patient Location: [place] Current Patient Location: [place] Accession/Order Numb er: [id number] Exam Date: 05/12/2024 07:27 Report Date: 05/12/2024 12:50 At the request of: SHOSHANA SHETH Procedure: MR cervi saundra spine wo con EXAM: MR cervical sp ine wo con REASON FOR EXAM: MIGRAINE, UNSPECIFIED, CERVICAL RADICULOPATHY. TECHNIQUE: Multiplan ar, multisequence imaging of the cervical spine was performed without contrast COMPARISON: [facility] 04/27/2024. FINDINGS: Study mildly degrade d by motion large [id number]. Limited evaluation t he posterior fossa is unremarkable. Mild low-lying cerebellar tonsils. The visualized spinal cord demonstrates normal caliber and signal. Overall straightenin g normal cervical lordosis. Vertebral body heights and facet alignments are maintained. Modic type changes are present at the C4-C5 and C5-C6 levels. No acute or aggressive osseous abnormality is evident. Limited evaluation o f the paravertebral soft tissues is unremarkable. C2-C3: No focal disc herniation identified. No spinal canal or neural foraminal stenosis. C3-C4: Minimal broad-based disc bulge without spinal canal or neural foraminal stenosis. C4-C5: Mild broad-ba sed disc bulge without spinal canal stenosis. Moderate bilateral neural foraminal stenosis secondary to disc osteophyte complex, uncovertebral degeneration and facet arthropathy. C5-C6: Broad-based d isc bulge with mild spinal canal stenosis. Moderate bilateral neural foraminal stenosis, left greater than right secondary to disc osteophyte complex, uncovertebral degeneration and facet arthropathy. C6-C7: Mild broad-ba sed disc bulge without spinal canal stenosis. Mild left neural foraminal stenosis secondary to uncovertebral degeneration and facet arthropathy. C7-T1: No focal disc herniation identified. No spinal canal or neural foraminal stenosis. Limited evaluation o f the upper thoracic spine is without focal large disc herniation, spinal c anal or neural foraminal stenosis. M R/MR cervical spine wo con IMPRESSION: 1. Mild to moderate multilevel degenerative disc disease and facet arthropathy, most notable at the C4-C5 and C5-C6 levels as described above. Electronically authenticated by: FADY HART Date: 05/12/2024 12:50 Dictated By: Fady Hart M.D. Signed By: 05/12/24 1252 DD/ 1250 TD/TT: Wet Wheeler: XR chest 2V Reviewed date:05/12/2024 04:08:16 PM Interpretation: Performing Lab: Notes/Report: Source Facility: [place] [address] XRay Report Signed Patient: ALYSSIA MENDOZA MR#: [id number] : 1970 Acct:[id number] Age/Sex: 54 / F ADM Date: 05/12/24 Loc: [place] Attending Dr: Shoshana Sheth M.D. Ordering Physician: Shoshana Sheth M.D. Date of Service: 05/12/24 Procedure(s): XR chest 2V Accession Number(s): [id number] cc: Shoshana Sheth M.D. [place] [address] Patient Name: ALYSSIA MENDOZA MRN: [id number] date: 1970 Sex: F Assigned Patient Location: [place] Current Patient Location: [place] Accession/Order Number: [id number] Exam Date: 05/12/2024 10:35 Report Date: 05/12/2024 12:50 At the request of: SHOSHANA SHETH Procedure: XR chest 2V EXAM: XR chest 2V REASON FOR EXAM: CHEST PAIN. TECHNIQUE: Two-view chest. COMPARISON: 07/17/2023. FINDINGS: Lungs are clear. Heart size is normal. No pleural effusion or pneumothorax. Osseous structures are without acute abnormality. XR/XR chest 2V IMPRESSION: No active disease in the chest Electronically authenticated by: FADY HART Date: 05/12/2024 12:50 Dictated By: Fady Hart M.D. Signed By: 05/12/241252 DD/ 49 TD/TT: Wet Wheeler: [place] [address] XRay Report Signed Patient: ALYSSIA MENDOZA MR#: [id number] : 1970 Acct:[id number] Age/Sex: 54 / F ADM Date: 05/12/24 Loc: [place] Attending Dr: Reinier Sheth M.D. Ordering Physician: Shoshana Sheth M.D. Date of Service: 05/12/24 Procedure(s): XR rea st 2V Accession Number(s): [id number] cc: Shoshana Sheth M.D. [place] [address] Patient Name: ALYSSIA MENDOZA MRN: [id number] date: 1970 Sex: F Assigned Patient Location: [place] Current Patient Location: [place] Accession/Order Numb er: [id number] Exam Date: 05/12/2024 10:35 Report Date: 05/12/2024 12:50 At the request of: SHOSHANA SHETH Procedure: XR chest 2V EXAM: XR chest 2V REASON FOR EXAM: REA ST PAIN. TECHNIQUE: Two-view chest. COMPARISON: 07/17/2023. FINDINGS: Lungs are clear. Heart size is normal. No pleural effusion or pneumothorax. Osseou s structures are without acute abnormality. X R/XR chest 2V IMPRESSION: No active disease in the chest Electronically authenticated by: FADY HART Date: 05/12/2024 12:50 Dictated By: Fady Hart M.D. Signed By: 05/12/241252 DD/ 49 TD/TT: Wet Wheeler: XR cervical spine 2-3V Reviewed date:04/29/2024 07:59:35 PM Interpretation: Performing Lab: Notes/Report: Source Facility: [place] [address] [place] [address] XRay Report Signed Patient: ALYSSIA MENDOZA MR#: [id number] : 1970 Acct:[id number] Age/Sex: 54 / F ADM Date: 04/27/24 Loc: LAB Attending Dr: Shoshana Sheth M.D. Ordering Physician: Shoshana Sheth M.D. Date of Service: 04/27/24 Procedure(s): XR cervical spine 2-3V Accession Number(s): [id number] cc: Shoshana Sheth M.D. [place] [address] Patient Name: ALYSSIA MENDOZA MRN: [id number] date: 1970 Sex: F Assigned Patient Location: LAB Current Patient Location: Accession/Order Number: [id number] Exam Date: 04/27/2024 12:13 Report Date: 04/29/2024 06:54 At the request of: SHOSHANA SHETH Procedure: XR cervical spine 2-3V EXAMINATION: XR cervical spine 2-3V HISTORY: Migraine Unspecified, Cervical Radiculopathy M54.12 COMPARISON: No relevant comparison available. FINDINGS: BONES: Reversal normal lordotic curvature and mild left convex curvature. Grade 1 retrolisthesis of C4-C5 and C5 on C6. No significant facet arthropathy. DISC SPACES: Moderate narrowing C4-C5, C5-C6. PARASPINOUS: Negative. No paraspinous abnormality is seen. OTHER: Negative. XR/XR cervical spine 2-3V IMPRESSION: 1. Grade 1 retrolisthesis and moderate-marked degenerative disc disease C4-C5 and C5-C6. Electronically authenticated by: MYLES RAMIREZ Date: 04/29/2024 06:54 Dictated By: Myles Ramirez M.D. Signed By: 04/29/24 0656 DD/ TD/TT: Wet Wheeler: The [address] [address] XRay Report Signed Patient: ALYSSIA MENDOZA MR#: [id number] : 1970 Acct:[id number] Age/Sex: 54 / F ADM Date: 04/27/24 Loc: LAB Attending Dr: Reinier Sheth M.D. Ordering Physician: Shoshana Sheth M.D. Date of Service: 04/27/24 Procedure(s): XR cervical spine 2-3V Accession Number(s): [id number] cc: Shoshana Sheth M.D. The [place] [address] Patient Name: ALYSSIA MENDOZA MRN: [id number] date: 1970 Sex: F Assigned Patient Location: LAB Current Patient Location: Accession/Order Numb er: [id number] Exam Date: 04/27/2024 12:13 Report Date: 04/29/2024 06:54 At the request of: SHOSHANA SHETH Procedure: XR cervic al spine 2-3V EXAMINATION: XR cerv ical spine 2-3V HISTORY: Migraine Unspecified, Cervical Radiculopathy M54.12 COMPARISON: No relev ant comparison available. FINDINGS: BONES: Reversal norm al lordotic curvature and mild left convex curvature. Grade 1 retrolisthesis of C4-C5 and C5 on C6. No significant facet arthropathy. DISC SPACES: Moderat e narrowing C4-C5, C5-C6. PARASPINOUS: Negativ e. No paraspinous abnormality is seen. OTHER: Negative. X R/XR cervical spine 2-3V IMPRESSION: 1. Grade 1 retrolisthesis and moderate-marked degenerative disc disease C4-C5 and C5-C6. Electronically authenticated by: MYLES RAMIREZ Date: 04/29/2024 06:54 Dictated By: Myles Ramirez M.D. Signed By: 04/29/24 0656 DD/ TD/TT: Wet Wheeler: LIPID PROFILE Reviewed date:10/13/2024 04:54:44 PM Interpretation: Performing Lab: Notes/Report: [facility] , Triglycerides 58 <=150 mg/dL Cholesterol 131 <=200 mg/dL HDL Cholesterol 42 40-60 mg/dL > or =60 mg/dl - LOW CARDIOVASCULAR RISK <40 mg/dl - HIGH CARDIOVASCULAR RISK LDL Cholesterol Calculated 77.4 100-129 mg/dl NEAR OR ABOVE OPTIMAL 160-189 mg/dl HIGH 130-159 mg/dl BORDERLINE HIGH <100 mg/dl OPTIMAL >190 mg/dl VERY HIGH VLDL CHOLESTEROL 11.6 Chol HDL Ratio 3.1 7.1 - 11.0 MODERATE RISK 4.4 - 7.1 AVERAGE RISK >11.0 HIGH RISK 3.3 - 4.4 LOW RISK Performing Lab: see note ML - [facility] CA echo doppler complete Reviewed date:06/04/2024 04:48:35 PM Interpretation: Performing Lab: Notes/Report: Source Facility: [place] [address] Cardiology Report Signed Patient: ALYSSIA MENDOZA MR#: [id number] : 1970 Acct:[id number] Age/Sex: 54 / F ADM Date: 06/02/24 Loc: CARD Attending Dr: Mita Mcnulty M.D. Ordering Physician: Mita Mcnulty M.D. Date of Service: 06/02/24 Procedure(s): CA echo doppler complete Accession Number(s): [id number] cc: Shoshana Sheth M.D.; Mita Mcnulty M.D. Patient Name: ALYSSIA MENDOZA MR#: [id number] : 1970 Exam Date: 06/02/2024 Ordering Doctor: DR. MITA MCNULTY M.D. ECHOCARDIOGRAM REPORT PROCEDURE: CA ECHO DOPPLER COMPLETE INDICATIONS: FRANCO COMPARISON: None. DESCRIPTION: COMPLETE ECHOCARDIOGRAM Real-time transthoracic echocardiography with 2D, M-mode, spectral and color flow Doppler performed. QUALITY: Technical quality was good. LEFT VENTRICLE: Normal chamber size. Normal left ventricular wall thickness. LV EF: Global left ventricular systolic function is normal. Calculated left ventricular ejection fraction is 62%. No significant wall motion abnormalities. DIASTOLIC: Normal diastolic function. ATRIAL SEPTUM: Inadequately seen. LEFT ATRIUM: Normal chamber size. RIGHT ATRIUM: Normal chamber size. RIGHT VENTRICLE: Normal chamber size. Normal right ventricular systolic function. TRICUSPID VALVE: Normal mobility and thickness. No stenosis with trivial regurgitation. No evidence of pulmonary hypertension. RVSP 30mmHg MITRAL VALVE: Normal mobility and thickness. No evidence of mitral valve stenosis. Mild mitral annular calcification. Trivial mitral regurgitation. AORTIC VALVE: Normal trileaflet appearance. Thickened aortic valve. Normal leaflet mobility. No evidence of aortic valve stenosis. Trivial aortic regurgitation. AORTIC ROOT: Normal diameter and appearance. PULMONIC VALVE: Normal thickness and mobility. No stenosis. Trivial regurgitation. PERICARDIUM: No evidence of pericardial effusion. IVC: Collapses with inspirations. Normal size. CONCLUSION: 1. Global left ventricular systolic function is normal; visually estimated ejection fraction is 60 to 65% 2. Normal right ventricular size and systolic function 3. Normal diastolic function 4. The left atrium is normal in size 5. No significant valvular abnormalities Adult Echocardiography Procedure Report Left Ventricle LVEDD (3.7 - 5.6 cm): 3.82 cm LVESD (2.2 - 4.0 cm): 2.61 cm LVIVS thickness (0.6 - 1.2 cm): 1.05 cm LVPW thickness (0.5 - 1.0 cm): 0.82 cm e': 0.12 m/s E - e': 8.88 LVOT Max Gradient: 2.93 mm[Hg] LVOT Area (cm2): 0.86 m/s Peak Velocity (LVOT): 0.86 m/s Mean Velocity (LVOT): 0.58 m/s LVOT Diameter 1.96 cm Left Ventricular Ejection Fraction: 61.56 % Left Atrium LA Volume Index (2D A2C): 30.91 ml/m2 Left Atrium Systolic Dimension: 3.34 cm Mitral Valve MV E to A Ratio: 1.90, 2.38 Mitral Valve A-Wave Peak Velocity: 0.52 m/s Mitral Valve E-Wave Peak Velocity: 1.09 m/s Right Ventricle RV Internal Diastolic Dimension: 3.79 cm Aorta AO Root Diam: 2.89 cm Ascending Ao Diam: 2.83 cm Aortic Valve AoV Area (Peak Rowdy): 2.13 cm2, 2.23 cm2 AoV Area (VTI): 1.93 cm2, 2.08 cm2 Peak Velocity(Antegrade Flow): 1.16 m/s, 1.26 m/s Peak Gradient(Antegrade Flow): 5.38 mm[Hg], 6.39 mm[Hg] Mean Velocity(Antegrade Flow): 0.78 m/s, 0.86 m/s Mean Gradient(Antegrade Flow): 2.80 mm[Hg], 3.40 mm[Hg] Velocity Time Integral: 28.70 cm, 33.32 cm Tricuspid Valve Peak Velocity (Regurgitant Flow): 2.61 m/s, 2.27 m/s, 2.51 m/s Pulmonic Valve Mean Gradient: 2.11 mm[Hg] Mean Velocity: 0.69 m/s Peak Velocity: 0.94 m/s, 0.87 m/s Peak Gradient: 3.05 mm[Hg], 3.51 mm[Hg] Right Atrium Right Atrium Systolic Pressure: 59.29 ml, 59.29 ml Dictated by: Adalberto Pond M.D. on 06/04/2024 at 16:38 Approved by: Adalberto Pond M.D. on 06/04/2024 at 16:41 Dictated By: Adalberto Pond M.D. Signed By: 06/04/241642 DD/ 41 TD/TT: Wet Wheeler: [place] [address] Cardiology Report Signed Patient: ALYSSIA MENDOZA MR#: [id number] : 1970 Acct:[id number] Age/Sex: 54 / F ADM Date: 06/02/24 Loc: CARD Attending Dr: Mita Mcnulty M.D. Ordering Physician: Mita Mcnulty M.D. Date of Service: 06/02/24 Procedure(s): CA ech o doppler complete Accession Number(s): [id number] cc: Shoshana Sheth M.D. ; Mita Mcnulty M.D. Patient Name: ALYSSIA MENDOZA MR#: [id number] : 1970 Exam Date: 06/02/2024 Ordering Doctor: DR. MITA MCNULTY M.D. ECHOCARDIOGRAM REPORT PROCEDURE: CA ECHO DOPPLER COMPLETE INDICATIONS: FRANCO COMPARISON: None. DESCRIPTION: COMPLET E ECHOCARDIOGRAM Real-time transthoracic echocardiography wit h 2D, M-mode, spectral and color flow Doppler performed. QUALITY: Technical quality was good. LEFT VENTRICLE: Norm al chamber size. Normal left ventricular wall thickness. LV EF: Global left ventricular systolic function is normal. Calculated left ventricular ejection fraction is 62%. No significant wall motion abnormalities. DIASTOLIC: Normal diastolic function. ATRIAL SEPTUM: Inadequately seen. LEFT ATRIUM: Normal chamber size. RIGHT ATRIUM: Normal chamber size. RIGHT VENTRICLE: Nor mal chamber size. Normal right ventricular systolic function. TRICUSPID VALVE: Nor mal mobility and thickness. No stenosis with trivial regurgitation. No evidence of pulmonary hypertension. RVSP 30mmHg MITRAL VALVE: Normal mobility and thickness. No evidence of mitral valve stenosis. Mild anton l annular calcification. Trivial mitral regurgitation. AORTIC VALVE: Normal trileaflet appearance. Thickened aortic valve. Normal leaflet mobil ity. No evidence of aortic valve stenosis. Trivial aortic regurgitation. AORTIC ROOT: Normal diameter and appearance. PULMONIC VALVE: Norm al thickness and mobility. No stenosis. Trivial regurgitation. PERICARDIUM: No evid ence of pericardial effusion. IVC: Collapses with inspirations. Normal size. CONCLUSION: 1. Global left ventricular systolic function is normal; visually estimated ejection fraction is 60 to 65% 2. Normal right ventricular size and systolic function 3. Normal diastolic function 4. The left atrium i s normal in size 5. No significant valvular abnormalities Adult Echocardiograp hy Procedure Report Left Ventricle LVEDD (3.7 - 5.6 cm) : 3.82 cm LVESD (2.2 - 4.0 cm) : 2.61 cm LVIVS thickness (0.6 - 1.2 cm): 1.05 cm LVPW thickness (0.5 - 1.0 cm): 0.82 cm e': 0.12 m/s E - e': 8.88 LVOT Max Gradient: 2 .93 mm[Hg] LVOT Area (cm2): 0.8 6 m/s Peak Velocity (LVOT) : 0.86 m/s Mean Velocity (LVOT) : 0.58 m/s LVOT Diameter 1.96 cm Left Ventricular Ejection Fraction: 61.56 % Left Atrium LA Volume Index (2D A2C): 30.91 ml/m2 Left Atrium Systolic Dimension: 3.34 cm Mitral Valve MV E to A Ratio: 1.9 0, 2.38 Mitral Valve A-Wave Peak Velocity: 0.52 m/s Mitral Valve E-Wave Peak Velocity: 1.09 m/s Right Ventricle RV Internal Diastoli c Dimension: 3.79 cm Aorta AO Root Diam: 2.89 cm Ascending Ao Diam: 2 .83 cm Aortic Valve AoV Area (Peak Rowdy): 2.13 cm2, 2.23 cm2 AoV Area (VTI): 1.93 cm2, 2.08 cm2 Peak Velocity(Antegr blaire Flow): 1.16 m/s, 1.26 m/s Peak Gradient(Antegr blaire Flow): 5.38 mm[Hg], 6.39 mm[Hg] Mean Velocity(Antegr blaire Flow): 0.78 m/s, 0.86 m/s Mean Gradient(Antegr blaire Flow): 2.80 mm[Hg], 3.40 mm[Hg] Velocity Time Integr al: 28.70 cm, 33.32 cm Tricuspid Valve Peak Velocity (Regurgitant Flow): 2.61 m/s, 2.27 m/s, 2.51 m/s Pulmonic Valve Mean Gradient: 2.11 mm[Hg] Mean Velocity: 0.69 m/s Peak Velocity: 0.94 m/s, 0.87 m/s Peak Gradient: 3.05 mm[Hg], 3.51 mm[Hg] Right Atrium Right Atrium Systoli c Pressure: 59.29 ml, 59.29 ml Dictated by: Adalberto Pond M.D. on 06/04/2024 at 16:38 Approved by: Adalberto Pond M.D. on 06/04/2024 at 16:41 Dictated By: Adalberto Pond M.D. Signed By: 06/04/241642 DD/ 41 TD/TT: Wet Wheeler: HEMOGLOBIN Reviewed date:06/02/2024 02:24:37 PM Interpretation: Performing Lab: Notes/Report: [facility] , Hemoglobin 14.9 12.0-16.0 g/dL Performing Lab: see note ML - [facility] NM josh perf SPECT rest str Reviewed date:05/13/2024 12:39:40 PM Interpretation: Performing Lab: Notes/Report: Source Facility: [facility] [place] [address] [place] [id number] Nuclear Medicine Report Signed Patient: ALYSSIA MENDOZA MR#: [id number] : 1970 Acct:[id number] Age/Sex: 54 / F ADM Date: 05/12/24 Loc: [place] Attending Dr: Shoshana Sheth M.D. Ordering Physician: Shoshana Sheth M.D. Date of Service: 05/12/24 Procedure(s): NM josh perf SPECT rest str Accession Number(s): [id number] cc: Shoshana Sheth M.D. Patient Name: ALYSSIA MENDOZA MR#: [id number] : 1970 Exam Date: 05/12/2024 Ordering Doctor: DR Shoshana Sheth . RADIOLOGY REPORT PROCEDURE: NM JOSH PERF SPECT REST STR COMPARISON: None. INDICATIONS: CHEST PAIN, OTHER ABNORMALITIES OF HEART BEAT, TACHYCARDIA TECHNIQUE: Exam Description: Stress/Rest one day protocol gated SPECT Rest Imagin.2 mCi Tc-99m Cardiolite IV on 05/12/2024 Stress Imaging 30.3 mCi Tc-99m Cardiolite IV on Exercise Protocol: 0.4 mg Lexiscan given IV Heart Rate (bpm): Rest: 51 Max: 134 PMHR: 80 Blood Pressure: Rest: 126/80 Max: 158/84 Symptoms: chest presssure, shortness of breath Rest and peak stress ECG findings were abnormal and the exercise portion of the study was abnormal per attending physician Dr. Tavera due to EKG changes. For more details please see separate cardiac stress test report. FINDINGS: QUALITY OF STUDY: Excellent. PERFUSION DEFECT: None. LOCATION: N/A SIZE: N/A. SEVERITY: N/A. TYPE: N/A. WALL MOTION: Normal. LV SIZE: Normal. 50 mL. TID / TCD: None; 0.7 LVEF: Normal. Calculated EF 81%. SUMMARY: Myocardial perfusion imaging study is NORMAL. CONCLUSION: 1. Normal myocardial perfusion scan, No reversible ischemia 2. Abnormal exercise test secondary to EKG changes Dictated by: Eddie Macias MD on 05/13/2024 at 12:27 Approved by: dEdie Macias MD on 05/13/2024 at 12:29 Dictated By: Eddie Macias M.D. Signed By: 05/13/24 1230 DD/ 1229 TD/TT: Wet Wheeler: [place] [address] Nuclear Medicine Report Signed Patient: ALYSSIA MENDOZA MR#: [id number] : 1970 Acct:[id number] Age/Sex: 54 / F ADM Date: 05/12/24 Loc: [place] Attending Dr: Reinier Sheth M.D. Ordering Physician: Shoshana Sheth M.D. Date of Service: 05/12/24 Procedure(s): NM josh perf SPECT rest str Accession Number(s): [id number] cc: Shoshana Sheth M.D. Patient Name: ALYSSIA MENDOZA MR#: [id number] : 1970 Exam Date: 05/12/2024 Ordering Doctor: DR Shoshana Sheth . RADIOLOGY REPORT PROCEDURE: NM JOSH PE RF SPECT REST STR COMPARISON: None. INDICATIONS: CHEST P AIN, OTHER ABNORMALITIES OF HEART BEAT, TACHYCARDIA TECHNIQUE: Exam Description: Stress/Rest one day protocol gated SPECT Rest Imagin.2 m Ci Tc-99m Cardiolite IV on 05/12/2024 Stress Imaging 30.3 mCi Tc-99m Cardiolite IV on Exercise Protocol: 0 .4 mg Lexiscan given IV Heart Rate (bpm): Re st: 51 Max: 134 PMHR: 80 Blood Pressure: Res t: 126/80 Max: 158/84 Symptoms: chest presssure, shortness of breath Rest and peak stress ECG findings were abnormal and the exercise portion of the study was abnorm al per attending physician Dr. Tavera due to EKG changes. For more details ple ase see separate cardiac stress test report. FINDINGS: QUALITY OF STUDY: Excellent. PERFUSION DEFECT: None. LOCATION: N/A SIZE: N/A. SEVERITY: N/A. TYPE: N/A. WALL MOTION: Normal. LV SIZE: Normal. 50 mL. TID / TCD: None; 0.7 LVEF: Normal. Calcul ated EF 81%. SUMMARY: Myocardial perfusion imaging study is NORMAL. CONCLUSION: 1. Normal myocardial perfusion scan, No reversible ischemia 2. Abnormal exercise test secondary to EKG changes Dictated by: Eddie monzon MD on 05/13/2024 at 12:27 Approved by: Eddie monzon MD on 05/13/2024 at 12:29 Dictated By: Hayden Macias M.D. Signed By: 05/13/24 1230 DD/ 1229 TD/TT: Wet Wheeler: [id number] SHAHAB G SWAB Reviewed date:09/14/2024 12:05:51 PM Interpretation: Performing Lab: Notes/Report: CT lung screening low-dose Reviewed date:09/17/2024 11:32:21 AM Interpretation: Performing Lab: Notes/Report: Source Facility: [place] [address] CT Scan Report Signed Patient: ALYSSIA MENDOZA MR#: [id number] : 1970 Acct:[id number] Age/Sex: 54 / F ADM Date: 09/14/24 Loc: CT Attending Dr: Raquel Tavera D.O. Ordering Physician: Raquel Tavera D.O. Date of Service: 09/14/24 Procedure(s): CT lung screening low-dose Accession Number(s): [id number] cc: Shoshana Sheth M.D. [place] [id number] Patient Name: ALYSSIA MENDOZA MRN: [id number] date: 1970 Sex: F Assigned Patient Location: CT Current Patient Location: Accession/Order Number: [id number] Exam Date: 09/14/2024 13:20 Report Date: 09/16/2024 04:08 At the request of: RAQUEL TAVERA Procedure: CT lung screening low-dose EXAMINATION: CT lung screening low-dose HISTORY: Nicotine Dependence COMPARISON: CT lung screening 09/04/2023 TECHNIQUE: Axial, Coronal, and Sagittal images were created without the administration of IV contrast material. Dose reduction techniques were achieved by using automated exposure control and/or adjustment of mA and/or kV according to patient size and/or use of iterative reconstruction technique. FINDINGS: LUNGS: No visible pulmonary disease. PLEURA: No mass, effusion, or pneumothorax. VASCULATURE: No abnormality. MICHELLE: No mass or pathologic adenopathy. MEDIASTINUM: No mass or pathologic adenopathy. CARDIAC: No enlargement, pericardial thickening, or pericardial effusion. Coronary Artery calcifications: Coronary calcifications are mild. AORTA: No aneurysm or dissection. CHEST WALL: No mass or axillary adenopathy BONES: No bone lesion or fracture. LIMITED ABDOMEN: No suspicious findings. Limited images of the upper abdomen. OTHER: Negative. CT/CT lung screening low-dose IMPRESSION: 1. Lung-RADS Category 1 Negative. No nodules and definitely benign nodules. Continue annual screening with LDCT in 12 months. Electronically authenticated by: MYLES RAMIREZ Date: 09/16/2024 04:08 Dictated By: Myles Ramirez M.D. Signed By: 09/16/24 0411 DD/ 0408 TD/TT: Wet Wheeler: [place] [address] CT Scan Report Signed Patient: ALYSSIA MENDOZA MR#: [id number] : 1970 Acct:[id number] Age/Sex: 54 / F ADM Date: 09/14/24 Loc: CT Attending Dr: Raquel Tavera D.O. Ordering Physician: Raquel Tavera D.O. Date of Service: 09/14/24 Procedure(s): CT portillo g screening low-dose Accession Number(s): [id number] cc: Shoshana Sheth M.D. [place] [id number] Patient Name: ALYSSIA MENDOZA MRN: [id number] date: 1970 Sex: F Assigned Patient Location: CT Current Patient Location: Accession/Order Numb er: [id number] Exam Date: 13:20 Report Date: 09/16/2024 04:08 At the request of: RAQUEL TAVERA Procedure: CT lung screening low-dose EXAMINATION: CT lung screening low-dose HISTORY: Nicotine Dependence COMPARISON: CT lung screening 09/04/2023 TECHNIQUE: Axial, Coronal, and Sagittal images were created without the administration of IV contrast material. Dose reduction techniques were achieved by using automated exposure control and/or adjustment of mA and/or kV according to patient size and/ or use of iterative reconstruction technique. FINDINGS: LUNGS: No visible pulmonary disease. PLEURA: No mass, effusion, or pneumothorax. VASCULATURE: No abnormality. MICHELLE: No mass or pathologic adenopathy. MEDIASTINUM: No mass or pathologic adenopathy. CARDIAC: No enlargem ent, pericardial thickening, or pericardial effusion. Coronary Artery calcifications: Coronary calcifications are mild. AORTA: No aneurysm o r dissection. CHEST WALL: No mass or axillary adenopathy BONES: No bone lesio n or fracture. LIMITED ABDOMEN: No suspicious findings. Limited images of the upper abdomen. OTHER: Negative. C T/CT lung screening low-dose IMPRESSION: 1. Lung-RADS Categor y 1 Negative. No nodules and definitely benign nodules. Continue annual screening with LDCT in 12 months. Electronically authenticated by: MYLES RAMIREZ Date: 09/16/2024 04:08 Dictated By: Myles Ramirez M.D. Signed By: 09/16/24 0411 DD/ 0408 TD/TT: Wet Wheeler: RT pulmonary function test Reviewed date:06/09/2024 08:14:02 PM Interpretation: Performing Lab: Notes/Report: Source Facility: [place] [address] Respiratory Report Signed Patient: ALYSSIA MENDOZA MR#: [id number] : 1970 Acct:[id number] Age/Sex: 54 / F ADM Date: 06/02/24 Loc: CARD Attending Dr: Mita Mcnulty M.D. Ordering Physician: Mita Mcnulty M.D. Date of Service: 06/02/24 Procedure(s): RT pulmonary function test Accession Number(s): [id number] cc: [facility] Test Date: 2024-06-02 Pat Name: ALYSSIA MENDOZA Department: Room: - Gender: Female [employer]: Pamela Solano RRT : 1970 Requested By: Mita Pond Order Number: [id number] Marilyn MD: Raquel Tavera Interpretive Statements Pulmonary function testing was completed according to ATS criteria. Findings were considered accurate and reproducible, with exception of DLCO which did not meet ATS standards. No bronchodilator was administered due to normal spirometric values. Spirometry: -FEV1/FVC: Normal @ 79% -FEV1: Normal @ 91% -FVC: Normal @ 90% Lung volumes by plethysmography: -RV: Increased @ 148% -TLC: Normal @ 114% Diffusion capacity: -DLCO: Normal @ 101% when corrected for Hb 14.9g/dL Impressions: -Essentially normal PFT. If asthma remains in the differential, may consider methacholine challenge testing. Clinical correlation required. Electronically Signed On 06-09-2024 17:03:42 EDT by Raquel Tavera Dictated By: Raquel Tavera D.O. Signed By: 06/09/24170206/09/241702 DD/ 0853 TD/TT: Wet Wheeler: [place] [address] Respiratory Report Signed Patient: ALYSSIA MENDOZA MR#: [id number] : 1970 Acct:[id number] Age/Sex: 54 / F ADM Date: 06/02/24 Loc: CARD Attending Dr: Mita Mcnulty M.D. Ordering Physician: Mita Mcnulty M.D. Date of Service: 06/02/24 Procedure(s): RT pulmonary function test Accession Number(s): [id number] cc: [facility] Test Date: 2024-06-02 Pat Name: ALYSSIA Arteaga Department: 69 Room: - Gender: Female [employer] Teacher: Pamela Solano RRT : 1970 Requested By: Mita Pond Order Number: [id number] Marilyn MD: Raquel Tavera Interpretive Statements Pulmonary function testing was completed according to ATS criteria. Findings were considered accu rate and reproducible, with exception of DLCO which did not meet ATS standar ds. No bronchodilator was administered due to normal spirometric values. Spirometry: -FEV1/FVC: Normal @ 79% -FEV1: Normal @ 91% -FVC: Normal @ 90% Lung volumes by plethysmography: -RV: Increased @ 148% -TLC: Normal @ 114% Diffusion capacity: -DLCO: Normal @ 101% when corrected for Hb 14.9g/dL Impressions: -Essentially normal PFT. If asthma remains in the differential, may consider methacholine challen ge testing. Clinical correlation required. Electronically Sophia d On 06-09-2024 17:03:42 EDT by Raquel Tavera Dictated By: Raquel Tavera D.O. Signed By: 06/09/24170206/09/241702 DD/ TD/TT: Wet Wheeler: ANGELINA Reviewed date:10/13/2024 04:54:44 PM Interpretation: Performing Lab: Notes/Report: [facility] , Alanine Aminotransferase 22 14-59 U/L Performing Lab: see note ML - [facility] LB SGOT Reviewed date:10/13/2024 04:54:44 PM Interpretation: Performing Lab: Notes/Report: [facility] , Aspartate Amino Transferase 19 15-37 U/L Performing Lab: see note ML - [facility] Reason For Referral Diagnosis 1 Abnormal cardiovascu lar stress test (R94.39) Referral Organization [facility] Referring Provider First Name Lata Referring Provider Last Name [facility]erred Provider Specialty Cardiology Referral Priority Routine Diagnosis 1 Demyelinating diseas e of central nervous system, unspecified (G37.9) Referral Organization [facility] Referring Provider First Name Lata Referring Provider Last Name Meryl [facility] Referred Provider Pain Management, TB Referred Provider Specialty Pain Medicin e Referral Priority Routine Diagnosis 1 Boil of buttock (L02 .32) Referral Organization [facility] Referring Provider First Name Lata Referring Provider Last Name [facility] Referring Provider [facility] Referred Provider Paulie Mares Referred Provider Specialty General Surg cora Referral Priority Routine Medications Medication SIG (Take, Route, Frequency, Duration) Notes Start Date End Date Status Anoro Ellipta 62.5-25 MCG/ACT 1 puff Inhalation Once a day for 30 days 10/13/2024 Active Ventolin HFA 108 (90 Base) MCG/ACT 2 puff as needed Inhalation every 4 hrs 04/27/2024 Active Aspirin Adult 325 MG 1 tablet Orally Onc e a day for 30 day(s) 07/18/2023 Active Cefdinir 300 MG 2 capsule Orally onc e a day for 10 days 03/05/2025 Active Vitamin D3 50 MCG (1999 UT) 1 capsule Or ally Once a day Active Diclofenac Sodium 75 MG 1 tablet as need ed Orally Twice a day for 30 days 04/27/2024 Active Metoprolol Tartrate 25 MG 1 tablet with food Orally Twice a day for 30 days 08/12/2023 Active Doxycycline Monohydrate 100 MG 1 capsule Orally bid for 10 days 03/05/2025 Active Omeprazole 40 MG 1 capsule 30 minutes before morning meal Orally Once a day for 90 days Active Ondansetron 4 MG 1 tablet on the tong ue and allow to dissolve Orally Q 6 hours PRN for 30 days 07/08/2023 Active Rosuvastatin Calcium 5 MG 1 tablet Orall y Once a day 11/24/2024 Active tiZANidine HCl 4 MG 2 tabs Orally qhs fo r 30 days 04/27/2024 Active Social History Tobacco Use: Social History [...] ast year? No Points 0 Interpretation Negative Problems Problem Type SNOMED Code ICD Code Onset Dates Problem Status W/U Status Risk Notes Problem 90822917 Nicotine dependence, unspecified, uncomplicated (F17.200) Active confirmed Problem 998824184 Anxiety disorder, unspecified (F41.9) Active confirmed Problem 435543036 Demyelinating disease of central nervous system, unspecified (G37.9) Active confirmed Problem 72522017 Migraine, unspecified, not intractable, without status migrainosus (G43.909) Active confirmed Problem 311052983 Insomnia, unspecified (G47.00) Active confirmed Problem 059990269 Spastic hemiplegia affecting unspecified side (G81.10) Active confirmed Problem 15014632 Other chronic pain (G89.29) Active confirmed Problem Centrilobular emphysema (51214234) Centrilobular emphysema (J43.2) Active confirmed Problem 61357322 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 Problem 76500487 Hidradenitis suppurativa (L73.2) Active confirmed Problem 66643994006853 Other specified abnormal uterine and vaginal bleeding (N93.8) Active confirmed Problem 462792234 Contact with and (suspected) exposure to viral hepatitis (Z20.5) Active confirmed Problem Chest pain (47282506) Chest pain (R07.9) Active confirmed Problem Cervical radiculopathy (13851171) Cervical radiculopathy (M54.12) Active confirmed Problem Leg pain (37182856) Leg pain (M79.606) Active confirmed Problem Paresthesia (42472503) Paresthesia (R20.2) Active confirmed Problem Mental disorder caused by drug (684064468) Cigarette nicotine dependence with nicotine-induced disorder (F17.219) Active confirmed Problem Compression of brain (88944711) Chiari I malformation (G93.5) Active confirmed Problem Acute bronchiolitis (3190067) Acute bronchiolitis (J21.9) Active confirmed Problem Right sided weakness (884429032) Right sided weakness (M62.81) Active confirmed Problem 26213153 Pure hypercholesterol emia, unspecified (E78.00) Active confirmed Problem 66663662 Unspecified lump in the right breast, unspecified quadrant (N63.10) Active confirmed Problem 57876816 Depression, unspecified (F32.A) Active confirmed Problem 413271543 Low back pain, unspecified (M54.50) Active confirmed Vital Signs Heart Rate 63 /min 10/13/2024 Temperature 99.3 degrees Fahrenheit 03/05/2025 Respiratory Rate 18 /min 10/13/2024 Oximetry 95 % 10/13/2024 Blood pressure diastolic 78 mm Hg 03/05/2025 Height 63 in 03/05/2025 Blood pressure systolic 120 mm Hg 03/05/2025 Weight 154.2 lbs 03/05/2025 BMI 27.31 kg/m2 03/05/2025 Procedures Procedure Date Ordered Date Performed Result Body Sit e EMG Nerve Conduction Study A silvia (bilateral) 06/30/2024 N/A Encounters Encounter Location Date Provider Diagnosis [facility] [address] [place] [address] 05/05/2024 Lata Sheth [facility] [address] [place] [address] 05/12/2024 Lata Hortony [facility] [address] [facility] [place] [address] 05/12/2024 Lata Cliffordy Abnormal cardiovascu lar stress test R94.39 [facility] [address] [facility] [place] [address] 06/04/2024 Lata Hortony [facility] [address] [facility] [place] [address] 06/30/2024 Lata Hortony [facility] [address] [facility] [place] [address] 06/30/2024 Lata Hoy Paresthesia R20.2 Pulmonary [facility] [address] [facility] [address] 07/15/2024 Raquel Tavera [facility] [address] [facility] [place] [address] 09/07/2024 Lata Sheth Chiari I malformatio n G93.5 [facility] [address] [place] [address] 10/15/2024 Lata Hortony Paresthesia R20.2 [facility] [address] [facility] [place] [address] 01/01/2025 Lata Hortony Acute bronchitis, unspecified organism J20.9 [facility] [address] [facility] [place] [address] 03/08/2025 Lata Hoy Boil of buttock L02. 32 Pulmonary [facility] [address] [facility] [place] [address] 09/02/2024 Raquel Tavera Centrilobular emphys avi J43.2 ; Cigarette nicotine dependence with nicotine-induced disorder F17.219 ; Disorder of pigmentation, unspecified L81.9 and Encounter for screening for malignant neoplasm of respiratory organs Z12.2 [facility] [address] [facility] [place] [address] 06/30/2024 Lata Hoy Demyelinating diseas e of central nervous system, unspecified G37.9 and Insomnia, unspecified G47.00 [facility] [address] [place] [address] 04/27/2024 Lata Hoy Migraine, unspecifie d, not intractable, without status migrainosus G43.909 ; Cervical radiculopathy M54.12 and Chest pain R07.9 [facility] [address] [place] [address] 03/05/2025 Lata Hoy Boil of buttock L02. 32 [facility] [address] [place] [address] 10/13/2024 Raquel Tavera Centrilobular emphys avi J43.2 ; Cigarette nicotine dependence with nicotine-induced disorder F17.219 and Encounter for screening for malignant neoplasm of respiratory organs Z12.2 [facility] [address] [place] [address] 11/24/2024 Lata Hoy Acute bronchitis, unspecified organism J20.9 Assessments Encounter Date Diagnosis (ICD Code) Assessment Notes Treatment Notes Treatment Clinical Notes Section Notes 04/27/2024 Migraine, unspecified, not intractable, without status migrainosus (ICD-10 - G43.909) 04/27/2024 Cervical radiculopathy (ICD-10 - M54.12) 09/02/2024 Centrilobular emphysema (ICD-10 - J43.2) Though PFT from 06/02/2024 was normal, there is very mild centrilobular emphysema seen on LDCT 09/12/2023 (I personally reviewed the imaging). So far, there have been no groundbreaking findings from a cardiac w/up to suggest a major cardiac contribution to her dyspnea. Neither Trelegy nor Breztri are 1st line inhalers on Medicaid, but I have samples of Breztri to try. I suggested treating her if she had either asthma or COPD with triple inhaled therapy (ICS/LABA/LAMA) - if there is a response, then we can use that as a diagnostic tool. She voiced agreement. Patient was instructed to use Breztri 2 puffs BID and rinse after use. Will check for alpha-1 antitrypsin (AAT) deficiency. Pamphlet discussing AAT causes, testing, and potential treatment was provided to the patient. Appropriate follow-up is dependent on identified genotype. F/U 1 month. 09/02/2024 Cigarette nicotine dependence with nicotine-induced disorder (ICD-10 - F17.219) Discussed smoking cessation. Patient states she developed depression from Chantix. She has cut down on her smoking overall from up to 2ppd. She voiced she wants to quit smoking. She states she is going to work on it. Prior LDCT 09/12/2023 was RADS-1. LDCT would be due the end of this month; she does not believe one was ordered. Will order LDCT due the end of this month. 06/30/2024 Demyelinating disease of central nervous system, unspecified (ICD-10 - G37.9) 06/30/2024 Insomnia, unspecified (ICD-10 - G47.00) 10/13/2024 Centrilobular emphysema (ICD-10 - J43.2) Good response to Breztri. However, this is not first line therapy on her prescription plan. Will de-escalate to LAMA/LABA. Discussed options such as Anoro and Stiolto - she stated she would like to try Anoro. I showed her the Anoro device and demonstrated it. She voiced understanding. She technically does not need to rinse with it, but many people complain of the taste. Rx sent in. She is to call with any issues. Otherwise, F/U 6 months. 10/13/2024 Cigarette nicotine dependence with nicotine-induced disorder (ICD-10 - F17.219) 2ppd x 38 years (2024) Discussed smoking cessation again. She has cut back significantly. She is almost there - she was encouraged to quit for good. LDCT 09/14/2024 showed no signs of cancer - RADS-1. Next LDCT due 08/2025. 11/24/2024 Acute bronchitis, unspecified organism (ICD-10 - J20.9) Rest and drink more liquids, especially water. You may use a humidifier or vaporizer to help keep the drainage moist. Qnnv-xxv-scmjcov Nasal Saline may help the stuffy and runny nose. Use Ibuprofen and or Tylenol as needed for fever, chills, body aches or pain. Children 5 years old should not be given ebkt-ekj-kdkueia cough and cold medications such as guaifenesin and dextromethorphan. If you're over age 5, you may try nfue-jcs-hvnxhjr cold medications such as guaifenesin and dextromethorphan, or multi-symptom cold reliever such as Dayquil to help reduce the symptoms. Antibiotics have been prescribed. You should take these until completed and follow the directions. Antibiotics can sometimes cause upset stomach, and in rare cases, serious allergic reactions or serious gastrointestinal problems. If you start having severe abdominal pain, severe vomiting, or bloody diarrhea, you should be reevaluated by your physician or urgent care immediately. Follow up with your Primary Care Provider or return to clinic if symptoms do not improve within 3-5 days. If you develop severe symptoms such as shortness of breath, repeated vomiting, coughing up blood, or chest pain you should go to the emergency room or call 911 03/05/2025 Boil of buttock (ICD-10 - L02.32) gold watson - set up [facility] drNIl 05/12/2024 Abnormal cardiovascular stress test (ICD-10 - R94.39) 06/30/2024 Paresthesia (ICD-10 - R20.2) 09/07/2024 Chiari I malformation (ICD-10 - G93.5) 10/15/2024 Paresthesia (ICD-10 - R20.2) 01/01/2025 Acute bronchitis, unspecified organism (ICD-10 - J20.9) 03/08/2025 Boil of buttock (ICD-10 - L02.32) 10/13/2024 Encounter for screening for malignant neoplasm of respiratory organs (ICD-10 - Z12.2) Low-dose CT (LDCT) was recommended for lung cancer screening. The patient meets criteria including age 50-77, a smoking history of at least 20 pack-years, is currently smoking or has ceased smoking within the past 15 years, and has no signs or symptoms of lung cancer. Shared decision making performed with the patient. After LDCT has been completed, will review report and/or imaging and provide appropriate recommendations for the patient, including additional follow up if needed. Patient was counseled on smoking cessation/continued tobacco abstinence. Last LDCT was 09/12/2023. Next LDCT is due at the end of this month (08/2024). 09/02/2024 Disorder of pigmentation, unspecified (ICD-10 - L81.9) Patient states that her fingers will go white, especially in the cold. This is suggestive of a Raynaud's phenomenon. However, with her smoking, there is also concern for Buerger's disease. She does not have any other symptoms to suggest CREST or systemic sclerosis/scleroder ma. Her son does have a history of rheumatoid arthritis. I do not see any evidence of interstitial lung disease. If she were to have a scleroderma-associa carrie rheumatological disease, she would need to be monitored for pulmonary hypertension - echocardiogram on 06/02/2024 showed a high normal RVSP of 30mmHg. 04/27/2024 Chest pain (ICD-10 - R07.9) Nees stress cardiolyte 09/02/2024 Encounter for screening for malignant neoplasm of respiratory organs (ICD-10 - Z12.2) Low-dose CT (LDCT) was recommended for lung cancer screening. The patient meets criteria including age 50-77, a smoking history of at least 20 pack-years, is currently smoking or has ceased smoking within the past 15 years, and has no signs or symptoms of lung cancer. Shared decision making performed with the patient. After LDCT has been completed, will review report and/or imaging and provide appropriate recommendations for the patient, including additional follow up if needed. Patient was counseled on smoking cessation/continued tobacco abstinence. Last LDCT was 09/12/2023. Next LDCT is due at the end of this month (08/2024). Plan Of Treatment Pending Test Test Name Order Date CMP (COMPLETE METABOLIC PANEL) 4 HEMOGLOBIN A1C (GLYCO) 10/03/2023 IRON, TOTAL 10/03/2023 LIPID PANEL (CHOL/TRIG/HDL/LDL) 10/03/19 24 CBC WITH DIFF 10/03/2023 VITAMIN D, 25 LEVEL (TOTAL) 10/03/2023 MRI Brain w/wo contrast * 08/30/2023 MRI Brain w/wo contrast * 07/18/2023 MRI Brain w/wo contrast * 09/07/2024 Insulin Level 10/03/2023 EMG Nerve Conduction Study Arms (bilater al) 06/30/2024 CT Chest Low Dose for Screening* 023 Treadmill Stress Test with Nuclear Imagi ng 04/27/2024 STOOL OCCULT BLOOD 10/03/2023 ESTRELLA Ankle Brachial Index (18305) 024 LIPID PROFILE 10/04/2023 LIVER PROFILE 10/04/2023 MRI CSPINE WO CON 04/27/2024 NM STRESS or REST MULTI 08/11/2023 US CAROTID ART KALIE 07/18/2023 XR CHEST 2 V 04/27/2024 THYROID PANEL (T4/TSH/FREE T3) 4 ECHOCARDIO M/2D COMPLETE 07/18/2023 Holter Monitor - 3 days up to 14 days ESTRELLA Segmental Pressure Study of Lower Ex tremity 10/07/2023 Insurance Providers Payer Name Payer Address Payer Phone Subscriber Number Group Number Insured Name Patient Relationship to Insured Coverage Start Date Coverage End Date [employer] [place] [employer] [address] [address] [place] [address] [id number] Alyssia Mendoza Self - patient is the insured 3 Medical (General) History Medical History History ICD Code Centrilobular emphysema J43.2 Chiari I malformation G93.5 Cigarette nicotine dependence with nicot ine-induced disorder F17.219 Surgical History Surgery Date(Month/Year) Stretch Esophagus Surgery on face cholecystectomy Cervical Surgery
--- OUTSIDE RECORDS SUMMARY | 2025-04-05 09:47 | XMS_ITS | Clinical Summary ---
Author Organization [facility] Address [address] [place] [address] Care Team Providers Care Security Sales Consultant Name Role Phone Juancarlos Sheth MD Primary Care Provider [phone] Allergies No known active allergies Medications omeprazole (PriLOSEC) [address] capsule TAKE ONE CAPSULE BY MOUTH DAILY 30 MINUTES BEFORE MORNING MEAL 4 Active metoprolol tartrate (Lopressor) 25 mg tablet Take 25 mg by mouth with breakfast and with evening meal. 4 Active albuterol 90 mcg/actuation inhaler Inhale 2 puffs every 4 (four) hours if needed. 4 Active rosuvastatin (Crestor) 5 mg tabletIndications: Mixed hyperlipidemia Take 1 tablet (5 mg) by mouth at bedtime. 90 tablet 3 4 05/15/20 25 Active budesonide-glycopy r-formoterol (Breztri Aerosphere) 160-9-4.8 mcg/actuation HFA aerosol inhaler Inhale two times daily. Active aspirin 325 mg EC tablet Take 325 mg by mouth in the morning. 5 Active Anoro Ellipta 62.5-25 mcg/actuation blister with device Inhale 1 puff in the morning. 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 Depression 03/26/2025 Furuncle of buttock 03/26/2025 Hidradenitis suppurativa 03/26/2025 Migraines 03/26/2025 Nicotine dependence 03/26/2025 Overweight 03/26/2025 Spastic hemiplegia 03/26/2025 Pure hypercholesterolemia 03/26/2025 Coronary artery disease invo [place]ving [place] coronary artery of [place] heart without angina pectoris 10/06/2024 Abnormal stress test 07/18/2024 Essential hypertension 07/18/2024 Dyspnea on exertion 05/17/2024 Hyperlipidemia 05/17/2024 Palpitations 05/17/2024 Paroxysmal SVT (supraventricular tachycardia) Tobacco abuse 05/17/2024 Encounters Date Type Department Care Team Description 03/26/2025 1:20 PM EDT Office Visit [facility] at [address] [phone] Felicitas Mcnulty MD Coronary artery disease involving [place] coronary artery of [place] heart without angina pectoris (Primary Dx); Paroxysmal SVT (supraventricular tachycardia); Essential hypertension; Pure hypercholesterolemia; Tobacco abuse from Last 3 Months Family History Medical History Relation Name Comments No Known Problems Father No Known Problems Mother Relation Name Status Comments Father Mother Social History Tobacco Use Types Packs/Day Years Used Date Smoking Tobacco: Every Day Cigarettes 0.5 37 Smokeless Tobacco: Never Tobacco Cessation:Ready to Q uit: Not Asked; Counseling Given: Not Answered Alcohol Use Standard Drinks/Week Comments Never 0 (1 standard drink = 0.6 oz pur e alcohol) Comments Unknown Sex and Gender Information Value Date Recorded Sex Assigned at Female 10/05/2024 12:40 PM EST Legal Sex Female 12:03 AM EDT Gender Identity Female 10/05/2024 12:40 PM EST Sexual Orientation Heterosexual or Straight 09/17 12:40 PM EST Last Filed Vital Signs Vital Sign Reading Time Taken Comments Blood Pressure 133/84 03/26/2025 1:31 PM EDT Pulse 69 03/26/2025 1:31 PM EDT Temperature - - Respiratory Rate 18 09/15/2024 8:45 AM EST Oxygen Saturation 96% 03/26/2025 1:31 PM EDT Inhaled Oxygen Concentration - - Weight 70.8 kg (156 lb) 03/26/2025 1:31 PM EDT Height 162.6 cm (5' 4 ) 03/26/2025 1:31 PM EDT Body Mass Index 26.78 03/26/2025 1:31 PM EDT Plan of Treatment Health Maintenance Due Date Last Done Comments CT Colonography 1971 Colonoscopy 1971 Colorectal Cancer Screening 1971 FIT-DNA 1971 FIT 1971 FOBT 1971 Sigmoidoscopy 1971 Depression Screening 1983 Hepatitis B Vaccines (1 of 3 - 19+ 3-dose series) 1990 Pneumococcal Vaccine: Pediat rics (0 to 5 Years) and At-Risk Patients (6 to 64 Years) (1 of 2 - PCV) 1990 Pap Smear 02/10/1992 Adult Tetanus 1993 Cervical Cancer Screening 2001 HPV/Cotest 2001 Mammogram 2011 Zoster Vaccines (1 of 2) 2021 COVID-19 Vaccine ( - 2023-2 5 season) 2024 Influenza Vaccine (#1) 2025 HIB Vaccines Aged Out No longer eligi ble based on patient's age to complete this topic HPV Vaccines Aged Out No longer eligi ble based on patient's age to complete this topic IPV Vaccines Aged Out No longer eligi ble based on patient's age to complete this topic Meningococcal B Vaccine Aged Out No l onger eligible based on patient's age to complete this topic Meningococcal Vaccine Aged Out No zeeshan neel eligible based on patient's age to complete this topic Rotavirus Vaccines Aged Out No longer eligible based on patient's age to complete this topic Insurance [employer] Care Teams Security Sales Consultant Relationship Specialty Start Date End Date Juancarlos Sheth MD [phone] [facility] [place] [place] [address] PCP - General 05/15/24
--- OUTSIDE RECORDS SUMMARY | 2025-04-05 10:07 | XMS_ITS | CCD ---
Author Organization [facility] Care Team Providers Care Newspaper Delivery Driver Name Role Phone PHYSICIAN, DEFAULT Unavailable Unavailable [...] Consulting Unavailable HOY, DR ANNA Attending Unavailable Hoy, Shoshana Primary Care Physician [phone] Shoshana Sheth Referring Unavailable Paulie CRABTREE Attending Unavailable Paulie CRABTREE Attending Unavailable MITA TRINIDAD Attending Unavailable MITA TRINIDAD Attending Unavailable MITA TRINIDAD Referring Unavailable MITA TRINIDAD Attending Unavailable MITA TRINIDAD Attending Unavailable Allergies Allergy Classification Reported Allergen(s) Allergy Type Date of Onset Reaction(s) Facility Opioid Agonists (2 sources) Codeine Drug Allergy 3 [facility] Repository (1 source) No Known Medication Allergies; Translations: [No Known Medication Allergies] Propensity to adverse reactions (disorder) [facility] [place] [facility] Repository Medications Current Medications Medication Drug Class(es) Dates Sig (Normalized) Sig (Original) Anoro Ellipta (2 sources) Start: 03-09-2025 Anoro Ellipta 1 inh, Inhalation, Daily, Refill(s) 0 Start Date: 03/09/25 Status: Ordered Repeat number: 1 aspirin 325 mg delayed release oral tablet (2 sources) Platelet Aggregation Inhibitor, Nonsteroidal Anti-inflammatory Drug Start: 03-09-2025 take 1 tablet by mouth once daily aspirin 325 mg Oral EC Tab 325 mg = 1 tab(s), Oral, Daily, Refills(s) 0 Start Date: 03/09/25 Status: Ordered Repeat number: 1 diclofenac sodium 75 mg delayed release oral tablet (1 source) Nonsteroidal Anti-inflammatory Drug Start: 03-09-2025 take 1 tablet by mouth twice daily diclofenac sodium 75 mg Oral EC Tab 75 mg = 1 tab(s), Oral, BID, Refills(s) 0 Start Date: 03/09/25 Status: Ordered Repeat number: 1 metoprolol tartrate 25 mg oral tablet (2 sources) beta-Adrenergic Darren Start: 03-09-2025 take 1 tablet by mouth twice daily Metoprolol tartrate 25 mg Tab 25 mg = 1 tab(s), Oral, BID, Refills(s) 0 Start Date: 03/09/25 Status: Ordered Repeat number: 1 omeprazole 40 mg delayed release oral capsule (2 sources) Proton Pump Inhibitor Start: 03-09-2025 take 1 capsule by mouth once daily omeprazole 40 mg Cap-DR 40 mg = 1 cap(s), Oral, Daily, Refills(s) 0 Start Date: 03/09/25 Status: Ordered Repeat number: 1 rosuvastatin calcium 5 mg oral tablet (2 sources) HMG-CoA Reductase Inhibitor Start: 03-09-2025 take 1 tablet by mouth once daily rosuvastatin 5 mg Tab 5 mg = 1 tab(s), Oral, Daily, Refills(s) 0 Start Date: 03/09/25 Status: Ordered Repeat number: 1 tiZANidine 4 mg oral tablet (1 source) Central alpha-2 Adrenergic Agonist Start: 03-09-2025 take 2 tablets by mouth at bedtime tiZANidine 4 mg Tab 8 mg = 2 tab(s), Oral, Bedtime, Refills(s) 0 Start Date: 03/09/25 Status: Ordered Repeat number: 1 Ventolin HFA 90 mcg/inh Aerosol-Adpt (2 sources) Start: 03-09-2025 Ventolin HFA 90 mcg/inh Aerosol-Adpt 2 inh, Inhalation, q4hr Shortness of breath or wheezing, Refill(s) 0 Start Date: 03/09/25 Status: Ordered Repeat number: 1 Vitamin D2 2000 intl units oral capsule (2 sources) Start: 03-09-2025 take 1 capsule by mouth once daily Vitamin D2 1999 intl units oral capsule 50 mcg = 1 cap(s), Oral, Daily, cap(s), Refills(s) 0 Start Date: 03/09/25 Status: Ordered Repeat number: 1 Problems Active Problems Problem Classification Problem Date Documented Date Episodic/Chronic Anxiety disorders (2 sources) Anxiety 03-09-2025 Chronic Chronic obstructive pulmonary disease and bronchiectasis (2 sources) Centriacinar emphysema 03-09-2025 Chronic Coronary atherosclerosis and other heart disease (4 sources) Coronary arteriosclerosis; Translations: [Atherosclerotic heart disease of nondalton coronary artery without angina pectoris] Onset: 10-06-2024 Chronic Disorders of lipid metabolism (10 sources) Pure hypercholesterolemia; Translations: [Hyperlipidemia] Onset: 05-15-2024 03-09-2025 Chronic Essential hypertension (4 sources) Hypertensive disorder; Translations: [Essential (primary) hypertension] Onset: 07-18-2024 Chronic Headache; including migraine (2 sources) Migraine 03-09-2025 Chronic Mood disorders (2 sources) Depressive disorder 03-09-2025 Chronic Other nervous system disorders (2 sources) Chiari malformation type I 03-09-2025 Chronic Other nervous system disorders (2 sources) Demyelinating disease of central nervous system 03-09-2025 Chronic Other nutritional; endocrine; and metabolic disorders (2 sources) Overweight 03-09-2025 Episodic Other nutritional; endocrine; and metabolic disorders (1 source) Overweight in adulthood with body mass index of 25 or more but less than 30 03-10-2025 Episodic Other skin disorders (2 sources) Hidradenitis suppurativa 03-09-2025 Episodic Paralysis (2 sources) Spastic hemiplegia 03-09-2025 Chronic Skin and subcutaneous tissue infections (2 sources) Furuncle of buttock; Translations: [Furuncle of buttock] Onset: 03-10-2025 Episodic Spondylosis; intervertebral disc disorders; other back problems (2 sources) Cervical radiculopathy 03-09-2025 Episodic Substance-related disorders (2 sources) Nicotine dependence 03-09-2025 Chronic Unclassified (3 sources) CONTACT W/AND (SUSP) EXPOS COVID-19; Translations: [CONTACT W/AND (SUSP) EXPOS COVID-19] Onset: 09-28-2020 Unclassified (2 sources) 6 month month follow up Onset: 03-26-2025 Unclassified (1 source) Supraventricular tachycardia, unspecified; Translations: [Supraventricular tachycardia, unspecified] Onset: 05-17-2024 Past or Other Problems Problem Classification Problem Date Documented Date Episodic/Chronic Cardiac dysrhythmias (2 sources) Palpitations; Translations: [Palpitations] Onset: 05-15-2024 Episodic Immunizations and screening for infectious disease (4 sources) Contact with and (suspected) exposure to other viral communicable diseases; Translations: [CONTCT EXPS OTH VIRL COMMUNICABL DZ] Onset: 07-13-2020 Episodic Other lower respiratory disease (2 sources) Other forms of dyspnea; Translations: [Other forms of dyspnea] Onset: 05-15-2024 Episodic Other screening for suspected conditions (not mental disorders or infectious disease) (2 sources) Abnormal result of other cardiovascular function study; Translations: [Abnormal result of other cardiovascular function study] Onset: 07-18-2024 Episodic Other upper respiratory infections (1 source) Acute recurrent frontal sinusitis; Translations: [ACUTE RECURRENT FRONTAL SINUSITIS] Onset: 07-18-2020 Episodic Residual codes; unclassified (2 sources) Tobacco user; Translations: [Tobacco use] Onset: 05-15-2024 03-10-2025 Episodic Residual codes; unclassified (1 source) Tobacco use; Translations: [Tobacco use] Onset: 05-17-2024 Episodic Unclassified (1 source) CONTACT W/AND (SUSP) EXPOS COVID-19; Translations: [CONTACT W/AND (SUSP) EXPOS COVID-19] Onset: 09-23-2020 Unclassified (1 source) Supraventricular tachycardia, unspecified; Translations: [Supraventricular tachycardia, unspecified] Onset: 05-15-2024 Results Test Name Value Interpretation Reference Range Facility Office Visiton 03-26-2025 Follow-up visit [id number] Alyssia Mendoza 1970 F Date Provider Department Center 03/26/2025 [id number] TRINIDAD Family History Problem Relation Age of Onset No Known Problems Mother No Known Problems Father Family Status - Relation Status Age at Mother Father Level of Service:70697 [place] OFFICE/OUTPATIENT ESTABLISHED LOW MDM 20 MIN Reason for Visit and Comments: Hyperlipidemia [182] Hypertension [537978] Coronary Artery Disease [187] 6 month month follow up [Other] Normal [facility] Ambulatory Visit Summaryon 0 03-10-2025 Ambulatory Visit Summary Ambulatory Visit Summary ALYSSIA MENDOZA :1970 Visit Date:03/10/2025 Ambulatory Visit Instructions Your Care Team Attending Physician - LEYDA EASTON, Paulie Marcelo Primary Care Physician - Shoshana Sheth MD This Is Your Medications List Contact prescribing physician if questions or concerns albuterol (Ventolin HFA 90 mcg/inh Aerosol-Adpt) aspirin (aspirin 325 mg Oral EC Tab) ergocalciferol (Vitamin D2 2000 intl units oral capsule) metoprolol (Metoprolol tartrate 25 mg Tab) omeprazole (omeprazole 40 mg Cap-DR) rosuvastatin (rosuvastatin 5 mg Tab) umeclidinium-vilanterol (Anoro Ellipta) Procedures Performed Cholecystectomy, Dilatation of esophagus, Dilatation of esophagus, Meniscal repair. Discharge Vitals Heart Rate (Peripheral) 72 Respiratory Rate 16 Blood Pressure 112/66 Height 160 cm Height 63 in Weight 69.3 kg Weight 152.78 lb BMI 27.07 Medications What How Much When Instructions Unchanged albuterol (Ventolin HFA 90 mcg/ inh Aerosol-Adpt) 2 Inhalation Inhalation Every 4 hours as needed for Shortness of breath or wheezing Contact prescribing physician if questions or concerns Unchanged aspirin (aspirin 325 mg Oral EC Tab) 1 Tablets By Mouth Every day Contact prescribing physician if questions or concerns Unchanged ergocalciferol (Vitamin D2 2000 intl units oral capsule) 1 Capsules By Mouth Every day Contact prescribing physician if questions or concerns Unchanged metoprolol (Metoprolol tartrate 25 mg Tab) 1 Tablets By Mouth 2 times a day Contact prescribing physician if questions or concerns Unchanged omeprazole (omeprazole 40 mg Cap-DR) 1 Capsules By Mouth Every day Contact prescribing physician if questions or concerns Unchanged rosuvastatin (rosuvastatin 5 mg Tab) 1 Tablets By Mouth Every day Contact prescribing physician if questions or concerns Unchanged umeclidinium-vilanterol (Anoro Ellipta) 1 Inhalation Inhalation Every day Contact prescribing physician if questions or concerns Allergies No Known Allergies No Known Medication Allergies Problems Ongoing - Any problem that you are currently receiving treatment for. Anxiety BMI 27.0-27.9,adult Centrilobular emphysema Cervical radiculopathy Chiari I malformation EFFICIENCY EXPERT demyelinating disease Depression Hidradenitis suppurativa Migraines Nicotine dependence Overweight Pure hypercholesterolemia Spastic hemiplegia Patient Survey You may receive a survey via text or e-mail asking about your office visit. Please share your experience with us by completing your survey. We appreciate your feedback and thank you for choosing us for your care. Patient Portal You may access all of your results and other medical record information on our secure patient portal. If you are not signed up for this yet, please contact [employer] at [phone] to get signed up today. Language Information Language assistance services are available as needed. Normal [facility] 36on 10-15-2024 36 Regarding labs from 10/13/2024: MD Christa Garza MA Inform patient that her lipids look excellent. Continue current diet and exercise. Patient informed. Normal [facility] Office Visiton 10-06-2024 Follow-up visit [id number] Alyssia Mendoza Tiki 1970 F Date Provider Department Center 10/06/2024 [id number] TRINIDAD [facility] Family History Problem Relation Age of Onset No Known Problems Mother No Known Problems Father Family Status - Relation Status Age at Mother Father Level of Service:33569 [place] OFFICE/OUTPATIENT ESTABLISHED LOW MDM 20 MIN Reason for Visit and Comments: Shortness of Breath [103971] - Had CTA coronaries a few weeks ago at [facility]. She is now seeing Dr. Montano of pulmonology, who gave her a new inhaler. She says this has been helping her SOB. Palpitations [674356] Hyperlipidemia [182] - No lab results since Sep 2023. Hypertension [315534] Normal [facility] CTA HEART CORONARY W IV CONT RAST [...] Ceja MD. Not Vldtd Invalid Interpretation Code [facility] Office Visiton 07-15-2024 Follow-up visit [id number] Alyssia Mendoza Tiki 1970 F Date Provider Department Center 07/15/2024 MITA CAVAZOS Family History Problem Relation Age of Onset No Known Problems Mother No Known Problems Father Family Status - Relation Status Age at Mother Father Level of Service:35100 [place] OFFICE/OUTPATIENT ESTABLISHED MOD MDM 30 MIN Reason for Visit and Comments: Hyperlipidemia [182] Hypertension [161354] Palpitations [321202] - Had echo last month. dyspnea on exertion [Other] - Had PFT's last month and was referred to Dr. Montano of pulmonology. She is scheduled to see him 09/02/2024. Denies chest pain. Still very SOB with very minimal exertion. smoker [Other] - Says she's cut down to half PPD. Normal [facility] 36on 06-15-2024 36 Regarding echo and P FT result from 06/02/2024: MD Christa Garza MA PFT appears to be normal. Her echo was also normal. Referral to pulmonary to evaluate for exertional dyspnea. Also advised the patient to start walking and aim to achieve 1 mile per day 5 days a week. Spoke with patient and she agrees to see Dr. Montano. Referral sent. Normal [facility] Office Visiton 05-15-2024 Follow-up visit [id number] Alyssia Mendoza Tiki 1970 F Date Provider Department Center 05/15/2024 MITA CAVAZOS Family History Problem Relation Age of Onset No Known Problems Mother No Known Problems Father Family Status - Relation Status Age at Mother Father Level of Service:61243 [place] OFFICE/OUTPATIENT NEW MODERATE MDM 45 MINUTES Reason for Visit and Comments: New Patient [632] - Pt had a abnormal stress Normal [facility] Orders Onlyon 05-15-2024 Orders Only [id number] Alyssia Mendoza 1970 F Date Provider Department Center 05/15/[address] [facility] Family History Problem Relation Age of Onset No Known Problems Mother No Known Problems Father Family Status - Relation Status Age at Mother Father Normal [facility] FSHon 03-25-2021 FSH 29.0 mIU/mL Normal [facility] Comment on above: Result Comment: Adul t Female: Follicular phase 3.5 - 12.5 Ovulation phase 4.7 - 21.5 Luteal phase 1.7 - 7.7 Postmenopausal 25.8 - 134.8 Performed By: #### [facility] #### [facility] [address] [place] [address] Judi Lexus INSULINon 03-25-2021 Insulin 7.9 uIU/mL Normal 2.6-24.9 [facility] Comment on above: Performed By: #### C BC #### [facility] [address] [place] [address] Judi Lexus CBC AUTO DIFFon 03-24-2021 BASO # 0.0 103/ul Normal 0.0-0.1 [facility] Comment on above: Performed By: #### C BC #### [facility] [address] [place] [address] Judi Lexus Basophils/100 WBC (Bld) 0.4 % Normal 0.2-2.0 [facility] Comment on above: Performed By: #### C BC #### [facility] [address] [place] [address] Judi Lexus EO # 0.1 103/ul Normal 0.0-0.7 [facility] Comment on above: Performed By: #### C BC #### [facility] [address] [place], [place] [id number] Judi Lexus Eosinophils/100 WBC (Bld) 1.1 % Normal 0.9-7.0 [facility] Comment on above: Performed By: #### C BC #### [facility] [address] [place] [address] Judi Lexus Erythrocyte distribution width (RBC) [Ratio] 13.1 % Normal 11.0-15.0 [facility] Comment on above: Performed By: #### C BC #### [facility] [address] [place] [address] Judi Alberts Hematocrit (Bld) [Volume fraction] 44.1 % Normal 36.0-48.0 [facility] Comment on above: Performed By: #### C BC #### [facility] [address] [place] [address] Judi Alberts Hemoglobin (Bld) [Mass/Vol] 14.9 g/dL Normal 12.0-16.0 [facility] Comment on above: Performed By: #### C BC #### [facility] [address] [place] [address] Judi Alberts IG # 0.01 10e3/ul Normal 0.00-0.03 [facility] Comment on above: Performed By: #### C BC #### [facility] [address] [place] [address] Judi Alberts IG % 0.1 % Normal 0.0-0.5 [facility] Comment on above: Performed By: #### C BC #### [facility] [address] [place] [address] Judi Alberts LYMPH # 1.7 103/ul Normal 1.2-3.8 [facility] Comment on above: Performed By: #### C BC #### [facility] [address] [place] [address] Judi Alberts Lymphocytes/100 WBC (Bld) 22.1 % Normal 20.5-60.0 [facility] Comment on above: Performed By: #### C BC #### [facility] [address] [place] [address] Judi Alberts MANUAL DIFF REQ NO Normal [facility] Comment on above: Performed By: #### C BC #### [facility] [address] [place] [address] Judi Alberts MCH (RBC) [Entitic mass] 30.0 pg Normal 26.7-34.0 [facility] Comment on above: Performed By: #### C BC #### [facility] [address], [place] [address] Judi Alberts MCHC (RBC) [Mass/Vol] 33.8 g/dL Normal 29.9-35.2 [facility] Comment on above: Performed By: #### C BC #### [facility] [address], [place] [address] Judi Alberts MCV (RBC) [Entitic vol] 88.7 fL Normal 81.0-99.0 [facility] Comment on above: Performed By: #### C BC #### [facility] [address] [place] [id number] Judi Alberts MONO # 0.6 103/ul Normal 0.3-0.8 [facility] Comment on above: Performed By: #### C BC #### [facility] [address] [id number] Judi Alberts Monocytes/100 WBC (Bld) 8.3 % Normal 1.7-12.0 [facility] Comment on above: Performed By: #### C BC #### [facility] [address] [id number] Judibeckie Alberts NEUT # 5.1 103/ul Normal 1.4-6.5 [facility] Comment on above: Performed By: #### C BC #### [facility] [address] [id number] Judi Alberts Neutrophils/100 WBC (Bld) 68.0 % Normal 43.0-75.0 [facility] Comment on above: Performed By: #### C BC #### [facility] [address], [place] [address] Judibeckie Alberts Platelet mean volume (Bld) [Entitic vol] 10.3 fL Normal 9.5-13.5 [facility] Comment on above: Performed By: #### C BC #### [facility] [address] [place] [id number] Judi Lexus PLT 270 103/ul Normal 150-450 [facility] Comment on above: Performed By: #### C BC #### [facility] [address] [place], [place] [address] Judi Lexus RBC 4.97 106/ul Normal 4.20-5.40 [facility] Comment on above: Performed By: #### C BC #### [facility] [address] [id number] Judi Lexus WBC 7.5 103/ul Normal 4.0-11.0 [facility] Comment on above: Performed By: #### C BC #### [facility] [address] [id number] Judi Lexus FREE THYROXINE INDEX T7on FTI 3.15 Normal [facility] Comment on above: Performed By: #### C MP, LIPID, TSH, T7 #### [facility] [address] [place] [address] Judi Lexus T3U 35.0 % Normal 23.5-40.5 [facility] Comment on above: Performed By: #### C MP, LIPID, TSH, T7 #### [facility] [address] [id number] Judi Lexus T4 [Mass/Vol] 9.00 ug/dL Normal 5.53-11.00 [facility] Comment on above: Performed By: #### C MP, LIPID, TSH, T7 #### [facility] [address] [place], [place] [address] Judi Lexus GLYCOHEMOGLOBIN A1Con 2020 ADA RECOMMENDATION ADA THERAPEUTIC TARG ET 6.0 - 7.0 ACTION SUGGESTED > 7.0 Normal [facility] Comment on above: Performed By: #### A 1C #### [facility] [address], [place] [address] Judi Lexus Glucose [Mass/Vol] 105 mg/dL Normal [facility] Comment on above: Performed By: #### A 1C #### [facility] [address] [id number] Judi Lexus HbA1c (Bld) [Mass fraction] 5.3 % Normal <=6.0 [facility] Comment on above: Performed By: #### A 1C #### [facility] [address], [place] [address] Judi Lexus IRONon 03-24-2021 Iron [Mass/Vol] 36.0 ug/dL Critically low 37.0-170.0 [facility] Comment on above: Performed By: #### I SUZY #### [facility] [address], [place] [address] Judi Lexus LIPID PROFILEon 03-24-2021 CHOL-HDL RATIO NORM SEE BELOW Normal [facility] Comment on above: Result Comment: 3.3 - 4.4 LOW RISK 4.4 - 7.1 AVERAGE RISK 7.1 - 11.0 MODERATE RISK >11.0 HIGH RISK Performed By: #### C MP, LIPID, TSH, T7 #### [facility] [address] [id number] Judi Lexus Cholesterol [Mass/Vol] 226 mg/dL Critically high <=200 [facility] Comment on above: Performed By: #### C MP, LIPID, TSH, T7 #### [facility] [address] [id number] Judi Lexus Cholesterol in HDL [Mass/Vol] 55 mg/dL Normal [facility] Comment on above: Performed By: #### C MP, LIPID, TSH, T7 #### [facility] [address] [place], [place] [address] Judi Lexus Cholesterol in LDL [Mass/Vol] 161.6 mg/dL Normal [facility] Comment on above: Performed By: #### C MP, LIPID, TSH, T7 #### [facility] [address] [place], [place] [address] Judi Lexus Cholesterol.total/C holesterol in HDL [Mass ratio] 4.1 {ratio} Normal [facility] Comment on above: Performed By: #### C MP, LIPID, TSH, T7 #### [facility] [address] [place], [place] [address] Judi Lexus HDL NORMAL > or = 60 mg/dl - LO W CARDIOVASCULAR RISK <40 mg/dl - HIGH CARDIOVASCULAR RISK Normal [facility] Comment on above: Performed By: #### C MP, LIPID, TSH, T7 #### [facility] [address] [place], [place] [address] Judi Lexus LDL CALC NORMAL SEE BELOW Normal [facility] Comment on above: Result Comment: <100 mg/dl OPTIMAL 100 - 129 mg/dl NEAR OR ABOVE OPTIMAL 130 - 159 mg/dl BORDERLINE HIGH 160 - 189 mg/dl HIGH >190 mg/dl VERY HIGH Performed By: #### C MP, LIPID, TSH, T7 #### [facility] [address] [id number] Judi Lexus Triglyceride [Mass/Vol] 47 mg/dL Normal <=150 [facility] Comment on above: Performed By: #### C MP, LIPID, TSH, T7 #### [facility] [address] [id number] Judi Lexus VLDL CALC 9.4 mg/dL Normal [facility] Comment on above: Performed By: #### C MP, LIPID, TSH, T7 #### [facility] [address] [id number] Judibeckie Alberts PROF 14(COMP METB)on 021 Albumin [Mass/Vol] 3.4 g/dL Critically low 3.5-5.0 [facility] Comment on above: Performed By: #### C MP, LIPID, TSH, T7 #### [facility] [address] [place], [place] [id number] Judi Lexus Albumin/Globulin [Mass ratio] 0.9 {ratio} Normal [facility] Comment on above: Performed By: #### C MP, LIPID, TSH, T7 #### [facility] [address] [id number] Judi Lexus ALP [Catalytic activity/Vol] 95 U/L Normal 38-126 [facility] Comment on above: Performed By: #### C MP, LIPID, TSH, T7 #### [facility] [address] [id number] Judi Lexus ALT [Catalytic activity/Vol] 17 U/L Normal 9-52 [facility] Comment on above: Performed By: #### C MP, LIPID, TSH, T7 #### [facility] [facility] [address] [address] Judi Lexus Anion gap [Moles/Vol] 12.0 mmol/L Normal [facility] Comment on above: Performed By: #### C MP, LIPID, TSH, T7 #### [facility] [address] [address] Judi Lexus AST [Catalytic activity/Vol] 14 U/L Normal 14-36 The [facility] Comment on above: Performed By: #### C MP, LIPID, TSH, T7 #### [facility] [address] [place] [address] Judi Lexus Bilirubin [Mass/Vol] 0.3 mg/dL Normal 0.2-1.3 The [facility] Comment on above: Performed By: #### C MP, LIPID, TSH, T7 #### [facility] [address] [place] [address] Judi Lexus Calcium [Mass/Vol] 9.0 mg/dL Normal 8.4-10.[address] [facility] Comment on above: Performed By: #### C MP, LIPID, TSH, T7 #### [facility] [address] [place] [address] Judi Lexus Chloride [Moles/Vol] 105 mmol/L Normal 98-107 [facility] Comment on above: Performed By: #### C MP, LIPID, TSH, T7 #### [facility] [address] [place] [address] Judi Lexus CO2 [Moles/Vol] 26.3 mmol/L Normal 22.0-30.0 The [facility] Comment on above: Performed By: #### C MP, LIPID, TSH, T7 #### [facility] [address] [place], [place] [id number] Judi Lexus Creatinine [Mass/Vol] 0.89 mg/dL Normal 0.52-1.04 [facility] Comment on above: Performed By: #### C MP, LIPID, TSH, T7 #### [facility] [address] [place], [place] [id number] Judi Lexus EGFR-AF SLOVAK >60 Normal >=60 The [facility] Comment on above: Performed By: #### C MP, LIPID, TSH, T7 #### [facility] [address], [place] [address] Judi Lexus EGFR-NON AF [place]OVAK >60 Normal >=60 The [facility] Comment on above: Performed By: #### C MP, LIPID, TSH, T7 #### [facility] [address], [place] [address] Judi Lexus Globulin (S) [Mass/Vol] 3.6 g/dL Normal [facility] Comment on above: Performed By: #### C MP, LIPID, TSH, T7 #### [facility] [address] [address] Judi Lexus Glucose [Mass/Vol] 98 mg/dL Normal 74-[address] [facility] Comment on above: Performed By: #### C MP, LIPID, TSH, T7 #### [facility] [address] [place] [address] Judi Lexus Potassium [Moles/Vol] 4.3 mmol/L Normal 3.4-5.0 [facility] Comment on above: Performed By: #### C MP, LIPID, TSH, T7 #### [facility] [address] [id number] Judi Lexus Protein [Mass/Vol] 7.0 g/dL Normal 6.1-8.[address] [facility] Comment on above: Performed By: #### C MP, LIPID, TSH, T7 #### [facility] [address] [id number] Judi Lexus Sodium [Moles/Vol] 139 mmol/L Normal 137-[address] [facility] Comment on above: Performed By: #### C MP, LIPID, TSH, T7 #### [facility] [address] [id number] Judi Lexus Urea nitrogen [Mass/Vol] 19.0 mg/dL Critically high 7.0-17.0 [facility] Comment on above: Performed By: #### C MP, LIPID, TSH, T7 #### [facility] [address] [id number] Judi Lexus Urea nitrogen/Creatinine [Mass ratio] 21.3 mg/mg Normal [facility] Comment on above: Performed By: #### C MP, LIPID, TSH, T7 #### [facility] [address] [place] [address] Judi Alberts TSHon 03-24-2021 TSH 1.176 uIU/mL Normal 0.470-4.680 The [facility] Comment on above: Performed By: #### C MP, LIPID, TSH, T7 #### [facility] [address] [place] [address] Judi Alberts TSH RANGE SEE BELOW Normal The [facility] Comment on above: Result Comment: <0.3 4 UIU/ml HYPERTHYROID 0.34-5.60 UIU/ml EUTHYROID >5.60 UIU/ml HYPOTHYROID Performed By: #### C MP, LIPID, TSH, T7 #### [facility] [address] [place] [address] Judi Lexus Covid-19 PCR (CVDTBH)on EUA Statement SEE BELOW Normal The [facility] Comment on above: Result Comment: This test is not yet approved or cleared by the [place] FDA. When there are no FDA-approved or cleared tests available, and other criteria are met, FDA can make tests available under an emergency access mechanism called an Emergency Use Authorization (EUA). The EUA for this test is supported by the [place] of Health and Human Service?s (HHS?s) declaration [...] SARS-CoV-2. Performed By: #### C VDTBH #### [facility] [address] [place] [address] Judi Alberts SARS-CoV-2 (COVID-19) RNA JEWEL+probe Ql (Unsp spec) Not detected Normal NOT DETECTED The [facility] Comment on above: Result Comment: This test is not yet approved or cleared by the [place] FDA. When there are no FDA-approved or cleared tests available, and other criteria are met, FDA can make tests available under an emergency access mechanism called an Emergency Use Authorization (EUA). The EUA for this test is supported by the [employer] of Health and Human Service's (HHS's) declaration [...] longer be used). Performed By: #### C VDTBH #### [facility] [address] [place] [address] Judi Alberts COVID-19 PCRon 07-14-2020 SARS-CoV-2 (COVID-19) RNA JEWEL+probe Ql (Unsp spec) Not detected Normal Not Detected The [facility] Comment on above: Result Comment: This nucleic acid amplification test was developed and its performance characteristics determined by [employer]. Nucleic acid amplification tests include PCR and [...] assay. Performed By: #### C VDPCR #### [facility] [address], [place] [address] Judi Alberts Encounters Encounter Date Encounter Type Care Provider Facility Start: 03-26-2025 End: 03-26-2025 ambulatory [facility] Start: 03-10-2025 End: 03-10-2025 ambulatory Paulie CRABTREE Facility:[facility] Start: 03-10-2025 End: 03-10-2025 Patient encounter procedure Paulie CRABTREE [facility] [place] Start: 03-09-2025 End: 03-09-2025 ambulatory Shoshana Sheth Facility:[facility] [place] Start: 03-09-2025 End: 03-09-2025 Patient encounter procedure Paulie CRABTREE [facility] [place] Start: 03-08-2025 ambulatory Shoshana Sheth Facility:[facility] Start: 10-06-2024 End: 10-06-2024 ambulatory [facility] Start: 09-15-2024 End: 09-15-2024 ambulatory [facility] Start: 07-15-2024 End: 07-15-2024 ambulatory [facility] Start: 05-15-2024 ambulatory [facility] Start: 05-17-[address] SHOSHANA SHETH Facility :[facility] Start: 04-03-2021 Encounter for genera l adult medical examination without abnormal findings DR SHOSHANA SHETH [facility] Start: 03-24-2021 End: 03-25-[address] SHOSHANA SHETH Facility:[facility] Start: 03-24-2021 End: 03-25-2021 Encounter for general adult medical examination without abnormal findings DR SHOSHANA SHETH Facility:[facility] Start: 09-23-2020 End: 09-23-[address] SHOSHANA SHETH Facility:[facility] Start: 07-13-2020 End: 07-14-[address] SHOSHANA SHETH Facility:[facility] Start: 06-05-[address] SHOSHANA SHETH Facility :[facility] Start: 10-25-2017 End: 10-26-2017 Ambulatory DEFAULT PHYSICIAN Facility:[facility] Procedures Date Procedure Procedure Detail Performing Clinician Cholecystectomy Paulie CRABTREE Dilatation of esophagus (disorder) Paulie MASONL Dilatation of esophagus (disorder) Paulie MASONL History of surgical procedure on cervical spine Paulie MASONL Repair of meniscus Paulie SANZ Payers Date Payer Category Payer Medicaid [id number] 2023 Private Health Insurance [id number] 1971 Unknown [id number] 2.16.84 [id number] 1971 Unknown [id number] 2.16.84 [id number] 1971 Unknown [id number] 2.16.84 [id number] 1971 Unknown [id number] 2.16.84 [id number] 1971 Unknown [id number] 2.16.84 [id number] 1971 Unknown [id number] 2.16.8 [id number] 1971 Unknown [id number] 2.16.8 [id number] 1959 Private Health Insurance [id number] 1958 Self-pay [id number] Unknown Social History Date Type Detail Facility Tobacco smoking status [facility] [place] Sex Assigned At Female [facility] Start: 04-14-2010 Sex Female (finding) [facility] Start: 03-10-2025 Tobacco smoking status Light t obacco smoker (finding) [facility] [place] Tobacco smoking status Never Josiase [facility] [place] Progress note 03-26-2025 Note Date & Type Note Facility 03-26-2025 Note [place] [facility] Note Reason for cardiology visit: Follow-up Chief Complaint: Exertional dyspnea HPI: 03/26/2025 The patient is here today for follow-up visit. She states that she is trying to walk every day. She still gets short of breath when she overexerts herself. She reports that she cut down extremely on her smoking however she went back to smoke more when she is under stress and currently she smokes about half pack per day. She denies any chest discomfort at rest or with exertion. She denies orthopnea or paroxysmal nocturnal dyspnea or dizziness or palpitations or legs edema or leg discomfort on exertion. She denies any cough. 10/06/2024 Patient is here today for follow-up [...] denies pain. 05/15/2024 Alyssia Mendoza is a 55 y.o. female without past medical history, she [...] referred for treadmill stress nuclear test at [facility] and it was reported that the nuclear [...] (four) hours if needed., Disp: , Rfl: Anoro Ellipta 62.5-25 mcg/actuation blister with device, Inhale 1 puff in the morning., Disp: , Rfl: aspirin 325 mg EC tablet, Take 325 mg by mouth in the morning., Disp: , Rfl: metoprolol tartrate (Lopressor) 25 mg tablet, Take 25 mg by mouth with breakfast and with evening meal., Disp: , Rfl: omeprazole (PriLOSEC) [address] capsule, TAKE ONE CAPSULE BY MOUTH DAILY 30 MINUTES BEFORE MORNING MEAL, Disp: , Rfl: rosuvastatin (Crestor) 5 mg tablet, Take 1 tablet (5 mg) by mouth at bedtime., Disp: 90 tablet, Rfl: 3 qhgjldojqu-gjwwmurb-giwrmacaiz (Breztri Aerosphere) 160-9-4.8 mcg/actuation HFA aerosol inhaler, Inhale two times daily. (Patient not taking: Reported on 03/26/2025), Disp: , Rfl: Last Recorded Vitals Visit Vitals BP 133/84 (BP Location: Left arm, Patient Position: Sitting) Pulse 69 Ht 1.626 m (5' 4 ) Wt 70.8 kg (156 lb) SpO2 96% BMI 26.78 kg/m??? Smoking Status Every Day BSA 1.79 m??? Physical Examination: GENERAL: (more content not included)... [facility] Clinical Note 03-10-2025 Note Date & Type Note Facility 03-10-2025 Note General Surgery Offi ce/Clinic Note Chief Complaint consultation for perirectal abscess HPI Staff 55 year old female presents on consultation from Dr. Sheth for perirectal abscess. Reports nodule to inner buttock x 6 months. Verbalized nodule has waxed and waned in size and discomfort. Over the past 1-2 weeks, this area significantly increased in size and discomfort. She was applying warm compresses which resulted in drainage of serosanguineous material. PCP prescribed Cefdinir 600mg daily x 10 days and Doxycycline 100mg BID x 10 days on 03/05 she continues on these. History of Present Illness 55 yo female with h/o hypercholesterolemia, COPD, cervical radiculopathy, Chiari I malformation, migraines, depression/anxiety, spastic hemiplegia, referred for possible perirectal abscess; patient reports swelling/intermittent drainage of small pimple/boil on right medial buttock for past 6 months; patient tried to squeeze/pick area, caused large increase in swelling/pain; placed on antibiotics by Dr Sheth 03/05/25; patient reports spontaneous drainage of serosanguineous fluid 3 days ago, with decrease in pain and swelling; no drainage currently; no previous I & D or surgery in area; on regular asa daily, no NSAID use; smokes daily. Review of Systems PHQ Score Initial Depression Screen Score: 0 SCORE ROS - Provider Constitutional: no fever, no sweats, no weight loss. Eyes: no glasses, no blurred vision, no visual loss. ENMT: no dentures, no hoarseness, no swallowing difficulties, no hearing loss, no ear infection(s), no nose bleeds. Cardiovascular: normal blood pressure, no chest pain, regular heartbeat, no heart murmur. Respiratory: no shortness of breath, no cough, no asthma, no wheezing. Gastrointestinal: no nausea, no vomiting, no diarrhea, no constipation, no blood in stool, no change in bowel habits, no abdominal pain, no hepatitis. Genitourinary: no kidney stones, no urine infection, no dysuria. Musculoskeletal: no pain, no weakness. Skin: no changing moles, no rash, no skin lumps. Neurologic: no seizures, no epilepsy, no headache. Psychiatric: no emotional or psychiatric problem. Heme/Lymph: no bleeding problems, no anemia, no blood clots, no transfusions. Allergy/Immunologic: no swollen lymph nodes/glands, no IV drug abuse. Other: Additional ROS info: Except as noted in the above Review of Systems and in the History of Present Illness, all other systems have been reviewed and are negative or noncontributory. Physical Exam Vitals & Measurements HR: 72(Peripheral) RR: 16 BP: 112/66 HT: 160 cm HT: 63 in WT: 69.3 kg WT: 152.78 lb BMI: 27.07 Musculoskeletal: normal gait, digits and nails without infection, nodes, cyanosis, clubbing. Skin: no rashes, no lesions, no ulcers, right medial buttock with 5 mm area of induration, increased hair in area, no edema or fluctuance, on open areas or drainage, nontender Psychiatric/Neuro: oriented to time, place, person, judgement normal, affect appropriate for age, insight intact, no focal deficits. Tests: , review of old records completed , Assessment/Plan 1. Furuncle of buttock (L02.32: Furuncle of buttock) infection resolved, no open areas, minimal induration; complete course of antibiotics; do not squeeze or poke area; keep clean and dry; call with problems/questions. 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 Medications Anoro Ellipta, 1 inh, Inhalation, Daily aspirin 325 mg Oral EC Tab, 325 mg= 1 tab(s), Oral, Daily Metoprolol tartrate 25 mg Tab, 25 mg= 1 tab(s), Oral, BID omeprazole 40 mg Cap-DR, 40 mg= 1 cap(s), Oral, Daily rosuvastatin 5 mg Tab, 5 mg= 1 tab(s), Oral, Daily Ventolin HFA 90 mcg/inh Aerosol-Adpt, 2 inh, Inhalation, q4hr, PRN Vitamin D2 2000 intl units oral capsule, 50 mcg= 1 cap(s), Oral, Daily Allergies No Known Allergies No Known Medication Allergies Social History Alcohol - Denies Alcohol Use, 03/10/2025 Substance Abuse Current, Marijuana, 1-2 times per month, 03/10/2025 Tobacco 4 or less cigarettes(less than 1/4 pack)/day in last 30 days Tobacco Use:. Never Smokeless Tobacco Use:. Cigarettes, Started age 16.0 Years., 03/10/2025 Family History Patient was adopted [facility] Comment on above: Result Comment: Elec tronically Signed By: LEYDA EASTON, Paulie Garvey.[email or web address]\Date and Time Signed: 03/10/25 14:25 EDT Progress note 10-06-2024 Note Date & Type Note Facility 10-06-2024 Note [place] [facility] Note Reason for cardiology [...] referred for treadmill stress nuclear test at [facility] and it was reported that the nuclear [...] (four) hours if needed., Disp: , Rfl: kohbgxnkab-vkmryanl-njhxsketff (Breztri Aerosphere) 160-9-4.8 mcg/actuation HFA aerosol inhaler, [...] 92, calcium 9 (more content not included)... [facility] Progress note 07-15-2024 Note Date & Type Note Facility 07-15-2024 Note [place] [facility] Note Reason for cardiology [...] referred for treadmill stress nuclear test at [facility] and it was reported that the nuclear [...] no lower extr (more content not included)... [facility] Progress note 05-15-2024 Note Date & Type Note Facility 05-15-2024 Note [place] [facility] Note Reason for cardiology [...] referred for treadmill stress nuclear test at [facility] and it was reported that the nuclear [...] 5.5% Total biliru (more content not included)... [facility] Evaluation + Plan note Note Date & Type Note Facility Evaluation + Plan note Future Appointments Appointment Date:03/10/2025 02:00:00 PM Scheduled Provider:Paulie CRABTREE MD Location:[facility] Appointment Type:[address] [facility] [place] Hospital course Narrative Note Date & Type Note Facility Hospital course Narrative No data available for this section [facility] [place] [facility] Discharge instructions Note Date & Type Note Facility Hospital Discharge instructions No data available for this section [facility] [place] Progress note Note Date & Type Note Facility Progress note No data available for this section [facility] [place] Summary Purpose Family History No Family History Records FoundNo Family History Records Found No data available for this section No data available for this section No Family History Records FoundNo Family History Records Found Advance Directives No Advanced Directives Records FoundNo Advanced Directives Records FoundNo Advanced Directives Records FoundNo Advanced Directives Records Found Additional Source Comments INFORMATION SOURCE (unrecogn ized section and content) DATE CREATED AUTHOR 03/10/2018 [facility] DATE CREATED AUTHOR AUTHOR'S ORGANIZ ATION 04/04/2021 [facility] DATE CREATED AUTHOR AUTHOR'S ORGANIZ ATION 03/11/2025 Patrick Murphy [facility] DATE CREATED AUTHOR AUTHOR'S ORGANIZ ATION 03/31/2025 [facility] Patient Care team informatio n (unrecognized section and content) Personnel Name: Shoshana Sheth MD Address: [address] [place] [address] Telecom: Personnel Name: Shoshana Sheth MD Address: [address] [place] [address] Telecom: FOR RECORDS PERTAINING TO PATIENTS WHO ARE [...] BE BASED ON THE PRIMARY CLINICAL RECORDS. [employer] provides no warranty or guarantee of the accuracy or completeness of information in this document.
[2025-04-05 12:26] LABS: Alanine Aminotransferase 14 U/L (14-59); Aspartate Amino Transferase 15 U/L (15-37); Cholesterol 171 mg/dL (<=200); HDL Cholesterol 52 mg/dL (40-60); Triglycerides 62 mg/dL (<=150); VLDL CHOLESTEROL 12.4 mg/dL
== END 2025-04-05 09:44 | disposition home or self-care (01) ==
LOC: LAB 09:44
PROVIDERS: PCP Family Medicine; Visit Provider Internal Medicine Cardiovascular Disease
DX: E78.00 Pure hypercholesterolemia, unspecified (principal); I25.10 Atherosclerotic heart disease of native coronary artery without angina pectoris
CPT/HCPCS: 36415; 80061; 84450; 84460